=== PATIENT | male | born 1970 | race American Indian/Alaskan Native ===

== ENCOUNTER 2019-04-25 19:12 | Emergency (ER) | payer MEDICAID ==
--- NOTE | 2019-04-25 20:07 | Event Note ---
ED Screening Note Date of service: 04/25/19 Time: 20:04 ED Screening Note: Patient is a 49 yo AA male with h/o chronic lymphedema, HTN, schizophrenia and Bipolar d/o who presented to the ED with left lower leg ulcerated wounds for over 2 weeks. Patient states that he has been using peroxide to clean the wound. Patient has been on oral antibiotics, which he completed but cannot remember the name. Patient requesting for wound care. Patient is alert and oriented x 3 and is in no acute distress. This initial assessment/diagnostic orders/clinical plan/treatment(s) is/are subject to change based on patients health status, clinical progression and re- assessment by fellow clinical providers in the ED. Further treatment and workup at subsequent clinical providers discretion. Patient/guardian urged not to elope from the ED as their condition may be serious if not clinically assessed and ma naged. Initial orders include: Wound care
[2019-04-26] MEDS ORDERED: IBUPROFEN 800 MG TAB PO ONE (00:21)
[2019-04-26] MEDS ORDERED: SULFAMETHOXAZOLE/TRIMETHOPRIM 800/160MG DS TAB PO ONE (00:21)
[2019-04-26] MEDS ORDERED: MUPIROCIN 2% OINT 22 GM TP ONE (00:21)
--- NOTE | 2019-04-26 03:04 | Emergency Department Report ---
ED General Adult HPI - General Chief complaint: Wound/Laceration Stated complaint: INFECTION Source: patient, EMS Mode of arrival: Ambulatory Limitations: No Limitations - History of Present Illness Initial comments: Patient is a 49 yo AA male with h/o chronic lymphedema, HTN, schizophrenia and Bipolar d/o who presented to the ED with left lower leg ulcerated wounds for over 2 weeks. Patient states that he has been using peroxide to clean the wound. Patient has been on oral antibiotics, which he completed but cannot remember the name. Patient denies fever, chills, nausea, vomiting, dizziness, hematochezia, headache, numbness and tingling or weakness of lower extremities bilaterally, change in vision or syncope, chest pain or shortness of breath. MD Complaint: left lower leg ulcers -: Gradual, month(s) (3) Location: lower extremity (left lower) Severity scale (0 -10): 3 Quality: aching, sharp Consistency: constant Improves with: none Worsens with: none Associated Symptoms: denies other symptoms. denies: confusion, chest pain, cough, diaphoresis, headaches, loss of appetite, nausea/vomiting, rash, shortness of breath, syncope, weakness Treatments Prior to Arrival: none - Related Data Previous Rx's Medication Instructions Recorded Last Taken Type Ibuprofen [Motrin] 800 mg PO Q8HR PRN #30 tablet 04/26/19 Unknown Rx Mupirocin [Bactroban 2% OINT] 1 applic TP Q8H #1 tube 04/26/19 Unknown Rx Sulfamethoxazole/Trimethoprim 1 each PO Q12H #20 tablet 04/26/19 Unknown Rx [Bactrim DS TAB] traMADoL [Ultram] 50 mg PO Q6HR PRN #12 tablet 04/26/19 Unknown Rx Allergies Allergy/AdvReac Type Severity Reaction Status Date / Time Penicillins Allergy Unknown Verified 04/25/19 20:01 ED Review of Systems ROS: Stated complaint: INFECTION Other details as noted in HPI Constitutional: denies: chills, fever Eyes: denies: eye pain, eye discharge, vision change ENT: denies: ear pain, throat pain Respiratory: denies: cough, shortness of breath, wheezing Cardiovascular: denies: chest pain, palpitations Endocrine: no symptoms reported Gastrointestinal: denies: abdominal pain, nausea, diarrhea Genitourinary: denies: urgency, dysuria Musculoskeletal: arthralgia (left lower leg pain due to ulcerated multiple wounds), myalgia. denies: back pain Skin: other (Ulcerated left lower leg wounds). denies: rash, lesions Neurological: denies: headache, weakness, paresthesias Psychiatric: denies: anxiety, depression Hematological/Lymphatic: denies: easy bleeding, easy bruising ED Past Medical Hx - Past Medical History Previous Medical History?: No Hx Hypertension: Yes Hx Diabetes: Yes (BOARDERLINE) Hx Psychiatric Treatment: Yes - Social History Smoking Status: Current Every Day Smoker Substance Use Type: None - Medications Home Medications: Home Medications Medication Instructions Recorded Confirmed Last Taken Type Ibuprofen [Motrin] 800 mg PO Q8HR PRN #30 tablet 04/26/19 Unknown Rx Mupirocin [Bactroban 2% OINT] 1 applic TP Q8H #1 tube 04/26/19 Unknown Rx Sulfamethoxazole/Trimethoprim 1 each PO Q12H #20 tablet 04/26/19 Unknown Rx [Bactrim DS TAB] traMADoL [Ultram] 50 mg PO Q6HR PRN #12 tablet 04/26/19 Unknown Rx ED Physical Exam - General Limitations: No Limitations General appearance: alert, in no apparent distress - Head Head exam: Present: atraumatic, normocephalic, normal inspection - Eye Eye exam: Present: normal appearance, PERRL, EOMI - ENT ENT exam: Present: normal exam, normal orophraynx, mucous membranes moist, TM's normal bilaterally, normal external ear exam - Neck Neck exam: Present: normal inspection - Respiratory Respiratory exam: Present: normal lung sounds bilaterally. Absent: respiratory distress, wheezes, rales, rhonchi, chest wall tenderness, accessory muscle use, prolonged expiratory - Cardiovascular Cardiovascular Exam: Present: regular rate, normal rhythm, normal heart sounds. Absent: systolic murmur, diastolic murmur, rubs, gallop - GI/Abdominal GI/Abdominal exam: Present: soft, normal bowel sounds. Absent: tenderness, guarding, hyperactive bowel sounds, hypoactive bowel sounds - Extremities Exam Extremities exam: Present: normal inspection, full ROM, normal capillary refill, calf tenderness (left lower leg ulcerated wounds with tenderness) - Back Exam Back exam: Present: normal inspection, full ROM. Absent: tenderness, CVA tenderness (R), CVA tenderness (L), muscle spasm, paraspinal tenderness, vertebral tenderness - Neurological Exam Neurological exam: Present: alert, oriented X3, CN II-XII intact, normal gait, reflexes normal - Psychiatric Psychiatric exam: Present: normal affect, normal mood - Skin Skin exam: Present: warm, dry, intact, normal color, other (ulcerated left lower leg ulcerated wounds with tenderness and purulent discharge). Absent: rash ED Course Vital Signs 04/25/19 19:31 Temperature 98.9 F Pulse Rate 106 H Respiratory 20 Rate Blood Pressure 157/83 O2 Sat by Pulse 100 Oximetry ED Medical Decision Making - Medical Decision Making Patient is a 49 yo AA male with h/o chronic lymphedema, HTN, schizophrenia and Bipolar d/o who presented to the ED with left lower leg ulcerated wounds for over 2 weeks. In the ED patient is alert and oriented x 3 and is in no acute distress. Patient was treated for pain and had the wounds cleaned and dressed appropriately. Patient was discharged home on pain medications and oral antibiotics, and follow up with his PCP in 7-10 days for reevaluation. Patient was also advised to return the ED immediately if symptoms get worse. - Differential Diagnosis cellulitis; stasis dermatitis; lymphedema Critical care attestation.: If time is entered above; I have spent that time in minutes in the direct care of this critically ill patient, excluding procedure time. ED Disposition Clinical Impression: Cellulitis of left lower extremity, Chronic wound of extremity, Stasis edema with ulcer of left lower extremity Disposition: DC-01 TO HOME OR SELFCARE Is pt being admited?: No Does the pt Need Aspirin: No Condition: Stable Instructions: Cellulitis (ED), Stasis Dermatitis (ED), Chronic Wound Care (ED) Additional Instructions: Take medication with food, drink plenty of fluids and follow up with your primary care physician in 7-10 days for reevaluation. Return to the ED immediately if symptoms get worse. Prescriptions: Sulfamethoxazole/Trimethoprim [Bactrim DS TAB] 1 each PO Q12H #20 tablet Mupirocin [Bactroban 2% OINT] 1 applic TP Q8H #1 tube Ibuprofen [Motrin] 800 mg PO Q8HR PRN #30 tablet PRN Reason: Pain , Severe (7-10) traMADoL [Ultram] 50 mg PO Q6HR PRN #12 tablet PRN Reason: Pain Referrals: [facility] [Outside] - 3-5 Days [facility] - 3-5 Days Time of Disposition: 03:03 Print Language: HUNGARIAN
[2019-04-26 04:03] VITALS: BP 120/84
== END 2019-04-26 04:03 | disposition home or self-care (01) ==
LOC: ED 19:12
DX: I87.312 Chronic venous hypertension (idiopathic) with ulcer of left lower extremity (principal); L97.828 Non-pressure chronic ulcer of other part of left lower leg with other specified severity; L03.116 Cellulitis of left lower limb; I10 Essential (primary) hypertension; E11.9 Type 2 diabetes mellitus without complications; F17.200 Nicotine dependence, unspecified, uncomplicated; Z79.899 Other long term (current) drug therapy; Z88.0 Allergy status to penicillin

== ENCOUNTER 2019-06-14 23:04 | Emergency (ER) | payer MEDICAID ==
[2019-06-15 00:21] LABS: Basophils % (Auto) 0.5 % (0.0-1.8); Eosinophils # (Auto) 0.1 K/mm3 (0.0-0.4); Eosinophils % (Auto) 1.8 % (0.0-4.3); Hematocrit 34.4 % (35.5-45.6); Hemoglobin 11.5 gm/dl (11.8-15.2); Lymphocytes # (Auto) 1.4 K/mm3 (1.2-5.4); Lymphocytes % (Auto) 18.2 % (13.4-35.0); Mean Corpuscular HGB Conc 34 % (32-34); Mean Corpuscular Volume 79 fl (84-94); Monocytes # (Auto) 0.8 K/mm3 (0.0-0.8); Monocytes % (Auto) 10.1 % (0.0-7.3); Platelet Count 218 K/mm3 (140-440); Red Blood Count 4.37 M/mm3 (3.65-5.03); Red Cell Distribution Width 16.1 % (13.2-15.2)
[2019-06-15 00:32] LABS: Bilirubin,Urine NEG (Negative); Blood,Urine NEG (Negative); Color,Urine Yellow (Yellow); Mucus,Urine FEW /HPF; Protein,Urine <15 mg/dL mg/dL (Negative)
[2019-06-15 00:36] LABS: BUN/Creatinine Ratio 14; Blood Urea Nitrogen 13 mg/dL (9-20); Calcium 8.9 mg/dL (8.4-10.2); Hemolysis Index 2
[2019-06-15 00:39] LABS: Amphetamine Screen,Urine PRESUMPTIVE NEGATIVE; Benzodiazepines Screen,Urine PRESUMPTIVE NEGATIVE; Cannabinoid Screen,Urine PRESUMPTIVE NEGATIVE; Cocaine Screen,Urine PRESUMPTIVE NEGATIVE; Methadone Screen,Urine PRESUMPTIVE NEGATIVE; Opiate Screen,Urine PRESUMPTIVE NEGATIVE
--- NOTE | 2019-06-15 01:32 | Emergency Department Report ---
<LEXIS ABREU - Last Filed: 06/15/19 15:20> ED Psych HPI - General Chief Complaint: Psych Stated Complaint: MH Time Seen by Provider: 06/15/19 00:23 - Related Data Previous Rx's Medication Instructions Recorded Last Taken Type Ibuprofen [Motrin] 800 mg PO Q8HR PRN #30 tablet 04/26/19 Unknown Rx Mupirocin [Bactroban 2% OINT] 1 applic TP Q8H #1 tube 04/26/19 Unknown Rx Sulfamethoxazole/Trimethoprim 1 each PO Q12H #20 tablet 04/26/19 Unknown Rx [Bactrim DS TAB] traMADoL [Ultram] 50 mg PO Q6HR PRN #12 tablet 04/26/19 Unknown Rx Allergies Allergy/AdvReac Type Severity Reaction Status Date / Time Penicillins Allergy Unknown Verified 04/25/19 20:01 ED Past Medical Hx - Medications Home Medications: Home Medications Medication Instructions Recorded Confirmed Last Taken Type Ibuprofen [Motrin] 800 mg PO Q8HR PRN #30 tablet 04/26/19 Unknown Rx Mupirocin [Bactroban 2% OINT] 1 applic TP Q8H #1 tube 04/26/19 Unknown Rx Sulfamethoxazole/Trimethoprim 1 each PO Q12H #20 tablet 04/26/19 Unknown Rx [Bactrim DS TAB] traMADoL [Ultram] 50 mg PO Q6HR PRN #12 tablet 04/26/19 Unknown Rx ED Course - Reevaluation(s) Reevaluation #1: 06/15/19 15:21 PINO DAVE Male : 1970 MedRec# [id number] 06/15/19 14:38 - MH Supervisor [employer]'s Note by ANA ISAAC Acct Num: [id number] : 1970 Patient Age: 49 MENTAL HEALTH ASSESSMENT COMPLETED: Pt is a 49 year old male who presented to the ED for a wound on his leg and reporting SI/HI at triage (06/13); pt reported SI w/ plan to jump in front of a train to dr (06/14 1:20am); placed on 1013 and mental health consult ordered. Assessment conducted 1pm 06/15/2019. Pt denies to this sales assistant institutional sales any suicidal thoughts or plans. Pt explained that he told the dr he was going to get hit by a train, "because I was mad at the [place] [facility]; I want more allowance and to buy more cigarettes." The therapist and machine group leader reports that the pt has no history of making suicidal threats and no attempts. "He does say things to get attention to get his way." Pt was future planning and identified goals. Pt carries a diagnosis of Bipolar Disorder. Pt currently is involved with the [facility] ([place], [place]). The pt is involved with groups Mon to Tue 10am to 2pm (currently on hold due to COVID-19). The pt sees his psychiatrist, therapist and PP/case aide weekly. The pt currently has telehealth appointments. The pt had an inpatient admission in December 2018, but pt reports he can not recall why he was admitted. Pt is inconsistent with taking his medications. The pt is displaying no signs of thought disorder/psychosis at this time. The pt does present with a speech delay; although collateral reports that this is the pt's baseline when speaking. Advised to recommend the pt speak slower and more clearly, and the pt will be better understood. The pt denies AH or VH. The pt has impaired concentration and attention. The pt has limited judgment and fair insight. PT denies any homicidal ideations or plans. Pt denies substance use; pt's toxicology came back negative. Pt resides at [facility] ([address], [place] [address]) a home of [employer]. RECOMMENDED: Recommend rescinding 1013 as pt does not meet criteria for inpatient admission at this time. Recommend the pt return to outpatient providers. Spoke with pt's therapist who is going to advise the pt's team (therapist, case aide, peer support and psychiatrist) that the pt has been to the ED. The therapist will be following up with the pt this evening via phone. Safety plan will be completed with the patient and speak with his support team. The pt has a wound care appointment June 18 at 1pm at [facility]. Ana Betancourt LPC Initialized on 06/15/19 14:38 - END OF NOTE Per my exam the patient is bilateral lower extremities show probable lymphedema. Patient has multiple open ulcers with no surrounding erythema. There is a crusted coating of serous fluid on most of the wounds. The wounds were covered with Xeroform gauze and Saulo wrap. Patient will follow-up with wound care clinic. ED Medical Decision Making - Lab Data Result diagrams: 06/14/19 23:58 06/14/19 23:58 ED Disposition Clinical Impression: Suicidal ideation, Lymphedema of both lower extremities, Chronic cutaneous venous stasis ulcer, Medical clearance for psychiatric admission, Homeless, Malingerer Disposition: DC-01 TO HOME OR SELFCARE Is pt being admited?: No Does the pt Need Aspirin: No Condition: Stable Referrals: PRIMARY CARE, [Primary Care Provider] - 3-5 Days [facility] [Outside] - 3-5 Days <JUANCHO TERRY - Last Filed: 06/15/19 19:21> ED Psych HPI - General Source: patient Mode of arrival: Ambulatory Limitations: No Limitations - History of Present Illness Initial Comments: 49 yo AA male with h/o chronic lymphedema, HTN, schizophrenia and Bipolar d/o presents to the hospital planing of suicidal ideation and chronic leg wounds. Patient has had wounds to his left leg for least 3 months. Patient has been to the ER multiple times since April with complaint of leg wounds as well. He has been intermittently treated with oral antibiotics and topical anti-microbial medication. Patient is homeless he states he cleans wounds currently with hydrogen peroxide and is not currently on antibiotics. He denies fever. He has not followed up with wound care or primary care doctor as recommended on previous visits. He now complains of being suicidal since this morning with plan to jump in front of a train. He denies previous suicidal attempt. ED Review of Systems ROS: Stated complaint: MH Other details as noted in HPI Comment: All other systems reviewed and negative ED Past Medical Hx - Past Medical History Previous Medical History?: Yes Hx Hypertension: Yes Hx Diabetes: Yes (BOARDERLINE) Hx Psychiatric Treatment: Yes (Schizophrenia, bipolar disorder) Additional medical history: Lymphedema - Surgical History Past Surgical History?: Yes Additional Surgical History: leg - Social History Smoking Status: Current Every Day Smoker Substance Use Type: None ED Physical Exam - General Limitations: No Limitations - Other Other exam information: General: No acute distress Head: Atraumatic Eyes: normal appearance ENT: Moist mucous membranes Neck: Normal appearance, no midline tenderness Chest: Clear to auscultation bilaterally CV: Regular rate and rhythm Abdomen: Soft, normal bowel sounds, nontender, nondistended, no rebound or guarding Back: Normal inspection Extremity: Bilateral lymphedema with skin ulcerations to left lower leg. No warmth or purulent drainage Neuro: Alert O x 3, no facial asymmetry, speech clear, no gross motor sensory deficit Skin: See extremity exam ED Course Vital Signs 06/14/19 06/14/19 06/15/19 23:24 23:29 00:30 Temperature 97.6 F Pulse Rate 102 H Respiratory 20 20 Rate Blood Pressure 110/64 Blood Pressure [Right] O2 Sat by Pulse 95 96 Oximetry 06/15/19 06/15/19 02:06 09:40 Temperature 98.1 F 98.2 F Pulse Rate 84 87 Respiratory 18 22 Rate Blood Pressure Blood Pressure 128/57 142/88 [Right] O2 Sat by Pulse 98 98 Oximetry ED Medical Decision Making - Lab Data Result diagrams: 06/14/19 23:58 06/14/19 23:58 - Medical Decision Making Patient presents to the hospital with suicidal ideation. He is medically cleared and 1013 has been signed. Patient has chronic lymphedema and chronic leg ulcerations. No signs of active infection at this time. Wound care consult requested in a.m. for advice regarding proper wound care. - Differential Diagnosis Suicidal, homeless, homicidal Critical Care Time: No Critical care attestation.: If time is entered above; I have spent that time in minutes in the direct care of this critically ill patient, excluding procedure time. ED Disposition Is pt being admited?: No Time of Disposition: 01:38
[2019-06-15 09:43] VITALS: BP 142/88
[2019-06-15] MEDS ORDERED: ADENOSINE 6 MG/2 ML INJ ONE (12:02)
== END 2019-06-15 17:30 | disposition home or self-care (01) ==
LOC: ED 23:04
DX: R45.851 Suicidal ideations (principal); I89.0 Lymphedema, not elsewhere classified; L97.829 Non-pressure chronic ulcer of other part of left lower leg with unspecified severity; L97.819 Non-pressure chronic ulcer of other part of right lower leg with unspecified severity; Z00.8 Encounter for other general examination; Z59.0 Homelessness; Z76.5 Malingerer [conscious simulation]
CPT/HCPCS: 36415; 80048; 80307; 80320; 81001; 85025; 99284; G0480; J0153

== ENCOUNTER 2019-07-05 08:12 | Emergency (ER) | payer MEDICAID ==
[2019-07-05 08:33] VITALS: BP 122/73
--- NOTE | 2019-07-05 08:47 | Emergency Department Report ---
Chief Complaint: Skin Rash Stated Complaint: LEFT PAIN - HPI History of Present Illness: comes to ER for covid test no symptoms when told we do not test he said his leg hurts ambulatory - ROS Review of Systems: see above - Exam Vital Signs: Vital Signs 07/05/19 08:19 Temperature 97.6 F Pulse Rate 95 H Respiratory 20 Rate Blood Pressure 122/73 [Left] O2 Sat by Pulse 96 Oximetry Physical Exam: abc intact vss MSE screening note: Focused history and physical exam performed. Due to findings the following was ordered: NO LIFE THREAT Patient discussed with doctor:: DAVID BAUTISTA ED Disposition for MSE Disposition: DC-07 LEFT AGAINST MED ADVICE Condition: Stable Referrals: PRIMARY CARE, [Primary Care Provider] - 3-5 Days
== END 2019-07-05 08:40 | disposition left against medical advice (07) ==
LOC: ED 08:12
DX: M79.605 Pain in left leg (principal); Z88.0 Allergy status to penicillin
CPT/HCPCS: 99281

== ENCOUNTER 2019-07-06 00:32 | Emergency (ER) | payer MEDICAID ==
[2019-07-06 00:54] VITALS: BP 143/85
--- NOTE | 2019-07-06 02:33 | Emergency Department Report ---
ED General Adult HPI - General Chief complaint: Medical Clearance Stated complaint: RIGHT SIDE RIB PAIN Time Seen by Provider: 07/06/19 02:02 Source: patient Mode of arrival: Ambulatory Limitations: No Limitations - History of Present Illness Initial comments: Mr. Alvarez presents tonight for vague complaint of generalized pain he has been here once today requesting a COVID test. Patient denies symptoms on exam. He is with no acute distress at this time, he is ANO x3, ambulatory, lung sounds are clear there is no chest wall pain on palpation this is likely malingering. Patient will be discharged at this time. Given instruction to follow-up with PCP in 2 to 3 days. MD Complaint: 2 -: days(s) Radiation: non-radiation Severity scale (0 -10): 0 Consistency: intermittent Improves with: none Worsens with: none Associated Symptoms: denies other symptoms Treatments Prior to Arrival: none - Related Data Previous Rx's Medication Instructions Recorded Last Taken Type Ibuprofen [Motrin] 800 mg PO Q8HR PRN #30 tablet 04/26/19 Unknown Rx Mupirocin [Bactroban 2% OINT] 1 applic TP Q8H #1 tube 04/26/19 Unknown Rx Sulfamethoxazole/Trimethoprim 1 each PO Q12H #20 tablet 04/26/19 Unknown Rx [Bactrim DS TAB] traMADoL [Ultram] 50 mg PO Q6HR PRN #12 tablet 04/26/19 Unknown Rx Allergies Allergy/AdvReac Type Severity Reaction Status Date / Time Penicillins Allergy Unknown Verified 07/05/19 08:13 ED Review of Systems ROS: Stated complaint: RIGHT SIDE RIB PAIN Other details as noted in HPI Constitutional: denies: chills, fever Eyes: denies: eye pain, eye discharge, vision change ENT: denies: ear pain, throat pain Respiratory: denies: cough, shortness of breath, wheezing Cardiovascular: denies: chest pain, palpitations Endocrine: no symptoms reported Gastrointestinal: denies: abdominal pain, nausea, vomiting, diarrhea Genitourinary: denies: urgency, dysuria Musculoskeletal: denies: back pain, joint swelling, arthralgia Skin: denies: rash, lesions Neurological: denies: headache, weakness, paresthesias Psychiatric: denies: anxiety, depression Hematological/Lymphatic: as per HPI ED Past Medical Hx - Past Medical History Previous Medical History?: Yes Hx Hypertension: Yes Hx Diabetes: Yes (BOARDERLINE) Hx Psychiatric Treatment: Yes (Schizophrenia, bipolar disorder) Additional medical history: Lymphedema - Surgical History Past Surgical History?: Yes Additional Surgical History: leg - Social History Smoking Status: Current Every Day Smoker Substance Use Type: None - Medications Home Medications: Home Medications Medication Instructions Recorded Confirmed Last Taken Type Ibuprofen [Motrin] 800 mg PO Q8HR PRN #30 tablet 04/26/19 Unknown Rx Mupirocin [Bactroban 2% OINT] 1 applic TP Q8H #1 tube 04/26/19 Unknown Rx Sulfamethoxazole/Trimethoprim 1 each PO Q12H #20 tablet 04/26/19 Unknown Rx [Bactrim DS TAB] traMADoL [Ultram] 50 mg PO Q6HR PRN #12 tablet 04/26/19 Unknown Rx ED Physical Exam - General Limitations: No Limitations General appearance: alert, in no apparent distress - Head Head exam: Present: atraumatic, normocephalic - Eye Eye exam: Present: normal appearance, PERRL, EOMI Pupils: Present: normal accommodation - ENT ENT exam: Present: mucous membranes moist - Neck Neck exam: Present: normal inspection, full ROM. Absent: tenderness - Respiratory Respiratory exam: Present: normal lung sounds bilaterally. Absent: respiratory distress, wheezes, rales, rhonchi, stridor, chest wall tenderness - Cardiovascular Cardiovascular Exam: Present: regular rate, normal rhythm, normal heart sounds. Absent: systolic murmur, diastolic murmur, rubs, gallop - GI/Abdominal GI/Abdominal exam: Present: soft, normal bowel sounds. Absent: distended, tenderness, guarding, rebound, rigid, bruit, hernia - Rectal Rectal exam: Present: deferred - Extremities Exam Extremities exam: Present: normal inspection, full ROM. Absent: tenderness - Back Exam Back exam: Present: normal inspection. Absent: CVA tenderness (R), CVA tenderness (L), rash noted - Neurological Exam Neurological exam: Present: alert, oriented X3, CN II-XII intact, normal gait - Psychiatric Psychiatric exam: Present: normal affect, normal mood - Skin Skin exam: Present: warm, dry, intact, normal color ED Course Vital Signs 07/06/19 00:52 Temperature 97.5 F L Pulse Rate 80 Respiratory 20 Rate Blood Pressure 143/85 O2 Sat by Pulse 96 Oximetry ED Medical Decision Making - Medical Decision Making generalized pain no physical pain findings on exam, pt will be dc'd top self , dc'd in stable condition at this time. Critical care attestation.: If time is entered above; I have spent that time in minutes in the direct care of this critically ill patient, excluding procedure time. ED Disposition Clinical Impression: Musculoskeletal pain Disposition: DC-01 TO HOME OR SELFCARE Is pt being admited?: No Condition: Stable Instructions: Musculoskeletal Pain (ED) Additional Instructions: take otc tylenol as needed for pain Referrals: [facility] [Provider Group] - 3-5 Days Forms: Work/School Release Form(ED) Time of Disposition: 02:37
== END 2019-07-06 02:42 | disposition home or self-care (01) ==
LOC: ED 00:32
DX: M79.18 Myalgia, other site (principal); I10 Essential (primary) hypertension; E11.9 Type 2 diabetes mellitus without complications; F20.9 Schizophrenia, unspecified; F31.9 Bipolar disorder, unspecified; I89.0 Lymphedema, not elsewhere classified; F17.200 Nicotine dependence, unspecified, uncomplicated; Z98.890 Other specified postprocedural states; Z79.1 Long term (current) use of non-steroidal anti-inflammatories (NSAID); Z79.899 Other long term (current) drug therapy; Z88.0 Allergy status to penicillin
CPT/HCPCS: 99282

== ENCOUNTER 2019-07-17 12:58 | Emergency (ER) | payer MEDICAID ==
--- NOTE | 2019-07-17 13:33 | Emergency Department Report ---
ED Psych HPI - General Chief Complaint: Medical Clearance Stated Complaint: Time Seen by Provider: 07/17/19 13:23 Source: patient Mode of arrival: Wheelchair - History of Present Illness Initial Comments: Patient is a 49-year-old F Gabones[place] male who was brought in by police because of dangerous behavior. Patient states he was leaving his alf because he does not like how they treat him and was walking in the middle of the [place]. Patient states he was only in the middle of the highway because "I have to cross the road". Patient states that he left his alf because the counselor "talks to him like he was a child". Patient states that he is trying to walk to [place] "to get his group on baby". Police received numerous phone calls from drivers stating that the patient is Walking back and forth across [address] [facility] [address]. Patient denies being suicidal but does not show good insight that his behavior was potentially life-threatening - Related Data Previous Rx's Medication Instructions Recorded Last Taken Type Ibuprofen [Motrin] 800 mg PO Q8HR PRN #30 tablet 04/26/19 Unknown Rx Mupirocin [Bactroban 2% OINT] 1 applic TP Q8H #1 tube 04/26/19 Unknown Rx Sulfamethoxazole/Trimethoprim 1 each PO Q12H #20 tablet 04/26/19 Unknown Rx [Bactrim DS TAB] traMADoL [Ultram] 50 mg PO Q6HR PRN #12 tablet 04/26/19 Unknown Rx Allergies Allergy/AdvReac Type Severity Reaction Status Date / Time Penicillins Allergy Unknown Verified 07/17/19 13:09 ED Review of Systems ROS: Stated complaint: AMS Other details as noted in HPI Comment: All other systems reviewed and negative ED Past Medical Hx - Past Medical History Previous Medical History?: Yes Hx Hypertension: Yes Hx Diabetes: Yes (Borderline) Hx Psychiatric Treatment: Yes (Schizophrenia, bipolar disorder) Additional medical history: Lymphedema - Surgical History Additional Surgical History: leg - Social History Smoking Status: Current Every Day Smoker - Medications Home Medications: Home Medications Medication Instructions Recorded Confirmed Last Taken Type Ibuprofen [Motrin] 800 mg PO Q8HR PRN #30 tablet 04/26/19 Unknown Rx Mupirocin [Bactroban 2% OINT] 1 applic TP Q8H #1 tube 04/26/19 Unknown Rx Sulfamethoxazole/Trimethoprim 1 each PO Q12H #20 tablet 04/26/19 Unknown Rx [Bactrim DS TAB] traMADoL [Ultram] 50 mg PO Q6HR PRN #12 tablet 04/26/19 Unknown Rx ED Physical Exam - General Limitations: Other General appearance: alert, in no apparent distress - Head Head exam: Present: atraumatic, normocephalic - Eye Eye exam: Present: normal appearance - ENT ENT exam: Present: mucous membranes moist - Neck Neck exam: Present: normal inspection - Respiratory Respiratory exam: Present: normal lung sounds bilaterally. Absent: respiratory distress - Cardiovascular Cardiovascular Exam: Present: regular rate, normal rhythm. Absent: systolic murmur, diastolic murmur, rubs, gallop - GI/Abdominal GI/Abdominal exam: Present: soft, normal bowel sounds - Rectal Rectal exam: Present: deferred - Extremities Exam Extremities exam: Present: normal inspection - Back Exam Back exam: Present: normal inspection - Neurological Exam Neurological exam: Present: alert, oriented X3 - Psychiatric Psychiatric exam: Present: normal affect, normal mood - Skin Skin exam: Present: warm, dry, intact, normal color. Absent: rash ED Course Vital Signs 07/17/19 07/17/19 14:01 18:20 Temperature 98.2 F Pulse Rate 80 76 Respiratory 16 18 Rate Blood Pressure 125/67 134/80 [Right] O2 Sat by Pulse 97 97 Oximetry - Reevaluation(s) Reevaluation #1: 07/17/19 19:00 PINO DAVE Male : 1970 MedRec# [id number] 07/17/19 17:42 - Infection Nurse Note by ELKE KAPADIA Acct Num: [id number] : 1970 Patient Age: 49 Pt is a 49 yo AA male presenting to ED for MHE, as pt reported hx of paranoid schizophrenia. During ax, pt present with cooperative behaviors, calm mood and congruent affect. Pt was found walking into traffic. Pt appeared distracted during the assessment due to eating a dinner tray. Pt reports that he was trying to walk to [place]. According to collateral, pt walks all night and sleeps during the day. alf leader reports pt's medication is supervised. Pt unable to identify triggers. Pt denies hx of attempts. Pt denies HI. Pt denies A/V H. Pt reports dx of Paranoid Schizophrenia. Pt denies alcohol or substance abuse use. Pt resides in a alf. Pt denies legal issues. Recommendations: At this time pt presents with paranoid schiozophrenia. Pt denies A/V H. Pt does not meet criteria for IP Tx. Pt will follow up with current mental health provider. Initialized on 07/17/19 17:42 - END OF NOTE ED Medical Decision Making - Lab Data Result diagrams: 07/17/19 15:01 07/17/19 14:02 - Medical Decision Making Patient is been cleared by mental health assessment team. Patient is been accepted back to his alf. Critical care attestation.: If time is entered above; I have spent that time in minutes in the direct care of this critically ill patient, excluding procedure time. ED Disposition Clinical Impression: Schizophrenia, Behavior concern in adult Disposition: DC-01 TO HOME OR SELFCARE Is pt being admited?: No Does the pt Need Aspirin: No Condition: Stable Referrals: PRIMARY CARE, [Primary Care Provider] - 3-5 Days Time of Disposition: 19:02
[2019-07-17 14:45] LABS: BUN/Creatinine Ratio 14; Blood Urea Nitrogen 11 mg/dL (9-20); Calcium 9.5 mg/dL (8.4-10.2); Hemolysis Index 25
[2019-07-17 15:25] LABS: Basophils # (Auto) 0.1 K/mm3 (0.0-0.1); Basophils % (Auto) 1.2 % (0.0-1.8); Eosinophils # (Auto) 0.3 K/mm3 (0.0-0.4); Eosinophils % (Auto) 4.2 % (0.0-4.3); Hematocrit 36.5 % (35.5-45.6); Hemoglobin 12.2 gm/dl (11.8-15.2); Lymphocytes # (Auto) 1.2 K/mm3 (1.2-5.4); Lymphocytes % (Auto) 16.5 % (13.4-35.0); Mean Corpuscular HGB Conc 33 % (32-34); Mean Corpuscular Volume 78 fl (84-94); Monocytes # (Auto) 0.9 K/mm3 (0.0-0.8); Monocytes % (Auto) 12.8 % (0.0-7.3); Platelet Count 146 K/mm3 (140-440); Red Blood Count 4.67 M/mm3 (3.65-5.03); Red Cell Distribution Width 17.3 % (13.2-15.2)
[2019-07-17 16:32] LABS: Bilirubin,Urine NEG (Negative); Blood,Urine NEG (Negative); Color,Urine Yellow (Yellow); Mucus,Urine 1+ /HPF; Protein,Urine <15 mg/dL mg/dL (Negative); WBC,Urine < 1.0 /HPF (0.0-6.0)
[2019-07-17 16:39] LABS: Amphetamine Screen,Urine PRESUMPTIVE NEGATIVE; Benzodiazepines Screen,Urine PRESUMPTIVE NEGATIVE; Cannabinoid Screen,Urine PRESUMPTIVE NEGATIVE; Cocaine Screen,Urine PRESUMPTIVE NEGATIVE; Methadone Screen,Urine PRESUMPTIVE NEGATIVE; Opiate Screen,Urine PRESUMPTIVE NEGATIVE
[2019-07-17 18:20] VITALS: BP 134/80
== END 2019-07-18 00:10 | disposition home or self-care (01) ==
LOC: ED 12:58 → EEVIPCON 12:58 → ED 07-18 00:10
DX: F20.89 Other schizophrenia (principal); R46.89 Other symptoms and signs involving appearance and behavior; I10 Essential (primary) hypertension; E11.9 Type 2 diabetes mellitus without complications; F31.9 Bipolar disorder, unspecified; F17.200 Nicotine dependence, unspecified, uncomplicated; Z79.899 Other long term (current) drug therapy; Z88.0 Allergy status to penicillin
CPT/HCPCS: 36415; 80048; 80307; 80320; 81001; 85025; G0480

== ENCOUNTER 2020-01-19 15:03 | Emergency (ER) | payer MEDICAID ==
[2020-01-19 15:42] VITALS: BP 114/53
== END 2020-01-19 18:00 | disposition left against medical advice (07) ==
LOC: ED 15:03
DX: M79.604 Pain in right leg (principal); Z53.21 Procedure and treatment not carried out due to patient leaving prior to being seen by health care provider

== ENCOUNTER 2020-01-19 21:31 | Emergency (ER) | payer MEDICAID | END 2020-01-19 21:45 | disposition left against medical advice (07) | LOC: ED 21:31 | DX: M79.604 Pain in right leg (principal); Z53.21 Procedure and treatment not carried out due to patient leaving prior to being seen by health care provider ==

== ENCOUNTER 2020-01-20 22:30 | Emergency (ER) | payer MEDICAID ==
[2020-01-21 03:51] VITALS: BP 118/81
[2020-01-21 05:15] LABS: Bilirubin,Urine NEG (Negative); Blood,Urine NEG (Negative); Color,Urine Yellow (Yellow); Hyaline Casts,Urine 3 /LPF; Mucus,Urine 1+ /HPF; Protein,Urine <15 mg/dL mg/dL (Negative)
--- NOTE | 2020-01-21 06:08 | Emergency Department Report ---
ED General Adult HPI - General Chief complaint: Urogenital-Male Stated complaint: HEMATURIA Source: patient Mode of arrival: Ambulatory Limitations: No Limitations - History of Present Illness Initial comments: Patient is a 50-year-old -Maced[place] male with a history of hypertension, gma-gqzwuxm-qxpeoyggs diabetes, chronic lymphedema of the lower extremities, bipolar disorder and paranoid schizophrenia who presents to the ED with complaint of acute onset hematuria and low back pain for the last 12 hours intermittently. Patient states that he is homeless and is walking most of the time in the day but noticed the color of his urine was dark. Patient denies dysuria, testicular pain, penile discharge, traumatic injury, numbness and tingling or weakness of lower extremities bilaterally, fever, chills, abdominal pain, nausea, vomiting, diarrhea, dizziness or headache. MD Complaint: Hematuria; low back pain -: Sudden, hour(s) (12) Location: back, genitals Radiation: non-radiation Severity scale (0 -10): 0 Quality: dull Consistency: intermittent Improves with: none Worsens with: none Associated Symptoms: denies other symptoms. denies: confusion, chest pain, cough, diaphoresis, fever/chills, loss of appetite, malaise, nausea/vomiting, seizure, shortness of breath, syncope, weakness Treatments Prior to Arrival: none - Related Data Previous Rx's Medication Instructions Recorded Last Taken Type Ibuprofen [Motrin] 800 mg PO Q8HR PRN #30 tablet 04/26/19 Unknown Rx Mupirocin [Bactroban 2% OINT] 1 applic TP Q8H #1 tube 04/26/19 Unknown Rx Sulfamethoxazole/Trimethoprim 1 each PO Q12H #20 tablet 04/26/19 Unknown Rx [Bactrim DS TAB] traMADoL [Ultram] 50 mg PO Q6HR PRN #12 tablet 04/26/19 Unknown Rx Allergies Allergy/AdvReac Type Severity Reaction Status Date / Time Penicillins Allergy Unknown Verified 07/17/19 13:09 ED Review of Systems ROS: Stated complaint: HEMATURIA Other details as noted in HPI Constitutional: denies: chills, fever Eyes: denies: eye pain, eye discharge, vision change ENT: denies: ear pain, throat pain Respiratory: denies: cough, shortness of breath, wheezing Cardiovascular: denies: chest pain, palpitations Endocrine: no symptoms reported Gastrointestinal: denies: abdominal pain, nausea, diarrhea Genitourinary: hematuria. denies: urgency, dysuria, frequency Musculoskeletal: back pain (Low back pain). denies: joint swelling, arthralgia Skin: denies: rash, lesions Neurological: denies: headache, weakness, paresthesias Psychiatric: denies: anxiety, depression Hematological/Lymphatic: denies: easy bleeding, easy bruising ED Past Medical Hx - Past Medical History Previous Medical History?: Yes Hx Hypertension: Yes Hx Diabetes: Yes (Borderline) Hx Psychiatric Treatment: Yes (Schizophrenia, bipolar disorder) Additional medical history: Lymphedema - Surgical History Past Surgical History?: Yes Additional Surgical History: leg - Social History Smoking Status: Current Every Day Smoker Substance Use Type: None - Medications Home Medications: Home Medications Medication Instructions Recorded Confirmed Last Taken Type Ibuprofen [Motrin] 800 mg PO Q8HR PRN #30 tablet 04/26/19 Unknown Rx Mupirocin [Bactroban 2% OINT] 1 applic TP Q8H #1 tube 04/26/19 Unknown Rx Sulfamethoxazole/Trimethoprim 1 each PO Q12H #20 tablet 04/26/19 Unknown Rx [Bactrim DS TAB] traMADoL [Ultram] 50 mg PO Q6HR PRN #12 tablet 04/26/19 Unknown Rx ED Physical Exam - General Limitations: No Limitations General appearance: alert, in no apparent distress - Head Head exam: Present: atraumatic, normocephalic, normal inspection - Eye Eye exam: Present: normal appearance, PERRL, EOMI Pupils: Present: normal accommodation - ENT ENT exam: Present: normal exam, normal orophraynx, mucous membranes moist, TM's normal bilaterally, normal external ear exam - Neck Neck exam: Present: normal inspection, full ROM - Respiratory Respiratory exam: Present: normal lung sounds bilaterally. Absent: respiratory distress, wheezes, rales, rhonchi, chest wall tenderness, accessory muscle use - Cardiovascular Cardiovascular Exam: Present: regular rate, normal rhythm, normal heart sounds. Absent: systolic murmur, diastolic murmur, rubs, gallop - GI/Abdominal GI/Abdominal exam: Present: soft, normal bowel sounds. Absent: tenderness, guarding, hyperactive bowel sounds, hypoactive bowel sounds - Extremities Exam Extremities exam: Present: normal inspection, full ROM, normal capillary refill - Back Exam Back exam: Present: normal inspection, full ROM, tenderness (Palpable mild lumbosacral paraspinal musculoskeletal tenderness), muscle spasm, paraspinal tenderness. Absent: CVA tenderness (L) - Neurological Exam Neurological exam: Present: alert, oriented X3, CN II-XII intact, normal gait, reflexes normal - Psychiatric Psychiatric exam: Present: normal affect, normal mood - Skin Skin exam: Present: warm, dry, intact, normal color. Absent: rash ED Course Vital Signs 01/20/20 23:00 Temperature 98.1 F Pulse Rate 100 H Respiratory 18 Rate Blood Pressure 118/81 [Left] O2 Sat by Pulse 100 Oximetry ED Medical Decision Making - Medical Decision Making This is a 50-year-old -Maced[place] male with a history of hypertension, aov-dgqkwjf-hdlsyomyk diabetes, chronic lymphedema of the lower extremities, bipolar disorder and paranoid schizophrenia who presents to the ED with complaint of acute onset hematuria and low back pain for the last 12 hours intermittently. Patient states that he is homeless and is walking most of the time in the day but noticed the color of his urine was dark. In the ED, patient is alert and oriented x3 and is not in distress. Urinalysis showed no sign of urinary tract infection, hematuria or kidney stones. Patient was discharged from the ED and advised to follow-up with his primary care physician in 7 to 10 days for reevaluation. Patient was also advised to drink plenty of fluids. Patient was advised to return to the ED immediately if symptoms get worse. - Differential Diagnosis Muscle spasm, UTI, kidney stones, muscle strain, STD Critical care attestation.: If time is entered above; I have spent that time in minutes in the direct care of this critically ill patient, excluding procedure time. ED Disposition Clinical Impression: Spasm of muscle of lower back Disposition: DC-01 TO HOME OR SELFCARE Is pt being admited?: No Does the pt Need Aspirin: No Condition: Stable Instructions: Back Pain (ED), Muscle Spasm (ED) Additional Instructions: Take vmnm-vzw-azusrkm pain medication such as ibuprofen or Tylenol as needed for pain, drink plenty of fluids and follow-up with your primary care physician in 7 to 10 days for reevaluation. Return to the ED immediately if symptoms get worse. Referrals: [facility] [Provider Group] - 7-10 days Time of Disposition: 06:08 Print Language: KISWAHILI
[2020-01-21] MEDS ORDERED: ACETAMINOPHEN 500 MG TAB PO ONE (06:10)
== END 2020-01-21 06:51 | disposition home or self-care (01) ==
LOC: ED 22:30
DX: M62.830 Muscle spasm of back (principal); Z88.0 Allergy status to penicillin
CPT/HCPCS: 81001

== ENCOUNTER 2020-01-23 00:16 | Emergency (ER) | payer MEDICAID ==
[2020-01-23 01:58] LABS: Hematocrit 40.3 % (35.5-45.6); Hemoglobin 13.5 gm/dl (11.8-15.2); Mean Corpuscular HGB Conc 34 % (32-34); Mean Corpuscular Volume 78 fl (84-94); Platelet Count 214 K/mm3 (140-440); Red Blood Count 5.14 M/mm3 (3.65-5.03); Red Cell Distribution Width 18.7 % (13.2-15.2)
[2020-01-23 02:19] LABS: Alanine Aminotransferase 12 units/L (7-56); Albumin 4.9 g/dL (3.9-5); Blood Urea Nitrogen 7 mg/dL (9-20); Calcium 9.9 mg/dL (8.4-10.2); Hemolysis Index 4
[2020-01-23 02:20] LABS: BUN/Creatinine Ratio 10
--- NOTE | 2020-01-23 03:29 | Emergency Department Report ---
ED Abdominal Pain HPI - General Chief Complaint: Abdominal Pain Stated Complaint: ABDOMINAL PAIN Source: patient Mode of arrival: Ambulatory Limitations: No Limitations - History of Present Illness Initial Comments: Patient is a 50-year-old -[place] male with a history of paranoid schizophrenia, bipolar disorder, hypertension, rmd-czqomvl-xeieuvvpd diabetes and chronic bilateral lower extremity lymphedema who presents to the ED with complaint of acute onset persistent intermittent diffuse abdominal pain for the last 8 hours. Patient states that he has not eaten food for 8 hours. Patient denies dizziness, syncope, chest pain, shortness of breath, fever, chills, n ausea, vomiting, diarrhea, constipation, cough, back pain, dysuria, urinary frequency and urgency, hematuria or testicular pain, fall or traumatic injury. MD Complaint: abdominal pain -: Sudden, hour(s) (8) Location: diffuse Radiation: none Migration to: no migration Severity scale (0 -10): 1 Quality: dull Consistency: intermittent Improves With: nothing Worsens With: nothing Associated Symptoms: denies other symptoms. denies: nausea, vomiting, diarrhea, fever, chills, constipation, dysuria, hematochezia, hematuria, anorexia, syncope, other - Related Data Previous Rx's Medication Instructions Recorded Last Taken Type Ibuprofen [Motrin] 800 mg PO Q8HR PRN #30 tablet 04/26/19 Unknown Rx Mupirocin [Bactroban 2% OINT] 1 applic TP Q8H #1 tube 04/26/19 Unknown Rx Sulfamethoxazole/Trimethoprim 1 each PO Q12H #20 tablet 04/26/19 Unknown Rx [Bactrim DS TAB] traMADoL [Ultram] 50 mg PO Q6HR PRN #12 tablet 04/26/19 Unknown Rx Allergies Allergy/AdvReac Type Severity Reaction Status Date / Time Penicillins Allergy Unknown Verified 07/17/19 13:09 ED Review of Systems ROS: Stated complaint: ABDOMINAL PAIN Other details as noted in HPI Constitutional: denies: chills, fever Eyes: denies: eye pain, eye discharge, vision change ENT: denies: ear pain, throat pain Respiratory: denies: cough, shortness of breath, wheezing Cardiovascular: denies: chest pain, palpitations Endocrine: no symptoms reported Gastrointestinal: abdominal pain. denies: nausea, vomiting, diarrhea Genitourinary: denies: urgency, dysuria Musculoskeletal: denies: back pain, joint swelling, arthralgia Skin: denies: rash, lesions Neurological: denies: headache, weakness, paresthesias Psychiatric: denies: anxiety, depression Hematological/Lymphatic: denies: easy bleeding, easy bruising ED Past Medical Hx - Past Medical History Hx Hypertension: Yes Hx Diabetes: Yes (Borderline) Hx Psychiatric Treatment: Yes (Schizophrenia, bipolar disorder) Additional medical history: Lymphedema - Surgical History Additional Surgical History: leg - Social History Smoking Status: Current Every Day Smoker Substance Use Type: None - Medications Home Medications: Home Medications Medication Instructions Recorded Confirmed Last Taken Type Ibuprofen [Motrin] 800 mg PO Q8HR PRN #30 tablet 04/26/19 Unknown Rx Mupirocin [Bactroban 2% OINT] 1 applic TP Q8H #1 tube 04/26/19 Unknown Rx Sulfamethoxazole/Trimethoprim 1 each PO Q12H #20 tablet 04/26/19 Unknown Rx [Bactrim DS TAB] traMADoL [Ultram] 50 mg PO Q6HR PRN #12 tablet 04/26/19 Unknown Rx ED Physical Exam - General Limitations: No Limitations General appearance: alert, in no apparent distress - Head Head exam: Present: atraumatic, normocephalic, normal inspection - Eye Eye exam: Present: normal appearance, PERRL, EOMI Pupils: Present: normal accommodation - ENT ENT exam: Present: normal exam, normal orophraynx, mucous membranes moist, TM's normal bilaterally, normal external ear exam - Neck Neck exam: Present: normal inspection, full ROM - Respiratory Respiratory exam: Present: normal lung sounds bilaterally. Absent: respiratory distress, wheezes, rales, rhonchi, chest wall tenderness, accessory muscle use, decreased breath sounds, prolonged expiratory - Cardiovascular Cardiovascular Exam: Present: regular rate, normal rhythm, normal heart sounds. Absent: systolic murmur, diastolic murmur, rubs, gallop - GI/Abdominal GI/Abdominal exam: Present: soft, normal bowel sounds. Absent: tenderness, guarding, rebound, hyperactive bowel sounds, hypoactive bowel sounds, mass - Extremities Exam Extremities exam: Present: normal inspection, full ROM, normal capillary refill - Back Exam Back exam: Present: normal inspection, full ROM. Absent: tenderness, CVA tenderness (R), CVA tenderness (L), muscle spasm, paraspinal tenderness, vertebral tenderness - Neurological Exam Neurological exam: Present: alert, oriented X3, CN II-XII intact, normal gait, reflexes normal - Psychiatric Psychiatric exam: Present: normal affect, normal mood, anxious. Absent: homicidal ideation, suicidal ideation - Skin Skin exam: Present: warm, dry, intact, normal color. Absent: rash ED Course Vital Signs 01/23/20 03:40 Pulse Rate 87 Respiratory 17 Rate Blood Pressure 157/83 [Right] O2 Sat by Pulse 98 Oximetry ED Medical Decision Making - Lab Data Result diagrams: 01/23/20 01:38 01/23/20 01:38 - Medical Decision Making This is a 50-year-old -Peruvian male with a history of paranoid schizophrenia, bipolar disorder, hypertension, vwm-gwbpill-oilyihfuq diabetes and chronic bilateral lower extremity lymphedema who presents to the ED with complaint of acute onset persistent intermittent diffuse abdominal pain for the last 8 hours. Patient states that he has not eaten food for 8 hours. In the ED, patient is alert and oriented x3 and is not in distress. Patient walking ar ound the ED looking for microwave to warm his feet. Lab test results were reviewed and are all nonactionable. Patient was discharged from the ED and advised to follow-up with his primary care physician in 5 to 7 days for reevaluation. Patient was advised to return to the ED immediately if symptoms get worse. - Differential Diagnosis GERD; Gastroenteritis; Constipation; UTI; Kidney stones; muscle spasm Critical care attestation.: If time is entered above; I have spent that time in minutes in the direct care of this critically ill patient, excluding procedure time. ED Disposition Clinical Impression: Abdominal pain Qualifiers: Abdominal location: generalized Qualified Code(s): R10.84 - Generalized abdominal pain Disposition: -01 TO HOME OR SELFCARE Is pt being admited?: No Does the pt Need Aspirin: No Condition: Stable Instructions: Abdominal Pain (ED) Additional Instructions: All lab test results are unremarkable with no acute abnormalities. Follow-up with your primary care physician in 7 to 10 days for reevaluation. Return to the ED immediately if symptoms get worse. Referrals: [facility] [Outside] - 3-5 Days Time of Disposition: 03:28 Print Language: ARABIC
[2020-01-23 03:46] LABS: Basophils % (Manual) 0 % (0.0-1.8); Eosinophils % (Manual) 0 % (0.0-4.3); Total Cells Counted 100
[2020-01-23 03:47] LABS: Burr Cells Rare; Crenated RBC Few; Ovalocytes Rare; Platelet Estimate Consistent w Auto
[2020-01-23 04:43] VITALS: BP 157/83
== END 2020-01-23 03:40 | disposition home or self-care (01) ==
LOC: ED 00:16
DX: R10.84 Generalized abdominal pain (principal); I10 Essential (primary) hypertension; E11.9 Type 2 diabetes mellitus without complications; F20.9 Schizophrenia, unspecified; F31.9 Bipolar disorder, unspecified; F17.200 Nicotine dependence, unspecified, uncomplicated; Z98.890 Other specified postprocedural states; Z79.1 Long term (current) use of non-steroidal anti-inflammatories (NSAID); Z79.899 Other long term (current) drug therapy; Z88.0 Allergy status to penicillin; Z91.018 Allergy to other foods
CPT/HCPCS: 36415; 80053; 85007; 85025

== ENCOUNTER 2020-01-24 22:51 | Emergency (ER) | payer MEDICAID ==
--- NOTE | 2020-01-25 01:10 | Emergency Department Report ---
ED General Adult HPI - General Chief complaint: Psych Stated complaint: AURE EVAL Time Seen by Provider: 01/25/20 01:07 Source: patient Mode of arrival: Ambulatory Limitations: No Limitations - History of Present Illness Initial comments: The patient presents to the emergency department with a chief complaint of suicidal ideations. Patient states he is homeless and has felt depressed recently. Patient denies a suicidal plan. Patient denies auditory visual hallucinations. -: unknown Severity scale (0 -10): 0 Consistency: constant Improves with: none Worsens with: none Associated Symptoms: denies other symptoms Treatments Prior to Arrival: none - Related Data Previous Rx's Medication Instructions Recorded Last Taken Type Ibuprofen [Motrin] 800 mg PO Q8HR PRN #30 tablet 04/26/19 Unknown Rx Mupirocin [Bactroban 2% OINT] 1 applic TP Q8H #1 tube 04/26/19 Unknown Rx Sulfamethoxazole/Trimethoprim 1 each PO Q12H #20 tablet 04/26/19 Unknown Rx [Bactrim DS TAB] traMADoL [Ultram] 50 mg PO Q6HR PRN #12 tablet 04/26/19 Unknown Rx Allergies Allergy/AdvReac Type Severity Reaction Status Date / Time Penicillins Allergy Unknown Verified 07/17/19 13:09 ED Review of Systems ROS: Stated complaint: MH EVAL Other details as noted in HPI Comment: All other systems reviewed and negative Constitutional: denies: chills, fever Eyes: denies: eye pain, eye discharge, vision change ENT: denies: ear pain, throat pain Respiratory: denies: cough, shortness of breath, wheezing Cardiovascular: denies: chest pain, palpitations Endocrine: no symptoms reported Gastrointestinal: denies: abdominal pain, nausea, diarrhea Genitourinary: denies: urgency, dysuria Musculoskeletal: denies: back pain, joint swelling, arthralgia Skin: denies: rash, lesions Neurological: denies: headache, weakness, paresthesias Psychiatric: suicidal thoughts. denies: anxiety, depression Hematological/Lymphatic: denies: easy bleeding, easy bruising ED Past Medical Hx - Past Medical History Previous Medical History?: Yes Hx Hypertension: Yes Hx Diabetes: Yes (Borderline) Hx Psychiatric Treatment: Yes (Schizophrenia, bipolar disorder) Additional medical history: Lymphedema - Surgical History Past Surgical History?: Yes Additional Surgical History: leg - Social History Smoking Status: Never Smoker Substance Use Type: None - Medications Home Medications: Home Medications Medication Instructions Recorded Confirmed Last Taken Type Ibuprofen [Motrin] 800 mg PO Q8HR PRN #30 tablet 04/26/19 Unknown Rx Mupirocin [Bactroban 2% OINT] 1 applic TP Q8H #1 tube 04/26/19 Unknown Rx Sulfamethoxazole/Trimethoprim 1 each PO Q12H #20 tablet 04/26/19 Unknown Rx [Bactrim DS TAB] traMADoL [Ultram] 50 mg PO Q6HR PRN #12 tablet 04/26/19 Unknown Rx ED Physical Exam - General Limitations: No Limitations General appearance: alert, in no apparent distress - Head Head exam: Present: atraumatic, normocephalic - Eye Eye exam: Present: normal appearance, PERRL, EOMI - ENT ENT exam: Present: mucous membranes moist - Neck Neck exam: Present: normal inspection - Respiratory Respiratory exam: Present: normal lung sounds bilaterally. Absent: respiratory distress - Cardiovascular Cardiovascular Exam: Present: regular rate, normal rhythm. Absent: systolic murmur, diastolic murmur, rubs, gallop - GI/Abdominal GI/Abdominal exam: Present: soft, normal bowel sounds. Absent: distended, tenderness - Rectal Rectal exam: Present: deferred - Extremities Exam Extremities exam: Present: normal inspection - Back Exam Back exam: Present: normal inspection - Neurological Exam Neurological exam: Present: alert, oriented X3, CN II-XII intact. Absent: motor sensory deficit - Psychiatric Psychiatric exam: Present: normal affect, normal mood - Skin Skin exam: Present: warm, dry, intact, normal color. Absent: rash ED Course Vital Signs 01/25/20 00:25 Temperature 98 F Pulse Rate 102 H Respiratory 18 Rate Blood Pressure 145/75 O2 Sat by Pulse 98 Oximetry ED Medical Decision Making - Lab Data Lab Results 01/25/20 Range/Units 01:26 Urine Color [place] (Yellow) Urine Turbidity Clear (Clear) Urine pH 5.0 (5.0-7.0) Ur Specific [place] 1.028 (1.003-1.030) Urine Protein <15 mg/dl (Negative) mg/dL Urine Glucose (UA) Neg (Negative) mg/dL Urine Ketones Neg (Negative) mg/dL Urine Blood Neg (Negative) Urine Nitrite Neg (Negative) Urine Bilirubin Neg (Negative) Urine Urobilinogen < 2.0 (<2.0) mg/dL Ur Leukocyte Esterase Neg (Negative) Urine WBC (Auto) 1.0 (0.0-6.0) /HPF Urine RBC (Auto) 3.0 (0.0-6.0) /HPF U Epithel Cells (Auto) 1.0 (0-13.0) /HPF Urine Mucus 1+ /HPF - Medical Decision Making medically cleared awaiting mental health evaluation and possible placement Critical care attestation.: If time is entered above; I have spent that time in minutes in the direct care of this critically ill patient, excluding procedure time. ED Disposition Clinical Impression: Suicidal ideation Disposition: DC/TX-65 PS[facility] HOSP/PSY UNIT Is pt being admited?: No Does the pt Need Aspirin: No Condition: Stable Referrals: PRIMARY CARE, [Primary Care Provider] - 3-5 Days
[2020-01-25 01:57] LABS: Bilirubin,Urine NEG (Negative); Blood,Urine NEG (Negative); Color,Urine Amber (Yellow); Mucus,Urine 1+ /HPF; Protein,Urine <15 mg/dL mg/dL (Negative); Urobilinogen,Urine < 2.0 mg/dL (<2.0)
[2020-01-25 02:18] LABS: Basophils % (Auto) 0.4 % (0.0-1.8); Eosinophils # (Auto) 0.1 K/mm3 (0.0-0.4); Eosinophils % (Auto) 1.8 % (0.0-4.3); Hematocrit 36.8 % (35.5-45.6); Hemoglobin 12.1 gm/dl (11.8-15.2); Lymphocytes # (Auto) 1.6 K/mm3 (1.2-5.4); Mean Corpuscular HGB Conc 33 % (32-34); Mean Corpuscular Volume 79 fl (84-94); Monocytes # (Auto) 0.6 K/mm3 (0.0-0.8); Monocytes % (Auto) 8.6 % (0.0-7.3); Platelet Count 188 K/mm3 (140-440); Red Blood Count 4.65 M/mm3 (3.65-5.03); Red Cell Distribution Width 18.6 % (13.2-15.2)
[2020-01-25 02:21] LABS: Amphetamine Screen,Urine PRESUMPTIVE NEGATIVE; Benzodiazepines Screen,Urine PRESUMPTIVE NEGATIVE; Cannabinoid Screen,Urine PRESUMPTIVE NEGATIVE; Cocaine Screen,Urine PRESUMPTIVE NEGATIVE; Methadone Screen,Urine PRESUMPTIVE NEGATIVE; Opiate Screen,Urine PRESUMPTIVE NEGATIVE
[2020-01-25] MEDS ORDERED: ACETAMINOPHEN 500 MG TAB ONE (02:23)
[2020-01-25] MEDS: ACETAMINOPHEN 500 MG TAB PO ONE ×2 (02:30→02:35)
[2020-01-25 02:33] LABS: Alanine Aminotransferase 10 units/L (7-56); Albumin 4.2 g/dL (3.9-5); Blood Urea Nitrogen 13 mg/dL (9-20); Calcium 9.8 mg/dL (8.4-10.2); Hemolysis Index 7
[2020-01-25 02:36] LABS: BUN/Creatinine Ratio 19
[2020-01-25 07:56] VITALS: BP 146/98
== END 2020-01-25 15:56 | disposition home or self-care (01) ==
LOC: ED 22:51 → EEVIPCON 22:51 → ED 01-25 15:56
DX: R45.851 Suicidal ideations (principal); F32.9 Major depressive disorder, single episode, unspecified; I10 Essential (primary) hypertension; E11.9 Type 2 diabetes mellitus without complications; F20.9 Schizophrenia, unspecified; Z98.890 Other specified postprocedural states; Z79.1 Long term (current) use of non-steroidal anti-inflammatories (NSAID); Z79.899 Other long term (current) drug therapy; Z88.0 Allergy status to penicillin; Z91.012 Allergy to eggs; Z91.018 Allergy to other foods
CPT/HCPCS: 36415; 80053; 80307; 80320; 81001; 85025; G0480

== ENCOUNTER 2020-01-29 05:57 | Emergency (ER) | payer MEDICAID ==
[2020-01-29 06:05] VITALS: BP 119/71
[2020-01-29 09:18] LABS: Basophils % (Auto) 0.6 % (0.0-1.8); Eosinophils # (Auto) 0.1 K/mm3 (0.0-0.4); Eosinophils % (Auto) 2.4 % (0.0-4.3); Hematocrit 36.5 % (35.5-45.6); Lymphocytes % (Auto) 17.3 % (13.4-35.0); Mean Corpuscular HGB Conc 33 % (32-34); Mean Corpuscular Volume 78 fl (84-94); Monocytes # (Auto) 0.5 K/mm3 (0.0-0.8); Monocytes % (Auto) 8.6 % (0.0-7.3); Platelet Count 198 K/mm3 (140-440); Red Blood Count 4.65 M/mm3 (3.65-5.03); Red Cell Distribution Width 18.3 % (13.2-15.2)
[2020-01-29 09:26] LABS: Alanine Aminotransferase 11 units/L (7-56); Albumin 4.2 g/dL (3.9-5); Blood Urea Nitrogen 13 mg/dL (9-20); Calcium 9.5 mg/dL (8.4-10.2); Hemolysis Index 1
[2020-01-29 09:28] LABS: BUN/Creatinine Ratio 19
--- NOTE | 2020-01-29 10:10 | Emergency Department Report ---
ED General Adult HPI - General Chief complaint: Abdominal Pain Stated complaint: ABD PAIN Time Seen by Provider: 01/29/20 07:58 Source: patient Mode of arrival: Ambulatory Limitations: No Limitations - History of Present Illness Initial comments: 50-year-old -[place] male patient with history of paranoid schizophrenia, bipolar disorder, hypertension, [id number] diabetes and chronic bilateral lower extremity lymphedema presents with complaints of left-sided abdominal pain starting this morning. Patient is a poor historian. He is unable to describe the pain or give severity by number. He denies any diarrhea, vomiting, or fever. He also denies any history of diverticular disease, hematochezia, or melena. - Related Data Previous Rx's Medication Instructions Recorded Last Taken Type Ibuprofen [Motrin] 800 mg PO Q8HR PRN #30 tablet 04/26/19 Unknown Rx Mupirocin [Bactroban 2% OINT] 1 applic TP Q8H #1 tube 04/26/19 Unknown Rx Sulfamethoxazole/Trimethoprim 1 each PO Q12H #20 tablet 04/26/19 Unknown Rx [Bactrim DS TAB] traMADoL [Ultram] 50 mg PO Q6HR PRN #12 tablet 04/26/19 Unknown Rx Allergies Allergy/AdvReac Type Severity Reaction Status Date / Time broccoli Allergy Unknown Verified 01/25/20 02:33 egg Allergy Unknown Verified 01/25/20 02:33 Penicillins Allergy Unknown Verified 07/17/19 13:09 pork derived (porcine) Allergy Unknown Verified 01/25/20 02:33 turkey Allergy Unknown Verified 01/25/20 02:33 chicken derived AdvReac Unknown Verified 01/25/20 02:33 ED Review of Systems ROS: Stated complaint: ABD PAIN Other details as noted in HPI Constitutional: denies: chills, diaphoresis, fever, malaise, weakness Respiratory: denies: shortness of breath Cardiovascular: denies: chest pain Gastrointestinal: abdominal pain. denies: nausea, vomiting, diarrhea, constip ation, hematemesis, melena, hematochezia Skin: denies: change in color Neurological: denies: headache, numbness, paresthesias ED Past Medical Hx - Past Medical History Previous Medical History?: Yes Hx Hypertension: Yes Hx Diabetes: Yes (Borderline) Hx Psychiatric Treatment: Yes (Schizophrenia, bipolar disorder) Additional medical history: Lymphedema - Surgical History Past Surgical History?: Yes Additional Surgical History: leg - Social History Smoking Status: Current Every Day Smoker - Medications Home Medications: Home Medications Medication Instructions Recorded Confirmed Last Taken Type Ibuprofen [Motrin] 800 mg PO Q8HR PRN #30 tablet 04/26/19 Unknown Rx Mupirocin [Bactroban 2% OINT] 1 applic TP Q8H #1 tube 04/26/19 Unknown Rx Sulfamethoxazole/Trimethoprim 1 each PO Q12H #20 tablet 04/26/19 Unknown Rx [Bactrim DS TAB] traMADoL [Ultram] 50 mg PO Q6HR PRN #12 tablet 04/26/19 Unknown Rx ED Physical Exam - General Limitations: No Limitations General appearance: alert, in no apparent distress, obese - Head Head exam: Present: atraumatic, normocephalic - Eye Eye exam: Present: normal appearance. Absent: scleral icterus - Neck Neck exam: Present: normal inspection - Respiratory Respiratory exam: Present: normal lung sounds bilaterally. Absent: respiratory distress - Cardiovascular Cardiovascular Exam: Present: regular rate, normal rhythm - GI/Abdominal GI/Abdominal exam: Present: soft, normal bowel sounds. Absent: distended, tenderness, guarding, rebound, rigid - Extremities Exam Extremities exam: Present: full ROM - Back Exam Back exam: Present: normal inspection. Absent: CVA tenderness (R), CVA tenderness (L) - Neurological Exam Neurological exam: Present: alert, oriented X3, normal gait - Psychiatric Psychiatric exam: Present: normal affect, normal mood - Skin Skin exam: Present: warm, dry, intact. Absent: rash, cyanosis, diaphoretic ED Course Vital Signs 01/29/20 06:04 Temperature 98.0 F Pulse Rate 89 Respiratory 17 Rate Blood Pressure 119/71 O2 Sat by Pulse 99 Oximetry ED Medical Decision Making - Lab Data Result diagrams: 01/29/20 08:29 01/29/20 08:29 Lab Results 01/29/20 01/29/20 01/29/20 Range/Units 08:29 08:29 09:58 WBC 6.0 (4.5-11.0) K/mm3 RBC 4.65 (3.65-5.03) M/mm3 Hgb 12.0 (11.8-15.2) gm/dl Hct 36.5 (35.5-45.6) % MCV 78 L (84-94) fl MCH 26 L (28-32) pg MCHC 33 (32-34) % RDW 18.3 H (13.2-15.2) % Plt Count 198 (140-440) K/mm3 Lymph % (Auto) 17.3 (13.4-35.0) % [place] % (Auto) 8.6 H (0.0-7.3) % Eos % (Auto) 2.4 (0.0-4.3) % Baso % (Auto) 0.6 (0.0-1.8) % Lymph # (Auto) 1.0 L (1.2-5.4) K/mm3 [place] # (Auto) 0.5 (0.0-0.8) K/mm3 Eos # (Auto) 0.1 (0.0-0.4) K/mm3 Baso # (Auto) 0.0 (0.0-0.1) K/mm3 Seg Neutrophils % 71.1 H (40.0-70.0) % Seg Neutrophils # 4.3 (1.8-7.7) K/mm3 Sodium 135 L (137-145) mmol/L Potassium 3.8 (3.6-5.0) mmol/L Chloride 97.9 L (98-107) mmol/L Carbon Dioxide 28 (22-30) mmol/L Anion Gap 13 mmol/L BUN 13 (9-20) mg/dL Creatinine 0.7 L (0.8-1.3) mg/dL Estimated GFR > 60 ml/min BUN/Creatinine Ratio 19 % Glucose 91 (75-100) mg/dL Calcium 9.5 (8.4-10.2) mg/dL Total Bilirubin 0.40 (0.1-1.2) mg/dL AST 20 (5-40) units/L ALT 11 (7-56) units/L Alkaline Phosphatase 92 (35-129) units/L Total Protein 7.8 (6.3-8.2) g/dL Albumin 4.2 (3.9-5) g/dL Albumin/Globulin Ratio 1.2 % Lipase 14 (13-60) units/L Urine Color Straw (Yellow) Urine Turbidity Clear (Clear) Urine pH 7.0 (5.0-7.0) Ur Specific [place] 1.005 (1.003-1.030) Urine Protein <15 mg/dl (Negative) mg/dL Urine Glucose (UA) Neg (Negative) mg/dL Urine Ketones Neg (Negative) mg/dL Urine Blood Neg (Negative) Urine Nitrite Neg (Negative) Urine Bilirubin Neg (Negative) Urine Urobilinogen < 2.0 (<2.0) mg/dL Ur Leukocyte Esterase Neg (Negative) Urine WBC (Auto) < 1.0 (0.0-6.0) /HPF Urine RBC (Auto) 2.0 (0.0-6.0) /HPF Urine Bacteria (Auto) 1+ (Negative) /HPF - Medical Decision Making 50-year-old -[place] male patient with history of paranoid schizophrenia, bipolar disorder, hypertension, [id number] diabetes and chronic bilateral lower extremity lymphedema presents with complaints of left-sided abdominal pain starting this morning. Patient is a poor historian. He is unable to describe the pain or give severity by number. He denies any diarrhea, vomiting, or fever. He also denies any history of diverticular disease, hematochezia, or melena. On exam, no significant abdominal tenderness, guarding, or rebound is noted. CBC, CMP, lipase, UA are without acute findings. His vitals are normal and he is nontoxic-appearing. Recommend follow-up with primary care provider within 3 to 5 days. Strict return precautions were discussed in detail with patient who states understanding peer Critical care attestation.: If time is entered above; I have spent that time in minutes in the direct care of this critically ill patient, excluding procedure time. ED Disposition Clinical Impression: Generalized abdominal pain Disposition: DC-01 TO HOME OR SELFCARE Is pt being admited?: No Condition: Stable Instructions: Abdominal Pain, Adult, [id number] Referrals: YONNY SHIRLEY MD [Primary Care Provider] - 3-5 Days
[2020-01-29 10:43] LABS: Bacteria,Urine 1+ /HPF (Negative); Bilirubin,Urine NEG (Negative); Blood,Urine NEG (Negative); Color,Urine Straw (Yellow); Protein,Urine <15 mg/dL mg/dL (Negative); Urobilinogen,Urine < 2.0 mg/dL (<2.0); WBC,Urine < 1.0 /HPF (0.0-6.0)
== END 2020-01-29 12:22 | disposition home or self-care (01) ==
LOC: ED 05:57
DX: R10.84 Generalized abdominal pain (principal); I10 Essential (primary) hypertension; E11.9 Type 2 diabetes mellitus without complications; F25.0 Schizoaffective disorder, bipolar type; F17.200 Nicotine dependence, unspecified, uncomplicated; Z79.899 Other long term (current) drug therapy; Z88.0 Allergy status to penicillin; Z91.012 Allergy to eggs; Z91.018 Allergy to other foods; Z98.890 Other specified postprocedural states
CPT/HCPCS: 36415; 80053; 81001; 83690; 85025; 99283

== ENCOUNTER 2020-01-29 20:25 | Emergency (ER) | payer MEDICAID | END 2020-01-29 21:58 | disposition left against medical advice (07) | LOC: ED 20:25 | DX: M79.10 Myalgia, unspecified site (principal); Z53.21 Procedure and treatment not carried out due to patient leaving prior to being seen by health care provider ==

== ENCOUNTER 2020-01-31 05:14 | Emergency (ER) | payer MEDICAID ==
[2020-01-31 08:42] LABS: Basophils % (Auto) 0.4 % (0.0-1.8); Eosinophils # (Auto) 0.1 K/mm3 (0.0-0.4); Eosinophils % (Auto) 0.9 % (0.0-4.3); Hemoglobin 12.8 gm/dl (11.8-15.2); Lymphocytes # (Auto) 0.9 K/mm3 (1.2-5.4); Lymphocytes % (Auto) 12.1 % (13.4-35.0); Mean Corpuscular HGB Conc 33 % (32-34); Mean Corpuscular Volume 80 fl (84-94); Monocytes # (Auto) 0.8 K/mm3 (0.0-0.8); Monocytes % (Auto) 10.1 % (0.0-7.3); Platelet Count 210 K/mm3 (140-440); Red Blood Count 4.88 M/mm3 (3.65-5.03); Red Cell Distribution Width 17.7 % (13.2-15.2)
[2020-01-31 08:47] LABS: Blood Urea Nitrogen 12 mg/dL (9-20); Calcium 9.8 mg/dL (8.4-10.2); Hemolysis Index 13
[2020-01-31 09:13] LABS: BUN/Creatinine Ratio 17
--- NOTE | 2020-01-31 14:57 | XRay Report ---
RIGHT RIBS 4 VIEWS INDICATION / CLINICAL INFORMATION: right sided rib pain. COMPARISON: None available. FINDINGS: RIBS: There is an acute appearing nondisplaced fracture of the right lateral ninth rib. Multiple old healed fractures also noted. LUNGS: Small right pleural effusion with bibasilar atelectasis. No pneumothorax. Signer Name: Giuseppe Porter MD Signed: 01/31/2020 2:53 PM Workstation Name: [id number]
--- NOTE | 2020-01-31 15:47 | Emergency Department Report ---
HPI - General Chief Complaint: Psych Time Seen by Provider: 01/31/20 13:38 - HPI HPI: This is a 50-year-old -[place] male presents to the emergency department with 2 complaints. First, the patient is here for a mental health evaluation. The patient is having suicidal ideations and says that he would attempt to hurt himself by getting into an altercation with a police academy instructor in the hopes that they shoot and kill him. He says that he has financial issues and feels like "I do not have anything to live for." The patient has a history of bipolar disorder and schizophrenia. He denies any hallucinations. He is not exhibiting any hallucinations to me but through triage the patient said "I was cooking a meal for friends yesterday and an animal went in my rectum." Secondly, the patient says that he fell on the bus yesterday and hit the right side of his chest on the seat. Since that time he has been having some right-sided rib pain. He has not taken anything for his symptoms. He has a history of hypertension and borderline diabetes. ED Past Medical Hx - Past Medical History Previous Medical History?: Yes Hx Hypertension: Yes Hx Diabetes: Yes (Borderline) Hx Psychiatric Treatment: Yes (Schizophrenia, bipolar disorder) Additional medical history: Lymphedema - Surgical History Past Surgical History?: Yes Additional Surgical History: leg - Social History Smoking Status: Current Every Day Smoker - Medications Home Medications: Home Medications Medication Instructions Recorded Confirmed Last Taken Type Ibuprofen [Motrin] 800 mg PO Q8HR PRN #30 tablet 04/26/19 Unknown Rx Mupirocin [Bactroban 2% OINT] 1 applic TP Q8H #1 tube 04/26/19 Unknown Rx Sulfamethoxazole/Trimethoprim 1 each PO Q12H #20 tablet 04/26/19 Unknown Rx [Bactrim DS TAB] traMADoL [Ultram] 50 mg PO Q6HR PRN #12 tablet 04/26/19 Unknown Rx ED Review of Systems ROS: Stated complaint: ABD PAIN Other details as noted in HPI Comment: All other systems reviewed and negative Constitutional: denies: chills, fever Eyes: denies: eye pain, vision change ENT: denies: ear pain, throat pain Respiratory: denies: cough, shortness of breath Cardiovascular: denies: chest pain, edema Gastrointestinal: denies: abdominal pain, vomiting Genitourinary: denies: dysuria, discharge Musculoskeletal: other (right rib pain). denies: back pain Skin: denies: rash, lesions Neurological: denies: headache, weakness Psychiatric: depression, suicidal thoughts Physical Exam - Physical Exam Vital Signs: Vital Signs 01/31/20 01/31/20 01/31/20 07:36 13:30 13:32 Temperature 97.4 F L 98.6 F Pulse Rate 79 83 Respiratory 14 20 20 Rate Blood Pressure 145/102 Blood Pressure 144/81 [Right] O2 Sat by Pulse 100 98 99 Oximetry Physical Exam: GENERAL: The patient is well-developed well-nourished. HENT: Normocephalic. Atraumatic. Patient has moist mucous membranes. EYES: Extraocular motions are intact. NECK: Supple. Trachea is midline. CHEST/LUNGS: Clear to auscultation. There is no respiratory distress noted. Right-sided chest wall pain to palpation. No crepitus or deformity. HEART/CARDIOVASCULAR: Regular. There is no tachycardia. There is no murmur. ABDOMEN: Abdomen is soft, nontender. Patient has normal bowel sounds. SKIN: Skin is warm and dry. NEURO: The patient is awake, alert, and oriented. The patient is cooperative. MUSCULOSKELETAL: There is no tenderness or deformity. There is no limitation range of motion. ED Course Vital Signs 01/31/20 01/31/20 01/31/20 07:36 13:30 13:32 Temperature 97.4 F L 98.6 F Pulse Rate 79 83 Respiratory 14 20 20 Rate Blood Pressure 145/102 Blood Pressure 144/81 [Right] O2 Sat by Pulse 100 98 99 Oximetry - Reevaluation(s) Reevaluation #1: 01/31/20 15:48 Lab Results 01/31/20 01/31/20 01/31/20 Range/Units 08:05 08:05 08:05 WBC (4.5-11.0) K/mm3 RBC (3.65-5.03) M/mm3 Hgb (11.8-15.2) gm/dl Hct (35.5-45.6) % MCV (84-94) fl MCH (28-32) pg MCHC (32-34) % RDW (13.2-15.2) % Plt Count (140-440) K/mm3 Lymph % (Auto) (13.4-35.0) % [place] % (Auto) (0.0-7.3) % Eos % (Auto) (0.0-4.3) % Baso % (Auto) (0.0-1.8) % Lymph # (Auto) (1.2-5.4) K/mm3 [place] # (Auto) (0.0-0.8) K/mm3 Eos # (Auto) (0.0-0.4) K/mm3 Baso # (Auto) (0.0-0.1) K/mm3 Seg Neutrophils % (40.0-70.0) % Seg Neutrophils # (1.8-7.7) K/mm3 Sodium 137 (137-145) mmol/L Potassium 4.0 (3.6-5.0) mmol/L Chloride 99.3 (98-107) mmol/L Carbon Dioxide 27 (22-30) mmol/L Anion Gap 15 mmol/L BUN 12 (9-20) mg/dL Creatinine 0.7 L (0.8-1.3) mg/dL Estimated GFR > 60 ml/min BUN/Creatinine Ratio 17 % Glucose 93 (75-100) mg/dL Calcium 9.8 (8.4-10.2) mg/dL Salicylates < 0.3 L (2.8-20.0) mg/dL Acetaminophen 5.0 L (10.0-30.0) ug/mL Plasma/Serum Alcohol (0-0.07) % 01/31/20 01/31/20 Range/Units 08:05 08:05 WBC 7.8 (4.5-11.0) K/mm3 RBC 4.88 (3.65-5.03) M/mm3 Hgb 12.8 (11.8-15.2) gm/dl Hct 39.0 (35.5-45.6) % MCV 80 L (84-94) fl MCH 26 L (28-32) pg MCHC 33 (32-34) % RDW 17.7 H (13.2-15.2) % Plt Count 210 (140-440) K/mm3 Lymph % (Auto) 12.1 L (13.4-35.0) % [place] % (Auto) 10.1 H (0.0-7.3) % Eos % (Auto) 0.9 (0.0-4.3) % Baso % (Auto) 0.4 (0.0-1.8) % Lymph # (Auto) 0.9 L (1.2-5.4) K/mm3 [place] # (Auto) 0.8 (0.0-0.8) K/mm3 Eos # (Auto) 0.1 (0.0-0.4) K/mm3 Baso # (Auto) 0.0 (0.0-0.1) K/mm3 Seg Neutrophils % 76.5 H (40.0-70.0) % Seg Neutrophils # 5.9 (1.8-7.7) K/mm3 Sodium (137-145) mmol/L Potassium (3.6-5.0) mmol/L Chloride (98-107) mmol/L Carbon Dioxide (22-30) mmol/L Anion Gap mmol/L BUN (9-20) mg/dL Creatinine (0.8-1.3) mg/dL Estimated GFR ml/min BUN/Creatinine Ratio % Glucose (75-100) mg/dL Calcium (8.4-10.2) mg/dL Salicylates (2.8-20.0) mg/dL Acetaminophen (10.0-30.0) ug/mL Plasma/Serum Alcohol < 0.01 (0-0.07) % Reevaluation #2: 01/31/20 15:48 Vital Signs 01/31/20 01/31/20 01/31/20 07:36 13:30 13:32 Temperature 97.4 F L 98.6 F Pulse Rate 79 83 Respiratory 14 20 20 Rate Blood Pressure 145/102 Blood Pressure 144/81 [Right] O2 Sat by Pulse 100 98 99 Oximetry ED Medical Decision Making - Lab Data Result diagrams: 01/31/20 08:05 01/31/20 08:05 - Radiology Data Radiology results: report reviewed RIGHT RIBS 4 VIEWS INDICATION / CLINICAL INFORMATION: right sided rib pain. COMPARISON: None available. FINDINGS: RIBS: There is an acute appearing nondisplaced fracture of the right lateral ninth rib. Multiple old healed fractures also noted. LUNGS: Small right pleural effusion with bibasilar atelectasis. No pneumothorax. - Medical Decision Making Regarding the patient's right-sided rib pain and fall on the bus, a chest x-ray was done that shows an acute appearing nondisplaced right-sided ninth rib fr acture. No pneumothorax. There might be a small pleural effusion and some atelectasis. Patient does not have any tachypnea, hypoxia or any signs of respiratory distress. The patient will be given a referral for an orthopedist and can use Tylenol and/or ibuprofen for pain control. We will discussed incentive spirometry. The patient does express depression and suicidal ideations with a plan to by instigating a police academy instructor to shoot him. For this reason the patient has been made a 1013. We are still waiting for a urine sample for urinalysis and UDS. The rest of the labs are unremarkable including CBC, metabolic panel and blood alcohol level. Vital signs have been reassuring throughout his ED course thus far. He appears medically cleared for psychiatric placement. Critical Care Time: No Critical care attestation.: If time is entered above; I have spent that time in minutes in the direct care of this critically ill patient, excluding procedure time. ED Disposition Clinical Impression: Suicidal ideation Rib fracture Qualifiers: Encounter type: initial encounter Rib fracture type: single rib Fracture type: closed Laterality: right Qualified Code(s): S22.31XA - Fracture of one rib, right side, initial encounter for closed fracture Disposition: DC/TX-65 PSY HOSP/PSY UNIT Is pt being admited?: No Condition: Stable Instructions: Rib Fracture, Suicidal Feelings: How to Help Yourself Additional Instructions: Please follow-up with an orthopedist regarding your rib fracture once you are done with the psychiatric facilities. I have given you a referral for a local orthopedist, Dr. Samuel. Referrals: ESAU LUIS MD [Primary Care Provider] - 3-5 Days SHANI SAMUEL MD [Staff Physician] - 3-5 Days Time of Disposition: 15:50
[2020-02-01 03:58] LABS: Bacteria,Urine 1+ /HPF (Negative); Bilirubin,Urine NEG (Negative); Blood,Urine NEG (Negative); Color,Urine Yellow (Yellow); Protein,Urine <15 mg/dL mg/dL (Negative); Urobilinogen,Urine < 2.0 mg/dL (<2.0); WBC,Urine < 1.0 /HPF (0.0-6.0)
[2020-02-01 04:35] LABS: Amphetamine Screen,Urine PRESUMPTIVE NEGATIVE; Benzodiazepines Screen,Urine PRESUMPTIVE NEGATIVE; Cannabinoid Screen,Urine PRESUMPTIVE NEGATIVE; Cocaine Screen,Urine PRESUMPTIVE NEGATIVE; Methadone Screen,Urine PRESUMPTIVE NEGATIVE; Opiate Screen,Urine PRESUMPTIVE NEGATIVE
--- NOTE | 2020-02-01 10:58 | Consultation ---
History of Present Illness - Reason for Consult Consult date: 02/01/20 Reason for consult: MHE Requesting physician: DINESH ROCHE - History of Present Psychiatric Illness Per ED Provider: This is a 50-year-old -[place] male presents to the emergency department with 2 complaints. First, the patient is here for a mental health evaluation. The patient is having suicidal ideations and says that he would attempt to hurt himself by getting into an altercation with a police aide in the hopes that they shoot and kill him. He says that he has financial issues and feels like "I do not have anything to live for." The patient has a history of bipolar disorder and schizophrenia. He denies any hallucinations. He is not exhibiting any hallucinations to me but through triage the patient said "I was cooking a meal for friends yesterday and an animal went in my rectum." Secondly, the patient says that he fell on the bus yesterday and hit the right side of his chest on the seat. Since that time he has been having some right-sided rib pain. He has not taken anything for his symptoms. He has a history of hypertension and borderline diabetes. PSYCH HPI Patient is a 50-year-old currently homeless, single with children, unemployed currently on SSI income -[place] male with past psychiatric history of paranoid schizophrenia and past medical history of stasis edema with dermatitis of left lower extremity who presents to the ED with suicidal ideations and homicidal ideation with intention to strangle other people. Patient reported suicidal because of financial issues, current housing status, and not having a girlfriend. Denies auditory visual hallucination PAST PSYCHIATRIC HISTORY Diagnoses: Paranoid schizophrenia Suicide attempts or Self-harm behavior: None reported Prior psychiatric hospitalizations: Yes Substance Abuse history: Pain medication and marijuana Previous psychiatric medications tried: None reported Outpatient treatment: None reported PAST MEDICAL HISTORY: Stasis dermatitis and edema of left lower extremity Family Psychiatric History: None reported or documented SOCIAL HISTORY Marital Status: Single Living Arrangements: Homeless Employment Status: Unemployed Access to guns/weapons: None reported Education: High school History of Abuse: None reported Legal History: Yes REVIEW OF SYSTEMS Constitutional: Negative for weight loss ENT: Negative for stridor Respiratory: Negative for cough or hemoptysis All other systems reviewed and are negative MENTAL STATUS EXAMINATION General Appearance and Behavior: Age appropriate, fair hygiene, dishelved, poor eye contact, cooperative polite with questioning. Cooperation: Participating/engaged Psychomotor Behavior: psychomotor retardation Mood: depressed Affect and affective range: flat Thought Process: Illogical Thought Content: Illogical Speech: Normal volume, Regular rate and rhythm Intellectual Functioning: Average Suicidal Ideation: Suicidal Homicidal Ideation: Homicidal Impulse Control: Impaired Insight and Judgment: Impaired Memory: Normal Attention: Normal. Orientation: Alert, oriented Assessment and Plan - Psychiatric problem (1) Major depressive disorder with psychotic features Current Visit: Yes Status: Acute Treatment Plan Started on zoloft MEDICATIONS: Risks, benefits and alternatives of medications discussed with the patient, questions answered and consent obtained from patient. PSYCHOTHERAPY: Supportive psychotherapy provided MEDICAL: Per primary team DELIRIUM PRECAUTIONS: Please re-orient patient frequently, keep lights on during the day, and minimize benzodiazepines and opiates as these medications could worsen patient's confusion. 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 Please contact with any questions and/or concerns. Medications and Allergies Allergies Allergy/AdvReac Type Severity Reaction Status Date / Time broccoli Allergy Unknown Verified 01/25/20 02:33 egg Allergy Unknown Verified 01/25/20 02:33 Penicillins Allergy Unknown Verified 07/17/19 13:09 pork derived (porcine) Allergy Unknown Verified 01/25/20 02:33 turkey Allergy Unknown Verified 01/25/20 02:33 chicken derived AdvReac Unknown Verified 01/25/20 02:33 Home Medications Medication Instructions Recorded Confirmed Last Taken Type Ibuprofen [Motrin] 800 mg PO Q8HR PRN #30 tablet 04/26/19 Unknown Rx Mupirocin [Bactroban 2% OINT] 1 applic TP Q8H #1 tube 04/26/19 Unknown Rx Sulfamethoxazole/Trimethoprim 1 each PO Q12H #20 tablet 04/26/19 Unknown Rx [Bactrim DS TAB] traMADoL [Ultram] 50 mg PO Q6HR PRN #12 tablet 04/26/19 Unknown Rx Mental Status Exam - Vital signs Last Vital Signs Temp 97.3 F L 02/01/20 09:31 Pulse 77 02/01/20 09:31 Resp 17 02/01/20 09:31 BP 141/73 02/01/20 09:31 Pulse Ox 99 02/01/20 09:31 Results Result Diagrams: 01/31/20 08:05 01/31/20 08:05 Abnormal lab results 02/01/20 Range/Units 03:35 Urine pH 8.0 H (5.0-7.0) All other labs normal. Assessment and Plan - Psychiatric problem (1) Major depressive disorder with psychotic features Current Visit: Yes Status: Acute
[2020-02-01] MEDS: SERTRALINE 50 MG TAB PO SCH (12:42)
[2020-02-02] MEDS: SERTRALINE 50 MG TAB PO SCH (10:15)
--- NOTE | 2020-02-02 11:20 | Progress Note ---
Subjective - Reason for Consult Consult date: 02/02/20 Reason for consult: MHE Requesting physician: DINESH ROCHE - Chief Complaint Chief complaint: Psych Progress Patient seen this a.m. patient reported wants to get his BX letter from [employer] mostly social science studies textbooks, patient seen laughing hysterically and talking to self patient seems unkept has in bed wetting on himself in the room patient still endorses suicidal ideation and says he still hearing voices to hurt himself. REVIEW OF SYSTEMS Constitutional: Negative for weight loss ENT: Negative for stridor Respiratory: Negative for cough or hemoptysis All other systems reviewed and are negative MENTAL STATUS EXAMINATION General Appearance and Behavior: Age appropriate, fair hygiene, dishelved, poor eye contact, cooperative polite with questioning. Cooperation: Participating/engaged Psychomotor Behavior: psychomotor retardation Mood: depressed Affect and affective range: flat Thought Process: Illogical Thought Content: Illogical Speech: Normal volume, Regular rate and rhythm Intellectual Functioning: Average Suicidal Ideation: Suicidal Homicidal Ideation: Homicidal Impulse Control: Impaired Insight and Judgment: Impaired Memory: Normal Attention: Normal. Orientation: Alert, oriented Assessment and Plan - Psychiatric problem (1) Major depressive disorder with psychotic features Current Visit: Yes Status: Acute Treatment Plan Started on zoloft MEDICATIONS: Risks, benefits and alternatives of medications discussed with the patient, questions answered and consent obtained from patient. PSYCHOTHERAPY: Supportive psychotherapy provided MEDICAL: Per primary team DELIRIUM PRECAUTIONS: Please re-orient patient frequently, keep lights on during the day, and minimize benzodiazepines and opiates as these medications could worsen patient's confusion. 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 Please contact with any questions and/or concerns. Mental Status Exam - Vital signs Last Vital Signs Temp 97.6 F 02/02/20 01:00 Pulse 92 H 02/02/20 01:00 Resp 18 02/02/20 01:00 BP 113/62 02/02/20 01:00 Pulse Ox 96 02/02/20 01:00 Assessment and Plan - Patient Problems (1) Major depressive disorder with psychotic features Current Visit: Yes Status: Acute
[2020-02-02] MEDS: PALIPERIDONE ER 3 MG TAB PO SCH (13:15)
[2020-02-03 07:50] VITALS: BP 127/74
[2020-02-03] MEDS: PALIPERIDONE ER 3 MG TAB PO SCH (09:50)
[2020-02-03] MEDS: SERTRALINE 50 MG TAB PO SCH (09:51)
--- NOTE | 2020-02-03 10:03 | Progress Note ---
Subjective - Reason for Consult Consult date: 02/03/20 Reason for consult: MHE Requesting physician: DINESH ROCHE - Chief Complaint Chief complaint: Psych Progress Patient seen this a.m. patient reported he would like to stay here longer because he is expecting a check in mail from [employer] to be sent here and he can be discharged because once he has money he would be fine. Informed patient this is a hospital facility and not a ups office, also inform patient he needs to address is social issues by going to the state public health office. Patient self endorses senior care as priority hence why he wants to get the check. REVIEW OF SYSTEMS Constitutional: Negative for weight loss ENT: Negative for stridor Respiratory: Negative for cough or hemoptysis All other systems reviewed and are negative MENTAL STATUS EXAMINATION General Appearance and Behavior: Age appropriate, fair hygiene, dishelved, poor eye contact, cooperative polite with questioning. Cooperation: Participating/engaged Psychomotor Behavior: psychomotor retardation Mood: depressed Affect and affective range: flat Thought Process: Illogical, disorganized Thought Content: circumferential Speech: Normal volume, Regular rate and rhythm Intellectual Functioning: Average Suicidal Ideation: passive Homicidal Ideation: denies Impulse Control: Impaired Insight and Judgment: Impaired Memory: Normal Attention: Normal. Orientation: Alert, oriented Assessment and Plan - Psychiatric problem (1) Major depressive disorder with psychotic features Current Visit: Yes Status: Acute CASE WAS DISCUSSED WITH FABIAN NEWMAN, ATTENDING PHYSICIAN AND ALY WITH DISPOSITION. Patient has chronic mental health issues based on review of medical record and poor self care, no acute inpatient benefit can be seen at this time. Patient is homeless, no source of income and based on asssessment has impaired cognitive deficit unspecified. Patient also requesting to use hospital address as mail center and be allowed to stay longer until he gets a check. I will discharge patient with senior care resources and outpt follow and medications. Treatment Plan Started on zoloft MEDICATIONS: Risks, benefits and alternatives of medications discussed with the patient, questions answered and consent obtained from patient. PSYCHOTHERAPY: Supportive psychotherapy provided MEDICAL: Per primary team DELIRIUM PRECAUTIONS: Please re-orient patient frequently, keep lights on during the day, and minimize benzodiazepines and opiates as these medications could worsen patient's confusion. CORRECTIONS COUNSELOR: DISPOSITION: Do not Recommend acute inpatient psychiatric hospitalization at this time LEGAL STATUS: 1013 rescinded FOLLOW-UP: Will sign off Thank you for the consult. Please contact with any questions and/or concerns. Mental Status Exam - Vital signs Last Vital Signs Temp 97.3 F L 02/03/20 07:49 Pulse 87 02/03/20 07:49 Resp 20 02/03/20 07:49 BP 127/74 02/03/20 07:49 Pulse Ox 96 02/03/20 07:49 Assessment and Plan - Patient Problems (1) Major depressive disorder with psychotic features Status: Acute
--- NOTE | 2020-02-03 11:28 | Event Note ---
Date: 02/03/20 The patient was evaluated in the emergency department for symptoms described in the history of present illness. He/she was evaluated in the context of the global COVID-19 pandemic, which necessitated consideration that the patient might be at risk for infection with the virus that causes COVID-19. Institutional protocols and algorithms that pertain to the evaluation of patients at risk for COVID-19 are in a state of rapid change based on information released by regulatory bodies including the CDC and federal and state organizations. These policies and algorithms were followed during the patient's care in the emergency department. Please note that these policies, procedures and recommendations changed on a rapid basis. This patient was medically cleared on the first day that he presented. His 1013 has been discontinued by the psychiatry team. The psychiatry attending has specifically been informed of this case and has staffed the case with the physician nutrition services assistant of record. I was physically present on the day that the patient initially presented, and I am familiar with him. He has had an uneventful stay while here in the emergency room. He has a number of chronic nonmodifiable attributes, including homelessness, which would not be improved by a 1013 or involuntary psychiatric hold or hospitalization. He does not meet criteria for medical/hospital admission at this time. The psychiatric team will provide him with outpatient resources. Vital Signs 01/31/20 01/31/20 01/31/20 07:36 13:30 13:32 Temperature 97.4 F L 98.6 F Pulse Rate 79 83 Respiratory 14 20 20 Rate Blood Pressure 145/102 Blood Pressure 144/81 [Right] O2 Sat by Pulse 100 98 99 Oximetry 01/31/20 02/01/20 02/01/20 20:30 02:20 09:31 Temperature 97.4 F L 97.7 F 97.3 F L Pulse Rate 89 89 77 Respiratory 18 18 17 Rate Blood Pressure Blood Pressure 126/58 144/85 141/73 [Right] O2 Sat by Pulse 97 99 99 Oximetry 02/01/20 02/02/20 02/02/20 20:20 01:00 11:55 Temperature 97.7 F 97.6 F 98.3 F Pulse Rate 86 92 H 90 Respiratory 20 18 20 Rate Blood Pressure Blood Pressure 113/58 113/62 159/96 [Right] O2 Sat by Pulse 95 96 96 Oximetry 02/02/20 02/02/20 02/03/20 20:08 20:10 01:00 Temperature 97.3 F L 98.4 F Pulse Rate 80 95 H Respiratory 16 16 18 Rate Blood Pressure Blood Pressure 147/84 104/53 [Right] O2 Sat by Pulse 99 99 95 Oximetry 02/03/20 07:49 Temperature 97.3 F L Pulse Rate 87 Respiratory 20 Rate Blood Pressure Blood Pressure 127/74 [Right] O2 Sat by Pulse 96 Oximetry Lab Results 01/31/20 01/31/20 01/31/20 Range/Units 08:05 08:05 08:05 WBC (4.5-11.0) K/mm3 RBC (3.65-5.03) M/mm3 Hgb (11.8-15.2) gm/dl Hct (35.5-45.6) % MCV (84-94) fl MCH (28-32) pg MCHC (32-34) % RDW (13.2-15.2) % Plt Count (140-440) K/mm3 Lymph % (Auto) (13.4-35.0) % Story % (Auto) (0.0-7.3) % Eos % (Auto) (0.0-4.3) % Baso % (Auto) (0.0-1.8) % Lymph # (Auto) (1.2-5.4) K/mm3 Story # (Auto) (0.0-0.8) K/mm3 Eos # (Auto) (0.0-0.4) K/mm3 Baso # (Auto) (0.0-0.1) K/mm3 Seg Neutrophils % (40.0-70.0) % Seg Neutrophils # (1.8-7.7) K/mm3 Sodium 137 (137-145) mmol/L Potassium 4.0 (3.6-5.0) mmol/L Chloride 99.3 (98-107) mmol/L Carbon Dioxide 27 (22-30) mmol/L Anion Gap 15 mmol/L BUN 12 (9-20) mg/dL Creatinine 0.7 L (0.8-1.3) mg/dL Estimated GFR > 60 ml/min BUN/Creatinine Ratio 17 % Glucose 93 (75-100) mg/dL Calcium 9.8 (8.4-10.2) mg/dL Urine Color (Yellow) Urine Turbidity (Clear) Urine pH (5.0-7.0) Ur Specific [place] (1.003-1.030) Urine Protein (Negative) mg/dL Urine Glucose (UA) (Negative) mg/dL Urine Ketones (Negative) mg/dL Urine Blood (Negative) Urine Nitrite (Negative) Urine Bilirubin (Negative) Urine Urobilinogen (<2.0) mg/dL Ur Leukocyte Esterase (Negative) Urine WBC (Auto) (0.0-6.0) /HPF Urine RBC (Auto) (0.0-6.0) /HPF Urine Bacteria (Auto) (Negative) /HPF Urine Yeast (Budding) /HPF Salicylates < 0.3 L (2.8-20.0) mg/dL Urine Opiates Screen Urine Methadone Screen Acetaminophen 5.0 L (10.0-30.0) ug/mL Ur Barbiturates Screen Ur Phencyclidine Scrn Ur Amphetamines Screen U Benzodiazepines Scrn Urine Cocaine Screen U Marijuana (THC) Screen Drugs of Abuse Note Plasma/Serum Alcohol (0-0.07) % Coronavirus (PCR) (Negative) 01/31/20 01/31/20 02/01/20 Range/Units 08:05 08:05 03:35 WBC 7.8 (4.5-11.0) K/mm3 RBC 4.88 (3.65-5.03) M/mm3 Hgb 12.8 (11.8-15.2) gm/dl Hct 39.0 (35.5-45.6) % MCV 80 L (84-94) fl MCH 26 L (28-32) pg MCHC 33 (32-34) % RDW 17.7 H (13.2-15.2) % Plt Count 210 (140-440) K/mm3 Lymph % (Auto) 12.1 L (13.4-35.0) % Story % (Auto) 10.1 H (0.0-7.3) % Eos % (Auto) 0.9 (0.0-4.3) % Baso % (Auto) 0.4 (0.0-1.8) % Lymph # (Auto) 0.9 L (1.2-5.4) K/mm3 Story # (Auto) 0.8 (0.0-0.8) K/mm3 Eos # (Auto) 0.1 (0.0-0.4) K/mm3 Baso # (Auto) 0.0 (0.0-0.1) K/mm3 Seg Neutrophils % 76.5 H (40.0-70.0) % Seg Neutrophils # 5.9 (1.8-7.7) K/mm3 Sodium (137-145) mmol/L Potassium (3.6-5.0) mmol/L Chloride (98-107) mmol/L Carbon Dioxide (22-30) mmol/L Anion Gap mmol/L BUN (9-20) mg/dL Creatinine (0.8-1.3) mg/dL Estimated GFR ml/min BUN/Creatinine Ratio % Glucose (75-100) mg/dL Calcium (8.4-10.2) mg/dL Urine Color Yellow (Yellow) Urine Turbidity Clear (Clear) Urine pH 8.0 H (5.0-7.0) Ur Specific [place] 1.014 (1.003-1.030) Urine Protein <15 mg/dl (Negative) mg/dL Urine Glucose (UA) Neg (Negative) mg/dL Urine Ketones Neg (Negative) mg/dL Urine Blood Neg (Negative) Urine Nitrite Neg (Negative) Urine Bilirubin Neg (Negative) Urine Urobilinogen < 2.0 (<2.0) mg/dL Ur Leukocyte Esterase Neg (Negative) Urine WBC (Auto) < 1.0 (0.0-6.0) /HPF Urine RBC (Auto) 3.0 (0.0-6.0) /HPF Urine Bacteria (Auto) 1+ (Negative) /HPF Urine Yeast (Budding) 1+ /HPF Salicylates (2.8-20.0) mg/dL Urine Opiates Screen Urine Methadone Screen Acetaminophen (10.0-30.0) ug/mL Ur Barbiturates Screen Ur Phencyclidine Scrn Ur Amphetamines Screen U Benzodiazepines Scrn Urine Cocaine Screen U Marijuana (THC) Screen Drugs of Abuse Note Plasma/Serum Alcohol < 0.01 (0-0.07) % Coronavirus (PCR) (Negative) 02/01/20 02/01/20 Range/Units 03:35 09:37 WBC (4.5-11.0) K/mm3 RBC (3.65-5.03) M/mm3 Hgb (11.8-15.2) gm/dl Hct (35.5-45.6) % MCV (84-94) fl MCH (28-32) pg MCHC (32-34) % RDW (13.2-15.2) % Plt Count (140-440) K/mm3 Lymph % (Auto) (13.4-35.0) % Story % (Auto) (0.0-7.3) % Eos % (Auto) (0.0-4.3) % Baso % (Auto) (0.0-1.8) % Lymph # (Auto) (1.2-5.4) K/mm3 Story # (Auto) (0.0-0.8) K/mm3 Eos # (Auto) (0.0-0.4) K/mm3 Baso # (Auto) (0.0-0.1) K/mm3 Seg Neutrophils % (40.0-70.0) % Seg Neutrophils # (1.8-7.7) K/mm3 Sodium (137-145) mmol/L Potassium (3.6-5.0) mmol/L Chloride (98-107) mmol/L Carbon Dioxide (22-30) mmol/L Anion Gap mmol/L BUN (9-20) mg/dL Creatinine (0.8-1.3) mg/dL Estimated GFR ml/min BUN/Creatinine Ratio % Glucose (75-100) mg/dL Calcium (8.4-10.2) mg/dL Urine Color (Yellow) Urine Turbidity (Clear) Urine pH (5.0-7.0) Ur Specific [place] (1.003-1.030) Urine Protein (Negative) mg/dL Urine Glucose (UA) (Negative) mg/dL Urine Ketones (Negative) mg/dL Urine Blood (Negative) Urine Nitrite (Negative) Urine Bilirubin (Negative) Urine Urobilinogen (<2.0) mg/dL Ur Leukocyte Esterase (Negative) Urine WBC (Auto) (0.0-6.0) /HPF Urine RBC (Auto) (0.0-6.0) /HPF Urine Bacteria (Auto) (Negative) /HPF Urine Yeast (Budding) /HPF Salicylates (2.8-20.0) mg/dL Urine Opiates Screen Presumptive negative Urine Methadone Screen Presumptive negative Acetaminophen (10.0-30.0) ug/mL Ur Barbiturates Screen Presumptive negative Ur Phencyclidine Scrn Presumptive negative Ur Amphetamines Screen Presumptive negative U Benzodiazepines Scrn Presumptive negative Urine Cocaine Screen Presumptive negative U Marijuana (THC) Screen Presumptive negative Drugs of Abuse Note Disclamer Plasma/Serum Alcohol (0-0.07) % Coronavirus (PCR) Negative (Negative)
== END 2020-02-03 12:28 | disposition home or self-care (01) ==
LOC: ED 05:14 → EEVIPCON 05:14 → ED 08:15
DX: S22.31XA Fracture of one rib, right side, initial encounter for closed fracture (principal); R45.851 Suicidal ideations; Z20.828 Contact with and (suspected) exposure to other viral communicable diseases; I10 Essential (primary) hypertension; E11.9 Type 2 diabetes mellitus without complications; F20.9 Schizophrenia, unspecified; F17.200 Nicotine dependence, unspecified, uncomplicated; Z98.890 Other specified postprocedural states; Z79.1 Long term (current) use of non-steroidal anti-inflammatories (NSAID); Z79.899 Other long term (current) drug therapy; Z91.018 Allergy to other foods; Z88.8 Allergy status to other drugs, medicaments and biological substances; Z88.0 Allergy status to penicillin; X83.8XXA Intentional self-harm by other specified means, initial encounter; Y93.89 Activity, other specified; Y92.89 Other specified places as the place of occurrence of the external cause; Y99.8 Other external cause status
CPT/HCPCS: 36415; 80048; 80307; 80320; 81001; 85025; G0480; U0003

== ENCOUNTER 2020-02-04 07:23 | Emergency (ER) | payer MEDICAID ==
[2020-02-04 07:57] VITALS: BP 130/78
--- NOTE | 2020-02-04 10:31 | Consultation ---
History of Present Illness - Reason for Consult Consult date: 02/04/20 Reason for consult: MHE Requesting physician: DINESH ROCHE - History of Present Psychiatric Illness Psych Progress Patient known to me from prior encounter and discharged, presented again to facility, with complaints of SI, HI, patient states he also is waiting for a check, to be sent to hospital, then he said he was not given [facility] resources, he wants to get resources. Patient reported he would like to stay. Informed patient this is a hospital facility and not a ups office, also inform patient he needs to address is social issues by going to the state public health office. Patient self endorses mcc as priority hence why he wants to get the check. REVIEW OF SYSTEMS Constitutional: Negative for weight loss ENT: Negative for stridor Respiratory: Negative for cough or hemoptysis All other systems reviewed and are negative MENTAL STATUS EXAMINATION General Appearance and Behavior: Age appropriate, fair hygiene, dishelved, poor eye contact, cooperative polite with questioning. Cooperation: Participating/engaged Psychomotor Behavior: psychomotor retardation Mood: depressed Affect and affective range: flat Thought Process: Illogical, disorganized Thought Content: circumferential Speech: Normal volume, Regular rate and rhythm Intellectual Functioning: Average Suicidal Ideation: SI Homicidal Ideation: Hi Impulse Control: Impaired Insight and Judgment: Impaired Memory: Normal Attention: Normal. Orientation: Alert, oriented Assessment and Plan - Psychiatric problem (1) Major depressive disorder with psychotic features Current Visit: Yes Status: Acute CASE WAS DISCUSSED WITH FABIAN NEWMAN, ATTENDING PHYSICIAN AND ALY WITH DISPOSITION. Patient has chronic mental health issues based on review of medical record and poor self care, no acute inpatient benefit can be seen at this time. Patient is homeless, no source of income and based on asssessment has impaired cognitive deficit unspecified. Patient also requesting to use hospital address as mail center and be allowed to stay longer until he gets a check. I will discharge patient with mcc resources and outpt follow and medications. Treatment Plan Started on zoloft MEDICATIONS: Risks, benefits and alternatives of medications discussed with the patient, questions answered and consent obtained from patient. PSYCHOTHERAPY: Supportive psychotherapy provided MEDICAL: Per primary team DELIRIUM PRECAUTIONS: Please re-orient patient frequently, keep lights on during the day, and minimize benzodiazepines and opiates as these medications could worsen patient's confusion. IRRIGATION TECHNICIAN: DISPOSITION: Do not Recommend acute inpatient psychiatric hospitalization at this time LEGAL STATUS: 1013 rescinded FOLLOW-UP: Will sign off Thank you for the consult. Please contact with any questions and/or concerns. Medications and Allergies Allergies Allergy/AdvReac Type Severity Reaction Status Date / Time broccoli Allergy Unknown Verified 01/25/20 02:33 egg Allergy Unknown Verified 01/25/20 02:33 Penicillins Allergy Unknown Verified 07/17/19 13:09 pork derived (porcine) Allergy Unknown Verified 01/25/20 02:33 turkey Allergy Unknown Verified 01/25/20 02:33 chicken derived AdvReac Unknown Verified 01/25/20 02:33 Home Medications Medication Instructions Recorded Confirmed Last Taken Type Ibuprofen [Motrin] 800 mg PO Q8HR PRN #30 tablet 04/26/19 02/01/20 Unknown Rx Mupirocin [Bactroban 2% OINT] 1 applic TP Q8H #1 tube 04/26/19 02/01/20 Unknown Rx Sulfamethoxazole/Trimethoprim 1 each PO Q12H #20 tablet 04/26/19 02/01/20 Unknown Rx [Bactrim DS TAB] traMADoL [Ultram] 50 mg PO Q6HR PRN #12 tablet 04/26/19 02/01/20 Unknown Rx Mental Status Exam - Vital signs Last Vital Signs Temp 97.6 F 02/04/20 07:54 Pulse 60 02/04/20 07:54 Resp 18 02/04/20 07:54 BP 130/78 02/04/20 07:54 Pulse Ox 94 02/04/20 07:54 Results All other labs normal.
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
== END 2020-02-04 14:29 | disposition home or self-care (01) ==
LOC: ED 07:23
DX: F20.9 Schizophrenia, unspecified (principal); F31.9 Bipolar disorder, unspecified; Z59.0 Homelessness; I10 Essential (primary) hypertension; E11.9 Type 2 diabetes mellitus without complications; F17.200 Nicotine dependence, unspecified, uncomplicated; Z98.890 Other specified postprocedural states; Z79.1 Long term (current) use of non-steroidal anti-inflammatories (NSAID); Z79.899 Other long term (current) drug therapy; Z88.8 Allergy status to other drugs, medicaments and biological substances; Z88.0 Allergy status to penicillin; Z91.018 Allergy to other foods

== ENCOUNTER 2020-02-05 07:32 | Emergency (ER) | payer MEDICAID ==
[2020-02-05 10:41] VITALS: BP 129/78
--- NOTE | 2020-02-05 10:50 | Event Note ---
ED Screening Note Date of service: 02/05/20 Time: 10:47 ED Screening Note: Patient complains of blood in the urine today Denies dysuria or penile discharge or testicular swelling Fever or abdominal pain This initial assessment/diagnostic orders/clinical plan/treatment(s) is/are subject to change based on patients health status, clinical progression and re- assessment by fellow clinical providers in the ED. Further treatment and workup at subsequent clinical providers discretion. Patient/guardian urged not to elope from the ED as their condition may be serious if not clinically assessed and managed. Initial orders include: UA
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
[2020-02-05 13:32] LABS: Bacteria,Urine 1+ /HPF (Negative); Bilirubin,Urine NEG (Negative); Blood,Urine NEG (Negative); Calcium Oxalate Crystals,Urine 1+; Color,Urine Amber (Yellow); Hyaline Casts,Urine 2 /LPF; Mucus,Urine 3+ /HPF
== END 2020-02-05 13:40 | disposition home or self-care (01) ==
LOC: ED 07:32
DX: R07.89 Other chest pain (principal); I10 Essential (primary) hypertension; E11.9 Type 2 diabetes mellitus without complications; F25.0 Schizoaffective disorder, bipolar type; F17.200 Nicotine dependence, unspecified, uncomplicated; Z79.899 Other long term (current) drug therapy; Z88.0 Allergy status to penicillin; Z91.012 Allergy to eggs; Z88.8 Allergy status to other drugs, medicaments and biological substances
CPT/HCPCS: 81001; 99283

== ENCOUNTER 2020-12-15 03:50 | Emergency (ER) | payer MEDICAID ==
[2020-12-15] MEDS ORDERED: HALOPERIDOL LACTATE 5 MG/1 ML INJ IM PRN (04:29)
[2020-12-15] MEDS ORDERED: LORazepam 2 MG/ML VIAL IM PRN (04:29)
[2020-12-15] MEDS ORDERED: diphenhydrAMINE 25 MG CAP PO PRN (04:29)
--- NOTE | 2020-12-15 04:36 | Emergency Department Report ---
ED General Adult HPI - General Chief complaint: Psych Stated complaint: AURE EVCAITLIN PUI?: No Time Seen by Provider: 12/15/20 04:27 Source: patient, EMS (Verbal report received from emergency medical services. EMS documentation not available at time of chart dictation ), RN notes reviewed, old records reviewed Mode of arrival: Ambulatory Limitations: No Limitations - History of Present Illness Initial comments: The patient was evaluated in the emergency department for symptoms described in the history of present illness. He/she was evaluated in the context of the global COVID-19 pandemic, which necessitated consideration that the patient might be at risk for infection with the virus that causes COVID-19. Institutional protocols and algorithms that pertain to the evaluation of patients at risk for COVID-19 are in a state of rapid change based on information released by regulatory bodies including the CDC and federal and state organizations. These policies and algorithms were followed during the patient's care in the emergency department. Please note that these policies, procedures and recommendations changed on a rapid basis. The patient is a 50-year-old gentleman. The patient is brought to the hospital by emergency medical services. His past medical history includes obesity, homelessness, lymphedema, schi zophrenia, bipolar disorder. EMS reported to myself that the emergency medical services were activated as the patient was requesting a general medical evaluation. EMS reported to myself that the patient has stable vital signs in the field, and is not homicidal or suicidal. While here in the waiting room, the patient endorsed suicidality. The patient tells me he is having hallucinations. The patient tells me he is going to jump in front of a train. The patient tells me he does not want to be homeless, "because I do not like the rats and it is dirty." The patient denies new or different physical pain. The patient states he might overdose on something. The patient states he is not overdosed on anything. The patient denies Covid symptoms. -: This morning Consistency: constant Improves with: none Worsens with: none - Related Data Previous Rx's Medication Instructions Recorded Last Taken Type Midodrine [Proamatine] 15 mg PO TID #60 tablet 06/06/20 Unknown Rx Mirtazapine [Remeron 15mg TAB] 15 mg PO QHS #30 tablet 06/06/20 Unknown Rx OLANzapine [ZyPREXA] 15 mg PO QDAY #30 tablet 06/06/20 Unknown Rx VALPROIC ACID Liq [DepaKENE Liq] 500 mg PO BID 30 Days 06/06/20 Unknown Rx Allergies Allergy/AdvReac Type Severity Reaction Status Date / Time broccoli Allergy Unknown Verified 12/15/20 04:11 egg Allergy Unknown Verified 12/15/20 04:11 Penicillins Allergy Unknown Verified 12/15/20 04:11 pork derived (porcine) Allergy Unknown Verified 12/15/20 04:11 turkey Allergy Unknown Verified 12/15/20 04:11 chicken derived AdvReac Unknown Verified 12/15/20 04:11 ED Review of Systems ROS: Stated complaint: MH EVAL Other details as noted in HPI Comment: (Patient is psychotic) Constitutional: denies: fever Eyes: denies: eye discharge ENT: denies: epistaxis Respiratory: denies: cough Cardiovascular: denies: chest pain Gastrointestinal: denies: abdominal pain Psychiatric: auditory hallucinations, visual hallucinations, suicidal thoughts ED Past Medical Hx - Past Medical History Hx Hypertension: Yes Hx Diabetes: Yes (Borderline) Hx Deep Vein Thrombosis: No Hx Psychiatric Treatment: Yes (Schizophrenia, bipolar disorder) Additional medical history: Lymphedema - Surgical History Hx Pacemaker: No Hx Internal Defibrillator: No Additional Surgical History: leg - Social History Smoking Status: Unknown if ever smoked - Medications Home Medications: Home Medications Medication Instructions Recorded Confirmed Last Taken Type Midodrine [Proamatine] 15 mg PO TID #60 tablet 06/06/20 Unknown Rx Mirtazapine [Remeron 15mg TAB] 15 mg PO QHS #30 tablet 06/06/20 Unknown Rx OLANzapine [ZyPREXA] 15 mg PO QDAY #30 tablet 06/06/20 Unknown Rx VALPROIC ACID Liq [DepaKENE Liq] 500 mg PO BID 30 Days 06/06/20 Unknown Rx ED Physical Exam - General Limitations: Other (Disorganized behavior) General appearance: alert, anxious, obese - Head Head exam: Present: atraumatic, normocephalic - Eye Eye exam: Present: normal appearance, EOMI. Absent: nystagmus - ENT ENT exam: Present: normal exam, normal orophraynx, mucous membranes moist, normal external ear exam - Neck Neck exam: Present: normal inspection, full ROM. Absent: tenderness, mening ismus - Respiratory Respiratory exam: Present: normal lung sounds bilaterally. Absent: respiratory distress, wheezes, rales, rhonchi, stridor, chest wall tenderness, accessory muscle use, decreased breath sounds, prolonged expiratory - Cardiovascular Cardiovascular Exam: Present: regular rate, normal rhythm, normal heart sounds. Absent: bradycardia, tachycardia, irregular rhythm, systolic murmur, diastolic murmur, rubs, gallop - GI/Abdominal GI/Abdominal exam: Present: soft. Absent: distended, tenderness, guarding, rebound, pulsatile mass - Rectal Rectal exam: Present: deferred - Extremities Exam Extremities exam: Present: normal inspection, pedal edema (Chronic lymphedema noted in the bilateral lower extremity) - Back Exam Back exam: Present: normal inspection. Absent: tenderness, CVA tenderness (R), CVA tenderness (L), paraspinal tenderness, vertebral tenderness - Neurological Exam Neurological exam: Present: alert, other (No facial droop. Tongue midline. Extraocular movements intact bilaterally. Facial sensation intact to light touch in V1, V2, V3 distribution bilaterally. 5 and a 5 strength in 4 ex tremities. Sensation intact to light touch in 4 extremities.) - Psychiatric Psychiatric exam: Present: agitated, anxious, suicidal ideation - Skin Skin exam: Present: warm, dry, intact, normal color. Absent: rash ED Course Vital Signs 12/15/20 04:12 Temperature 98.1 F Pulse Rate 70 Respiratory 18 Rate Blood Pressure 128/74 O2 Sat by Pulse 96 Oximetry - Reevaluation(s) Reevaluation #1: 12/15/20 04:34 Differential diagnosis, including but not limited to: Homelessness, psychosis, lymphedema which is chronic, medical clearance for psychiatric placement Assessment and plan: 50-year-old gentleman, who states that he is suicidal and having hallucinations. The patient also states he does not like being homeless. The patient indicates he is not in a penitentiary at this time. Unclear if the patient is truly psychotic or presenting for secondary gain. However, given his known history, his articulation of hallucinations and suicidality, we will place the patient on a 1013 involuntary hold. Appropriate laboratory studies will be obtained, as per the typical request of our psychiatry colleagues. We will obtain urinalysis, UDS and Covid screen. As needed medications ordered. Have also requested decontamination as the patient appears to be homeless. Reassess after laboratory studies have resulted. 12/15/20 05:14 Laboratory studies unremarkable. Urinalysis, UDS and Covid swab pending. The patient at this point time does not appear to have an immediate medical contraindication to psychiatric admission, evaluation, consultation and placement. The emergency room will follow along as the patient provides urine for urinalysis and UDS evaluation. Covid swab ordered in anticipation of placement. Do not clinically suspect Covid at this time. ED Medical Decision Making - Lab Data Result diagrams: 12/15/20 04:33 12/15/20 04:33 Vital Signs 12/15/20 04:12 Temperature 98.1 F Pulse Rate 70 Respiratory 18 Rate Blood Pressure 128/74 O2 Sat by Pulse 96 Oximetry Vital Signs 12/15/20 04:12 Temperature 98.1 F Pulse Rate 70 Respiratory 18 Rate Blood Pressure 128/74 O2 Sat by Pulse 96 Oximetry Lab Results 12/15/20 12/15/20 12/15/20 Range/Units 04:33 04:33 04:33 WBC 5.5 (4.5-11.0) K/mm3 RBC 4.71 (3.65-5.03) M/mm3 Hgb 13.2 (11.8-15.2) gm/dl Hct 39.2 (35.5-45.6) % MCV 83 L (84-94) fl MCH 28 (28-32) pg MCHC 34 (32-34) % RDW 14.3 (13.2-15.2) % Plt Count 187 (140-440) K/mm3 Sodium 136 L (137-145) mmol/L Potassium 3.9 (3.6-5.0) mmol/L Chloride 100.0 (98-107) mmol/L Carbon Dioxide 26 (22-30) mmol/L Anion Gap 14 mmol/L BUN 9 (9-20) mg/dL Creatinine 0.7 L (0.8-1.3) mg/dL Estimated GFR > 60 ml/min BUN/Creatinine Ratio 13 % Glucose 83 (75-100) mg/dL Calcium 9.7 (8.4-10.2) mg/dL Total Creatine Kinase 162 (55-170) units/L Salicylates < 0.3 L (2.8-20.0) mg/dL Acetaminophen (10.0-30.0) ug/mL Valproic Acid < 2.8 L (50-100) ug/mL Plasma/Serum Alcohol (0-0.07) % 12/15/20 12/15/20 Range/Units 04:33 04:33 WBC (4.5-11.0) K/mm3 RBC (3.65-5.03) M/mm3 Hgb (11.8-15.2) gm/dl Hct (35.5-45.6) % MCV (84-94) fl MCH (28-32) pg MCHC (32-34) % RDW (13.2-15.2) % Plt Count (140-440) K/mm3 Sodium (137-145) mmol/L Potassium (3.6-5.0) mmol/L Chloride (98-107) mmol/L Carbon Dioxide (22-30) mmol/L Anion Gap mmol/L BUN (9-20) mg/dL Creatinine (0.8-1.3) mg/dL Estimated GFR ml/min BUN/Creatinine Ratio % Glucose (75-100) mg/dL Calcium (8.4-10.2) mg/dL Total Creatine Kinase (55-170) units/L Salicylates (2.8-20.0) mg/dL Acetaminophen 5.0 L (10.0-30.0) ug/mL Valproic Acid (50-100) ug/mL Plasma/Serum Alcohol < 0.01 (0-0.07) % Critical care attestation.: If time is entered above; I have spent that time in minutes in the direct care of this critically ill patient, excluding procedure time. ED Disposition Clinical Impression: Medical clearance for psychiatric admission, Homelessness Disposition: [address] [place] [address] Is pt being admited?: No Does the pt Need Aspirin: No Condition: Good
[2020-12-15 04:51] LABS: Hematocrit 39.2 % (35.5-45.6); Hemoglobin 13.2 gm/dl (11.8-15.2); Mean Corpuscular HGB Conc 34 % (32-34); Mean Corpuscular Volume 83 fl (84-94); Platelet Count 187 K/mm3 (140-440); Red Blood Count 4.71 M/mm3 (3.65-5.03); Red Cell Distribution Width 14.3 % (13.2-15.2)
[2020-12-15 05:09] LABS: Blood Urea Nitrogen 9 mg/dL (9-20); Calcium 9.7 mg/dL (8.4-10.2); Hemolysis Index 11
[2020-12-15 05:10] LABS: BUN/Creatinine Ratio 13
[2020-12-15 08:55] VITALS: BP 114/63
[2020-12-15] MEDS ORDERED: NICOTINE 21 MG/24 HR PATCH TD SCH (10:00)
--- NOTE | 2020-12-15 10:27 | Consultation ---
History of Present Illness - Reason for Consult Consult date: 12/15/20 Reason for consult: SI - History of Present Psychiatric Illness Per ER Note: The patient is a 50-year-old gentleman. The patient is brought to the hospital by emergency medical services. His past medical history includes obesity, homelessness, lymphedema, schizophrenia, bipolar disorder. EMS reported to myself that the emergency medical services were activated as the patient was requesting a general medical evaluation. EMS reported to myself that the patient has stable vital signs in the field, and is not homicidal or suicidal. While here in the waiting room, the patient endorsed suicidality. The patient tells me he is having hallucinations. The patient tells me he is going to jump in front of a train. The patient tells me he does not want to be homeless, "because I do not like the rats and it is dirty." The patient denies new or different physical pain. The patient states he might overdose on something. The patient states he is not overdosed on anything. Young Burkett is a 50y/o male patient whom I evaluated today. The patient is a/o x 2. He says he came to the hospital because he is "frustrated because I haven't gotten my check yet." The patient says he has a history of having "violent outbursts, depression, violent screams and getting aggravated easy." He denies SI/HI, but states "my violent outbursts could get me killed because I don't know how to take a joke." He says "I get in people face and start screaming." He says he does not take his meds. The patient says "I don't need no psych meds. I'm fine without all that." The patient says "but really, I want to live and want someone I can come home to." He denies hallucinations of any kind. He denies illicit drug use or alcohol. The patient says "I do cigars." At times the patient is rambling. PAST PSYCHIATRIC HISTORY Diagnoses: bipolar, schizophrenia Suicide attempts or Self-harm behavior: Yes Prior psychiatric hospitalizations: Yes Substance Abuse history: denies Previous psychiatric medications tried: states he doesn't take them Outpatient treatment: Denies PAST MEDICAL HISTORY: None reported Family Psychiatric History: None reported or documented SOCIAL HISTORY Marital Status: Single Living Arrangements: states by himself Employment Status: Unemployed Access to guns/weapons: None reported Education: History of Abuse: None reported Legal History: Yes REVIEW OF SYSTEMS Constitutional: Negative for weight loss ENT: Negative for stridor Respiratory: Negative for cough or hemoptysis All other systems reviewed and are negative MENTAL STATUS EXAMINATION General Appearance and Behavior: Age appropriate, good hygiene, wearing appropriate clothes, good eye contact, calm, cooperative Cooperation: Participating/engaged Psychomotor Behavior: Psychomotor normal Mood: okay Affect and affective range: Congruent with mood Thought Process: goal directed Thought Content: none Speech: Normal rate, volume and rhythm Suicidal Ideation: Denies Homicidal Ideation: Denies Impulse Control: Impaired Insight and Judgment: Limited insight and judgment Memory: Limited Attention: Normal Orientation: Alert, oriented Assessment and Plan (1) Hx of Schizophrenia (2) Hx of Bipolar REVIEW OF SYSTEMS Constitutional: Negative for weight loss ENT: Negative for stridor Respiratory: Negative for cough or hemoptysis All other systems reviewed and are negative MENTAL STATUS EXAMINATION General Appearance and Behavior: Age appropriate, fair hygiene, dishelved, poor eye contact, cooperative polite with questioning. Cooperation: Participating/engaged Psychomotor Behavior: psychomotor retardation Mood: okay Affect and affective range: congruent with stated mood Thought Process: circumstantial Thought Content: None Speech: Normal volume, Regular rate and rhythm, rambling at times Suicidal Ideation: Denies Homicidal Ideation: Denies Impulse Control: Limited Insight and Judgment: Limited Memory: Limited Attention: Limited Orientation: Alert, oriented x 2 Treatment Plan d/c 1013 No meds at this time Risks, benefits and alternatives of medications discussed with the patient, questions answered and consent obtained from patient. PSYCHOTHERAPY: Supportive psychotherapy provided MEDICAL: Per primary team DELIRIUM PRECAUTIONS: Please re-orient patient frequently, keep lights on during the day, and minimize benzodiazepines and opiates as these medications could worsen patient's confusion. LICENSED PLUMBER: Defer to medical DISPOSITION: Do not recommend acute psychiatric inpatient treatment The tank calibrator to give the patient all necessary outpatient resources including CBT, med management and assistance, [facility], shelter and transportation pass The patient to follow up with outpatient psych in 7 to 14 days upon discharge Will sign off. Thank you for the consult. Please contact with any questions and/or concerns. Case staffed with Dr. Tipton Medications and Allergies Allergies Allergy/AdvReac Type Severity Reaction Status Date / Time nael Allergy Unknown Verified 12/15/20 04:11 egg Allergy Unknown Verified 12/15/20 04:11 Penicillins Allergy Unknown Verified 12/15/20 04:11 pork derived (porcine) Allergy Unknown Verified 12/15/20 04:11 turkey Allergy Unknown Verified 12/15/20 04:11 chicken derived AdvReac Unknown Verified 12/15/20 04:11 Home Medications Medication Instructions Recorded Confirmed Last Taken Type Midodrine [Proamatine] 15 mg PO TID #60 tablet 06/06/20 Unknown Rx Mirtazapine [Remeron 15mg TAB] 15 mg PO QHS #30 tablet 06/06/20 Unknown Rx OLANzapine [ZyPREXA] 15 mg PO QDAY #30 tablet 06/06/20 Unknown Rx VALPROIC ACID Liq [DepaKENE Liq] 500 mg PO BID 30 Days 06/06/20 Unknown Rx Active Meds: Active Medications Diphenhydramine HCl (Diphenhydramine 25 Mg Cap) 50 mg PO QHS PRN PRN Reason: Insomnia Haloperidol Lactate (Haloperidol Lactate 5 Mg/1 Ml Inj) 5 mg IM Q6HR PRN PRN Reason: Agitation Lorazepam (Lorazepam 2 Mg/Ml Vial) 2 mg IM Q4HR PRN PRN Reason: Agitation Nicotine (Nicotine 21 Mg/24 Hr Patch) 21 mg TD QDAY [facility] Mental Status Exam - Vital signs Last Vital Signs Temp 98 F 12/15/20 08:54 Pulse 67 12/15/20 08:54 Resp 18 12/15/20 08:54 BP 114/63 12/15/20 08:54 Pulse Ox 96 12/15/20 08:54 Results Result Diagrams: 12/15/20 04:33 12/15/20 04:33 Abnormal lab results 12/15/20 12/15/20 12/15/20 Range/Units 04:33 04:33 04:33 MCV 83 L (84-94) fl Sodium 136 L (137-145) mmol/L Creatinine 0.7 L (0.8-1.3) mg/dL Salicylates < 0.3 L (2.8-20.0) mg/dL Acetaminophen (10.0-30.0) ug/mL Valproic Acid < 2.8 L (50-100) ug/mL 12/15/20 Range/Units 04:33 MCV (84-94) fl Sodium (137-145) mmol/L Creatinine (0.8-1.3) mg/dL Salicylates (2.8-20.0) mg/dL Acetaminophen 5.0 L (10.0-30.0) ug/mL Valproic Acid (50-100) ug/mL All other labs normal.
== END 2020-12-15 17:05 | disposition home or self-care (01) ==
LOC: ED 03:50
DX: R45.851 Suicidal ideations (principal); F20.9 Schizophrenia, unspecified; F31.9 Bipolar disorder, unspecified; Z13.30 Encounter for screening examination for mental health and behavioral disorders, unspecified; Z59.0 Homelessness; Z20.822 Contact with and (suspected) exposure to COVID-19; I10 Essential (primary) hypertension; E11.8 Type 2 diabetes mellitus with unspecified complications; I89.0 Lymphedema, not elsewhere classified; Z98.890 Other specified postprocedural states; Z88.0 Allergy status to penicillin; Z91.012 Allergy to eggs; Z91.018 Allergy to other foods
CPT/HCPCS: 36415; 80048; 80164; 82550; 85027; 99284; U0003; 80320; 99285; G0480

== ENCOUNTER 2021-05-26 05:50 | Emergency (ER) | payer MEDICAID ==
[2021-05-26 06:01] VITALS: BP 150/100
--- NOTE | 2021-05-26 06:58 | Emergency Department Report ---
ED Abdominal Pain HPI - General Chief Complaint: Abdominal Pain Stated Complaint: ABD PAIN Time Seen by Provider: 05/26/21 06:52 Source: patient, EMS Mode of arrival: Ambulatory Limitations: No Limitations - History of Present Illness Initial Comments: Chief complaint: "I need something for my stomach." HPI: This is a 51-year-old male with history of bipolar disorder schizophrenia hypertension diabetes mellitus who presents with abdominal pain. Intermittent mild dull abdominal pain which has been present for several years. He has had normal bowel movements. No vomiting. No fever. He denies suicidal homicidal ideation. He was recently released from incarceration. MD Complaint: abdominal pain -: Gradual, days(s) (1 day) Location: diffuse Radiation: none Migration to: no migration Severity: moderate Consistency: intermittent Improves With: nothing Worsens With: nothing Associated Symptoms: denies other symptoms - Related Data Previous Rx's Medication Instructions Recorded Last Taken Type Midodrine [Proamatine] 15 mg PO TID #60 tablet 06/06/20 Unknown Rx Mirtazapine [Remeron 15mg TAB] 15 mg PO QHS #30 tablet 06/06/20 Unknown Rx OLANzapine [ZyPREXA] 15 mg PO QDAY #30 tablet 06/06/20 Unknown Rx VALPROIC ACID Liq [DepaKENE Liq] 500 mg PO BID 30 Days 06/06/20 Unknown Rx Omeprazole 20 mg PO DAILY 30 Days #30 05/26/21 Unknown Rx Allergies Allergy/AdvReac Type Severity Reaction Status Date / Time broccoli Allergy Unknown Verified 12/15/20 04:11 egg Allergy Unknown Verified 12/15/20 04:11 Penicillins Allergy Unknown Verified 12/15/20 04:11 pork derived (porcine) Allergy Unknown Verified 12/15/20 04:11 turkey Allergy Unknown Verified 12/15/20 04:11 chicken derived AdvReac Unknown Verified 12/15/20 04:11 ED Review of Systems ROS: Stated complaint: ABD PAIN Other details as noted in HPI Comment: All other systems reviewed and negative Constitutional: denies: chills, fever, malaise Respiratory: denies: cough, shortness of breath Cardiovascular: as per HPI. denies: chest pain, palpitations Gastrointestinal: abdominal pain. denies: nausea, vomiting, diarrhea ED Past Medical Hx - Past Medical History Previous Medical History?: Yes Hx Hypertension: Yes Hx Diabetes: Yes (Borderline) Hx Deep Vein Thrombosis: No Hx Psychiatric Treatment: Yes (Schizophrenia, bipolar disorder) Additional medical history: Lymphedema - Surgical History Past Surgical History?: Yes Hx Pacemaker: No Hx Internal Defibrillator: No Additional Surgical History: leg - Social History Smoking Status: Current Every Day Smoker Substance Use Type: None - Medications Home Medications: Home Medications Medication Instructions Recorded Confirmed Last Taken Type Midodrine [Proamatine] 15 mg PO TID #60 tablet 06/06/20 Unknown Rx Mirtazapine [Remeron 15mg TAB] 15 mg PO QHS #30 tablet 06/06/20 Unknown Rx OLANzapine [ZyPREXA] 15 mg PO QDAY #30 tablet 06/06/20 Unknown Rx VALPROIC ACID Liq [DepaKENE Liq] 500 mg PO BID 30 Days 06/06/20 Unknown Rx Omeprazole 20 mg PO DAILY 30 Days #30 05/26/21 Unknown Rx ED Physical Exam - General Limitations: No Limitations General appearance: alert, in no apparent distress, other (Calm cooperative) - Head Head exam: Present: atraumatic, normocephalic - Eye Eye exam: Present: normal appearance - ENT ENT exam: Present: mucous membranes moist - Neck Neck exam: Present: normal inspection - Respiratory Respiratory exam: Present: normal lung sounds bilaterally. Absent: respiratory distress, wheezes, rales, rhonchi - Cardiovascular Cardiovascular Exam: Present: regular rate, normal rhythm, normal heart sounds. Absent: systolic murmur, diastolic murmur, rubs, gallop - GI/Abdominal GI/Abdominal exam: Present: soft, normal bowel sounds. Absent: distended, tenderness, guarding, rebound - Rectal Rectal exam: Present: deferred - Extremities Exam Extremities exam: Present: normal inspection - Back Exam Back exam: Present: normal inspection - Neurological Exam Neurological exam: Present: alert, oriented X3 - Psychiatric Psychiatric exam: Present: normal affect, normal mood - Skin Skin exam: Present: warm, dry, intact, normal color. Absent: rash ED Course Vital Signs 05/26/21 06:01 Temperature 98 F Pulse Rate 88 Respiratory 18 Rate Blood Pressure 150/100 [Right] O2 Sat by Pulse 100 Oximetry ED Medical Decision Making - Medical Decision Making 1. Irritable bowel syndrome prescribed omeprazole 2. History of bipolar disorder, schizophrenia: Patient is not responding to internal stimuli. He is calm and cooperative. He denies suicidal homicidal ideation. 3. Homelessness: Patient has large plastic bag containing his belongings. He states that he has access to an apartment. Critical care attestation.: If time is entered above; I have spent that time in minutes in the direct care of this critically ill patient, excluding procedure time. ED Disposition Clinical Impression: Irritable bowel syndrome Disposition: HOME / SELF CARE / HOMELESS Is pt being admited?: No Does the pt Need Aspirin: No Condition: Stable Instructions: Irritable Bowel Syndrome, Adult Prescriptions: Omeprazole 20 mg PO DAILY 30 Days #30 Referrals: LAWANDA BRUNNER MD [Staff Physician] - 3-5 Days
== END 2021-05-26 07:20 | disposition home or self-care (01) ==
LOC: ED 05:50
DX: K58.9 Irritable bowel syndrome, unspecified (principal); Z59.00 Homelessness unspecified; I10 Essential (primary) hypertension; E11.9 Type 2 diabetes mellitus without complications; F20.9 Schizophrenia, unspecified; Z98.890 Other specified postprocedural states; Z79.899 Other long term (current) drug therapy; F17.200 Nicotine dependence, unspecified, uncomplicated; Z91.012 Allergy to eggs; Z91.02 Food additives allergy status; Z88.0 Allergy status to penicillin; Z91.014 Allergy to mammalian meats; Z91.018 Allergy to other foods
CPT/HCPCS: 99283

== ENCOUNTER 2021-05-29 11:58 | Emergency (ER) | payer MEDICAID ==
[2021-05-29 12:15] VITALS: BP 114/68
[2021-05-29 14:41] LABS: Alanine Aminotransferase 13 units/L (7-56); Albumin 4.5 g/dL (3.9-5); Blood Urea Nitrogen 9 mg/dL (9-20); Hemolysis Index 9
--- NOTE | 2021-05-29 14:43 | Event Note ---
ED Screening Note ED Screening Note: Patient presents with complaints of right upper abdominal pain Patient seen for the same 05/26/2021 Patient is a poor historian No significant tenderness of abdomen noted on exam This initial assessment/diagnostic orders/clinical plan/treatment(s) is/are subject to change based on patients health status, clinical progression and re- assessment by fellow clinical providers in the ED. Further treatment and workup at subsequent clinical providers discretion. Patient/guardian urged not to elope from the ED as their condition may be serious if not clinically assessed and managed. Initial orders include: Labs
[2021-05-29 15:03] LABS: BUN/Creatinine Ratio 13
[2021-05-29 17:05] LABS: Basophils % (Auto) 0.4 % (0.0-1.8); Eosinophils # (Auto) 0.2 K/mm3 (0.0-0.4); Eosinophils % (Auto) 2.4 % (0.0-4.3); Hemoglobin 10.7 gm/dl (11.8-15.2); Lymphocytes % (Auto) 15.5 % (13.4-35.0); Mean Corpuscular HGB Conc 33 % (32-34); Mean Corpuscular Volume 82 fl (84-94); Monocytes # (Auto) 0.7 K/mm3 (0.0-0.8); Monocytes % (Auto) 10.8 % (0.0-7.3); Platelet Count 226 K/mm3 (140-440); Red Blood Count 4.03 M/mm3 (3.65-5.03); Red Cell Distribution Width 15.8 % (13.2-15.2)
== END 2021-05-29 23:47 | disposition home or self-care (01) ==
LOC: ED 11:58
DX: R10.11 Right upper quadrant pain (principal); Z53.21 Procedure and treatment not carried out due to patient leaving prior to being seen by health care provider
CPT/HCPCS: 36415; 80053; 83690; 85025

== ENCOUNTER 2021-06-12 15:51 | Emergency (ER) | payer MEDICAID ==
[2021-06-13] MEDS ORDERED: SULFAMETHOXAZOLE/TRIMETHOPRIM 800/160MG DS TAB PO ONE (03:01)
[2021-06-13] MEDS ORDERED: KETOROLAC 30 MG/1 ML INJ IV ONE (03:01)
[2021-06-13 04:04] LABS: Basophils % (Auto) 0.6 % (0.0-1.8); Eosinophils # (Auto) 0.2 K/mm3 (0.0-0.4); Eosinophils % (Auto) 3.4 % (0.0-4.3); Hematocrit 33.3 % (35.5-45.6); Hemoglobin 10.5 gm/dl (11.8-15.2); Lymphocytes # (Auto) 0.9 K/mm3 (1.2-5.4); Mean Corpuscular HGB Conc 32 % (32-34); Mean Corpuscular Volume 82 fl (84-94); Monocytes # (Auto) 0.5 K/mm3 (0.0-0.8); Monocytes % (Auto) 9.7 % (0.0-7.3); Platelet Count 266 K/mm3 (140-440); Red Blood Count 4.05 M/mm3 (3.65-5.03); Red Cell Distribution Width 16.1 % (13.2-15.2)
[2021-06-13 04:28] LABS: Alanine Aminotransferase 10 units/L (7-56); Blood Urea Nitrogen 16 mg/dL (9-20); Calcium 9.4 mg/dL (8.4-10.2); Hemolysis Index 19
[2021-06-13 04:33] LABS: BUN/Creatinine Ratio 23
--- NOTE | 2021-06-13 06:16 | Emergency Department Report ---
ED Extremity Problem HPI - General Chief complaint: Extremity Injury, Lower Stated complaint: LEG WOMB Source: patient Mode of arrival: Ambulatory Limitations: No Limitations - History of Present Illness Initial comments: Patient is a 51-year-old -[place] male with a history of paranoid schizophrenia, bipolar disorder, hypertension, [id number] diabetes and chronic bilateral lower extremity lymphedema with chronic recurrent anterior left lower leg ulcerated wound who presented to the ED with complaint of persistent left lower leg pain and ulcerated wound on left lower leg for over 3 months. Patient states that he has been using topical ointments and washing the wound with peroxide and now the wound is completely ulcerated. Patient denies fever, chills, nausea and vomiting, diarrhea, dizziness, syncope, chest pain, shortness of breath, fall, traumatic injury, numbness and tingling or weakness of lower extremities bilaterally. MD Complaint: extremity pain (Left lower leg pain and swelling; ulcerated open wound), extremity swelling (Left lower leg), other (Ulcerated painful wound with purulent discharge) -: Gradual, month(s) (6) Location: left, lower extremity History of Same: Yes (Chronic) -: Yes myalgia, No fever, No associated dyspnea, No associated chest pain Radiation: distal Severity scale (0 -10): 7 Quality: aching, sharp Consistency: constant Improves with: nothing Worsens with: weight bearing, walking, palpation Associated Symptoms: denies other symptoms. denies: chest pain, shortness of breath, fever, myalgias, arthralgias - Related Data Previous Rx's Medication Instructions Recorded Last Taken Type Midodrine [Proamatine] 15 mg PO TID #60 tablet 06/06/20 Unknown Rx Mirtazapine [Remeron 15mg TAB] 15 mg PO QHS #30 tablet 06/06/20 Unknown Rx OLANzapine [ZyPREXA] 15 mg PO QDAY #30 tablet 06/06/20 Unknown Rx VALPROIC ACID Liq [DepaKENE Liq] 500 mg PO BID 30 Days 06/06/20 Unknown Rx Omeprazole 20 mg PO DAILY 30 Days #30 05/26/21 Unknown Rx Mupirocin [Bactroban 2% OINT] 1 applic TP TID #22 tube 06/13/21 Unknown Rx Sulfamethoxazole/Trimethoprim 1 each PO Q12H #20 tab 06/13/21 Unknown Rx [Bactrim DS TAB] Allergies Allergy/AdvReac Type Severity Reaction Status Date / Time broccoli Allergy Unknown Verified 12/15/20 04:11 egg Allergy Unknown Verified 12/15/20 04:11 Penicillins Allergy Unknown Verified 12/15/20 04:11 pork derived (porcine) Allergy Unknown Verified 12/15/20 04:11 turkey Allergy Unknown Verified 12/15/20 04:11 benztropine [From Cogentin] AdvReac Unknown Verified 06/12/21 17:39 chicken derived AdvReac Unknown Verified 12/15/20 04:11 haloperidol [From Haldol] AdvReac Unknown Verified 06/12/21 17:39 ED Review of Systems ROS: Stated complaint: LEG WOMB Other details as noted in HPI Constitutional: denies: chills, fever Eyes: denies: eye pain, eye discharge, vision change ENT: denies: ear pain, throat pain Respiratory: denies: cough, shortness of breath, wheezing Cardiovascular: denies: chest pain, palpitations Endocrine: no symptoms reported Gastrointestinal: denies: abdominal pain, nausea, diarrhea Genitourinary: denies: urgency, dysuria Musculoskeletal: arthralgia (Left lower leg pain and swelling with ulcerated wound), myalgia. denies: back pain, joint swelling Skin: other (Ulcerated open wound on anterior left lower leg with thick purulent discharge). denies: rash, lesions Neurological: denies: headache, weakness, paresthesias Psychiatric: denies: anxiety, depression Hematological/Lymphatic: denies: easy bleeding, easy bruising ED Past Medical Hx - Past Medical History Hx Hypertension: Yes Hx Diabetes: Yes (Borderline) Hx Deep Vein Thrombosis: No Hx Psychiatric Treatment: Yes (Schizophrenia, bipolar disorder) Additional medical history: Lymphedema - Surgical History Hx Pacemaker: No Hx Internal Defibrillator: No Additional Surgical History: leg - Social History Smoking Status: Current Every Day Smoker - Medications Home Medications: Home Medications Medication Instructions Recorded Confirmed Last Taken Type Midodrine [Proamatine] 15 mg PO TID #60 tablet 06/06/20 Unknown Rx Mirtazapine [Remeron 15mg TAB] 15 mg PO QHS #30 tablet 06/06/20 Unknown Rx OLANzapine [ZyPREXA] 15 mg PO QDAY #30 tablet 06/06/20 Unknown Rx VALPROIC ACID Liq [DepaKENE Liq] 500 mg PO BID 30 Days 06/06/20 Unknown Rx Omeprazole 20 mg PO DAILY 30 Days #30 05/26/21 Unknown Rx Mupirocin [Bactroban 2% OINT] 1 applic TP TID #22 tube 06/13/21 Unknown Rx Sulfamethoxazole/Trimethoprim 1 each PO Q12H #20 tab 06/13/21 Unknown Rx [Bactrim DS TAB] ED Physical Exam - General Limitations: No Limitations General appearance: alert, in no apparent distress - Head Head exam: Present: atraumatic, normocephalic, normal inspection - Eye Eye exam: Present: normal appearance, PERRL, EOMI - ENT ENT exam: Present: normal exam, normal orophraynx, mucous membranes moist, TM's normal bilaterally, normal external ear exam - Neck Neck exam: Present: normal inspection, full ROM. Absent: tenderness - Respiratory Respiratory exam: Present: normal lung sounds bilaterally. Absent: respiratory distress, wheezes, rales, rhonchi, chest wall tenderness, accessory muscle use, decreased breath sounds, prolonged expiratory - Cardiovascular Cardiovascular Exam: Present: regular rate, normal rhythm, normal heart sounds. Absent: systolic murmur, diastolic murmur, rubs, gallop - GI/Abdominal GI/Abdominal exam: Present: soft, normal bowel sounds. Absent: tenderness, guarding, rebound, hyperactive bowel sounds, hypoactive bowel sounds, organomegaly, mass - Extremities Exam Extremities exam: Present: normal inspection, full ROM, tenderness (Palpable le ft lower leg localized tenderness due to mild erythematous ulcerated open wound on anterior left lower leg with purulent discharge), normal capillary refill, pedal edema (Chronic bilateral lower extremity lymphedema). Absent: calf tenderness - Back Exam Back exam: Present: normal inspection, full ROM. Absent: tenderness, CVA tenderness (R), CVA tenderness (L), muscle spasm, paraspinal tenderness, vertebral tenderness - Neurological Exam Neurological exam: Present: alert, oriented X3, CN II-XII intact, normal gait, reflexes normal - Psychiatric Psychiatric exam: Present: normal affect, normal mood - Skin Skin exam: Present: warm, dry, intact, normal color. Absent: rash ED Course Vital Signs 06/12/21 06/13/21 17:46 03:50 Temperature 97.6 F Pulse Rate 80 Respiratory 20 16 Rate Blood Pressure 136/76 [Right] O2 Sat by Pulse 100 Oximetry ED Medical Decision Making - Lab Data Result diagrams: 06/13/21 03:28 06/13/21 03:28 - Medical Decision Making This is a 51-year-old -[place] male with a history of paranoid schizophrenia, bipolar disorder, hypertension, tsy-[id number] diabetes and chronic bilateral lower extremity lymphedema with chronic recurrent anterior left lower leg ulcerated wound who presented to the ED with complaint of persistent left lower leg pain and ulcerated wound on left lower leg for over 3 months. Patient states that he has been using topical ointments and washing the wound with peroxide and now the wound is completely ulcerated. In the ED, patient is alert and oriented x3 and is not in any distress. Lab test results were reviewed and are all nonactionable. Patient was treated in the ED with a IV antibiotics and pain medications. On reevaluation, patient's pain is well controlled with medication. Patient will discharge home on pain medications, oral antibiotics and topical antibiotics and advised to follow-up with the wound clinic in 5 to 7 days for reevaluation. Patient was advised return to the ED immediately if symptoms get worse. - Differential Diagnosis Chronic lymphedema; cellulitis; chronic leg ulcer Critical care attestation.: If time is entered above; I have spent that time in minutes in the direct care of this critically ill patient, excluding procedure time. ED Disposition Clinical Impression: Cellulitis of left lower extremity Chronic ulcer of left lower extremity Qualifiers: Non-pressure ulcer stage: limited to breakdown of skin Qualified Code(s): L97.921 - Non-pressure chronic ulcer of unspecified part of left lower leg limited to breakdown of skin Disposition: 01 HOME / SELF CARE / HOMELESS Is pt being admited?: No Does the pt Need Aspirin: No Condition: Stable Instructions: Cellulitis, Adult, Sguu-ta-Yijs Additional Instructions: Take medication as advised, drink plenty of fluids, follow-up with primary care physician or wound clinic in 7 to 10 days for reevaluation. Return to the ED immediately if symptoms get worse. Prescriptions: Sulfamethoxazole/Trimethoprim [Bactrim DS TAB] 1 each PO Q12H #20 tab Mupirocin [Bactroban 2% OINT] 1 applic TP TID #22 tube Referrals: CARBUCCIA,LAWANDA, MD [Primary Care Provider] - 3-5 Days [facility] [Outside] - 3-5 Days Time of Disposition: 06:20 Print Language: PALAUAN
[2021-06-13 06:56] VITALS: BP 144/77
== END 2021-06-13 06:56 | disposition home or self-care (01) ==
LOC: ED 15:51
DX: L03.116 Cellulitis of left lower limb (principal); L97.929 Non-pressure chronic ulcer of unspecified part of left lower leg with unspecified severity; I10 Essential (primary) hypertension; E11.9 Type 2 diabetes mellitus without complications; F20.9 Schizophrenia, unspecified; Z79.899 Other long term (current) drug therapy; Z98.890 Other specified postprocedural states; F17.200 Nicotine dependence, unspecified, uncomplicated; Z88.6 Allergy status to analgesic agent; Z91.012 Allergy to eggs; Z91.02 Food additives allergy status; Z88.0 Allergy status to penicillin; Z91.014 Allergy to mammalian meats; Z91.09 Other allergy status, other than to drugs and biological substances
CPT/HCPCS: 36415; 80053; 85025; 87040; 96365; 96375; 99283; J1885; J7502

== ENCOUNTER 2021-06-14 21:55 | Emergency (ER) | payer MEDICAID ==
[2021-06-14 22:26] VITALS: BP 156/62
== END 2021-06-15 03:43 | disposition left against medical advice (07) ==
LOC: ED 21:55
DX: R10.9 Unspecified abdominal pain (principal); Z53.21 Procedure and treatment not carried out due to patient leaving prior to being seen by health care provider

== ENCOUNTER → 2021-06-17 01:31 | Emergency (ER) | payer MEDICAID | END | disposition left against medical advice (07) | LOC: ED 01:31 | DX: Z00.00 Encounter for general adult medical examination without abnormal findings (principal); Z53.21 Procedure and treatment not carried out due to patient leaving prior to being seen by health care provider ==

== ENCOUNTER 2021-06-20 21:40 | Emergency (ER) | payer MEDICAID | END 2021-06-21 01:00 | disposition left against medical advice (07) | LOC: ED 21:40 | DX: T14.8XXA Other injury of unspecified body region, initial encounter (principal); Z53.21 Procedure and treatment not carried out due to patient leaving prior to being seen by health care provider; X58.XXXA Exposure to other specified factors, initial encounter; Y93.89 Activity, other specified; Y92.89 Other specified places as the place of occurrence of the external cause; Y99.8 Other external cause status ==

== ENCOUNTER 2021-06-21 22:34 | Emergency (ER) | payer MEDICAID | END 2021-06-22 00:15 | disposition left against medical advice (07) | LOC: ED 22:34 | DX: M79.606 Pain in leg, unspecified (principal); Z13.30 Encounter for screening examination for mental health and behavioral disorders, unspecified; Z53.21 Procedure and treatment not carried out due to patient leaving prior to being seen by health care provider ==

== ENCOUNTER 2021-06-22 22:06 | Emergency (ER) | payer MEDICAID ==
[2021-06-23] MEDS ORDERED: LORazepam 2 MG/ML VIAL IM PRN (01:07)
[2021-06-23] MEDS ORDERED: HALOPERIDOL LACTATE 5 MG/1 ML INJ IM PRN (01:07)
[2021-06-23] MEDS ORDERED: ZIPRASIDONE MESYLATE 20 MG VIAL IM PRN (01:08)
--- NOTE | 2021-06-23 01:10 | Emergency Department Report ---
ED General Adult HPI - General Chief complaint: Extremity Injury, Lower Stated complaint: im chopping up zombies Time Seen by Provider: 06/23/21 00:54 Source: patient, EMS ( EMS documentation not available at time of chart dictation ), RN notes reviewed, old records reviewed Mode of arrival: Stretcher Limitations: Other (Patient is disorganized and psychotic) - History of Present Illness Initial comments: The patient is a 51-year-old gentleman who is well-known to myself and to this institution, who presents to the ER today with a complaint of chronic leg wound. 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 Patient also states he is going to chop up a zombies. He would not answer questions as to whether or not he overdosed on anything. - Related Data Previous Rx's Medication Instructions Recorded Last Taken Type Midodrine [Proamatine] 15 mg PO TID #60 tablet 06/06/20 Unknown Rx Mirtazapine [Remeron 15mg TAB] 15 mg PO QHS #30 tablet 06/06/20 Unknown Rx OLANzapine [ZyPREXA] 15 mg PO QDAY #30 tablet 06/06/20 Unknown Rx VALPROIC ACID Liq [DepaKENE Liq] 500 mg PO BID 30 Days 06/06/20 Unknown Rx Omeprazole 20 mg PO DAILY 30 Days #30 05/26/21 Unknown Rx Mupirocin [Bactroban 2% OINT] 1 applic TP TID #22 tube 06/13/21 Unknown Rx Sulfamethoxazole/Trimethoprim 1 each PO Q12H #20 tab 06/13/21 Unknown Rx [Bactrim DS TAB] Allergies Allergy/AdvReac Type Severity Reaction Status Date / Time broccoli Allergy Unknown Verified 12/15/20 04:11 egg Allergy Unknown Verified 12/15/20 04:11 Penicillins Allergy Unknown Verified 12/15/20 04:11 pork derived (porcine) Allergy Unknown Verified 12/15/20 04:11 turkey Allergy Unknown Verified 12/15/20 04:11 benztropine [From Cogentin] AdvReac Unknown Verified 06/12/21 17:39 chicken derived AdvReac Unknown Verified 12/15/20 04:11 haloperidol [From Haldol] AdvReac Unknown Verified 06/12/21 17:39 ED Review of Systems ROS: Stated complaint: SEPTIC Other details as noted in HPI Comment: Unobtainable due to pts medical conditions (Patient is acutely psychotic) ED Past Medical Hx - Past Medical History Previous Medical History?: Yes Hx Hypertension: Yes Hx Diabetes: Yes (Borderline) Hx Deep Vein Thrombosis: No Hx Psychiatric Treatment: Yes (Schizophrenia, bipolar disorder) Additional medical history: Lymphedema - Surgical History Past Surgical History?: Yes Hx Pacemaker: No Hx Internal Defibrillator: No Additional Surgical History: leg - Social History Smoking Status: Current Every Day Smoker Substance Use Type: Alcohol - Medications Home Medications: Home Medications Medication Instructions Recorded Confirmed Last Taken Type Midodrine [Proamatine] 15 mg PO TID #60 tablet 06/06/20 Unknown Rx Mirtazapine [Remeron 15mg TAB] 15 mg PO QHS #30 tablet 06/06/20 Unknown Rx OLANzapine [ZyPREXA] 15 mg PO QDAY #30 tablet 06/06/20 Unknown Rx VALPROIC ACID Liq [DepaKENE Liq] 500 mg PO BID 30 Days 06/06/20 Unknown Rx Omeprazole 20 mg PO DAILY 30 Days #30 05/26/21 Unknown Rx Mupirocin [Bactroban 2% OINT] 1 applic TP TID #22 tube 06/13/21 Unknown Rx Sulfamethoxazole/Trimethoprim 1 each PO Q12H #20 tab 06/13/21 Unknown Rx [Bactrim DS TAB] ED Physical Exam - General Limitations: Other (Patient is acutely psychotic) General appearance: obese, other (Patient is agitated) - Head Head exam: Present: atraumatic, normocephalic - Eye Eye exam: Present: normal appearance, EOMI. Absent: nystagmus - ENT ENT exam: Present: normal exam, normal orophraynx, mucous membranes moist, normal external ear exam - Neck Neck exam: Present: normal inspection, full ROM. Absent: tenderness, meningismus - Respiratory Respiratory exam: Absent: respiratory distress, stridor - Cardiovascular Cardiovascular Exam: Absent: JVD - GI/Abdominal GI/Abdominal exam: Present: soft. Absent: distended, tenderness, guarding, rebound, rigid, pulsatile mass - Rectal Rectal exam: Present: deferred - Extremities Exam Extremities exam: Present: full ROM, pedal edema (2+ edema in the bilateral lower extremities), other (2+ pulses noted in the bilateral upper and lower extremities.). Absent: normal inspection (Chronic wound noted to the left lower extremity), calf tenderness - Back Exam Back exam: Present: normal inspection. Absent: tenderness, CVA tenderness (R), CVA tenderness (L), paraspinal tenderness, vertebral tenderness - Neurological Exam Neurological exam: Present: alert, normal gait, other (No facial droop. Tongue midline. Extraocular movements intact bilaterally. Facial sensation intact to light touch in V1, V2, V3 distribution bilaterally. 5 and a 5 strength in 4 extremities. Sensation intact to light touch in 4 extremities.) - Psychiatric Psychiatric exam: Present: agitated, anxious - Skin Skin exam: Present: warm, dry, intact, normal color. Absent: rash ED Course Vital Signs 06/22/21 22:18 Pulse Rate 101 H Respiratory 18 Rate Blood Pressure 147/94 O2 Sat by Pulse 100 Oximetry - Reevaluation(s) Reevaluation #1: 06/23/21 02:11 Temperature is 98.1 degrees orally 51-year-old gentleman with acute psychosis and chronic wound. It does not appear to be superinfected. Patient is undomiciled, and I suspect that the patient is presenting to the emergency room for the purposes of secondary gain. Nevertheless, given psychosis, patient is placed on 1013. He is medicated with Geodon and Ativan. He was taken to the decontamination room, and was able to bathe. Appropriate laboratory studies ordered. Psychiatric consultation is requested. We will continue his current outpatient medications. 06/23/21 05:04 patient is able to be deescalated. His laboratory studies are unremarkable. Urinalysis, drug screen and Covid swab pending. At this point in time, this patient does not appear to have an immediate medical contraindication to psychiatric admission, evaluation, consultation and placement. The emergency room will follow along as the patient provides these. ED Medical Decision Making - Lab Data Result diagrams: 06/23/21 04:18 06/23/21 04:18 Vital Signs 06/22/21 22:18 Pulse Rate 101 H Respiratory 18 Rate Blood Pressure 147/94 O2 Sat by Pulse 100 Oximetry Lab Results 06/23/21 06/23/21 06/23/21 Range/Units 04:18 04:18 04:18 WBC (4.5-11.0) K/mm3 RBC (3.65-5.03) M/mm3 Hgb (11.8-15.2) gm/dl Hct (35.5-45.6) % MCV (84-94) fl MCH (28-32) pg MCHC (32-34) % RDW (13.2-15.2) % Plt Count (140-440) K/mm3 Sodium 135 L (137-145) mmol/L Potassium 4.4 (3.6-5.0) mmol/L Chloride 98.7 (98-107) mmol/L Carbon Dioxide 23 (22-30) mmol/L Anion Gap 18 mmol/L BUN 15 (9-20) mg/dL Creatinine 0.8 (0.8-1.3) mg/dL Estimated GFR > 60 ml/min BUN/Creatinine Ratio 19 % Glucose 95 (75-100) mg/dL Calcium 8.9 (8.4-10.2) mg/dL Salicylates < 0.3 L (2.8-20.0) mg/dL Acetaminophen 5.0 L (10.0-30.0) ug/mL Plasma/Serum Alcohol (0-0.07) % 06/23/21 06/23/21 Range/Units 04:18 04:18 WBC 6.0 (4.5-11.0) K/mm3 RBC 4.24 (3.65-5.03) M/mm3 Hgb 11.0 L (11.8-15.2) gm/dl Hct 34.3 L (35.5-45.6) % MCV 81 L (84-94) fl MCH 26 L (28-32) pg MCHC 32 (32-34) % RDW 15.0 (13.2-15.2) % Plt Count 274 (140-440) K/mm3 Sodium (137-145) mmol/L Potassium (3.6-5.0) mmol/L Chloride (98-107) mmol/L Carbon Dioxide (22-30) mmol/L Anion Gap mmol/L BUN (9-20) mg/dL Creatinine (0.8-1.3) mg/dL Estimated GFR ml/min BUN/Creatinine Ratio % Glucose (75-100) mg/dL Calcium (8.4-10.2) mg/dL Salicylates (2.8-20.0) mg/dL Acetaminophen (10.0-30.0) ug/mL Plasma/Serum Alcohol < 0.01 (0-0.07) % Critical care attestation.: If time is entered above; I have spent that time in minutes in the direct care of this critically ill patient, excluding procedure time. ED Disposition Clinical Impression: Psychosis, Homelessness, Chronic wound of extremity Disposition: [address] [place] [address] Is pt being admited?: No Does the pt Need Aspirin: No Condition: Good Referrals: PRIMARY CARE, [Primary Care Provider] - 3-5 Days
[2021-06-23 04:37] LABS: Hematocrit 34.3 % (35.5-45.6); Mean Corpuscular HGB Conc 32 % (32-34); Mean Corpuscular Volume 81 fl (84-94); Platelet Count 274 K/mm3 (140-440); Red Blood Count 4.24 M/mm3 (3.65-5.03)
[2021-06-23 04:53] LABS: BUN/Creatinine Ratio 19; Blood Urea Nitrogen 15 mg/dL (9-20); Calcium 8.9 mg/dL (8.4-10.2); Hemolysis Index 17
[2021-06-23] MEDS: MUPIROCIN 2% OINT 22 GM TP SCH ×2 (07:55→14:08)
[2021-06-23] MEDS: PANTOPRAZOLE 20 MG TAB PO SCH (10:05)
--- NOTE | 2021-06-23 10:59 | Consultation ---
History of Present Illness - Reason for Consult Consult date: 06/23/21 Reason for consult: mental health evaluation - History of Present Psychiatric Illness The patient is a 51 year old male with history of schizophrenia and bipolar disorder who presents to the ED with leg pain. The patient was seen today. He was seen in seclusion. The patient presents with disorganized thoughts. Unable to state why he came to the ED " I'm in a situation, they want me to give give them something." PAST PSYCHIATRIC HISTORY PAST MEDICAL HISTORY: None reported Family Psychiatric History: None reported or documented SOCIAL HISTORY REVIEW OF SYSTEMS MENTAL STATUS EXAMINATION Assessment and Plan (1) Hx of Schizophrenia (2) Hx of Bipolar Treatment Plan 1013 Continue home meds Risks, benefits and alternatives of medications discussed with the patient, ques tions answered and consent obtained from patient. PSYCHOTHERAPY: Supportive psychotherapy provided MEDICAL: Per primary team DELIRIUM PRECAUTIONS: Please re-orient patient frequently, keep lights on during the day, and minimize benzodiazepines and opiates as these medications could worsen patient's confusion. PHARMACY GENERAL MANAGER: Defer to medical DISPOSITION: Recommend acute psychiatric inpatient treatment. Will follow. Thank you for the consult. Please contact with any questions and/or concerns. Case staffed with Dr. Tipton Medications and Allergies Allergies Allergy/AdvReac Type Severity Reaction Status Date / Time broccoli Allergy Unknown Verified 12/15/20 04:11 egg Allergy Unknown Verified 12/15/20 04:11 Penicillins Allergy Unknown Verified 12/15/20 04:11 pork derived (porcine) Allergy Unknown Verified 12/15/20 04:11 turkey Allergy Unknown Verified 12/15/20 04:11 benztropine [From Cogentin] AdvReac Unknown Verified 06/12/21 17:39 chicken derived AdvReac Unknown Verified 12/15/20 04:11 haloperidol [From Haldol] AdvReac Unknown Verified 06/12/21 17:39 Home Medications Medication Instructions Recorded Confirmed Last Taken Type Midodrine [Proamatine] 15 mg PO TID #60 tablet 06/06/20 Unknown Rx Mirtazapine [Remeron 15mg TAB] 15 mg PO QHS #30 tablet 06/06/20 Unknown Rx OLANzapine [ZyPREXA] 15 mg PO QDAY #30 tablet 06/06/20 Unknown Rx VALPROIC ACID Liq [DepaKENE Liq] 500 mg PO BID 30 Days 06/06/20 Unknown Rx Omeprazole 20 mg PO DAILY 30 Days #30 05/26/21 Unknown Rx Mupirocin [Bactroban 2% OINT] 1 applic TP TID #22 tube 06/13/21 Unknown Rx Sulfamethoxazole/Trimethoprim 1 each PO Q12H #20 tab 06/13/21 Unknown Rx [Bactrim DS TAB] Active Meds: Active Medications Lorazepam (Lorazepam 2 Mg/Ml Vial) 2 mg IM Q4HR PRN PRN Reason: Agitation Last Admin: 06/23/21 10:34 Dose: 2 mg Mupirocin (Mupirocin 2% Oint 22 Gm) 1 applic TP TID VICKIE Last Admin: 06/23/21 07:55 Dose: 1 applic Pantoprazole Sodium (Pantoprazole 20 Mg Tab) 20 mg PO DAILY VICKIE Ziprasidone (Ziprasidone Mesylate 20 Mg Vial) 10 mg IM Q2H PRN PRN Reason: Agitation Mental Status Exam - Vital signs Last Vital Signs Temp Pulse 101 H 06/22/21 22:18 Resp 18 06/22/21 22:18 BP 147/94 06/22/21 22:18 Pulse Ox 100 06/22/21 22:18 Results Result Diagrams: 06/23/21 04:18 06/23/21 04:18 Abnormal lab results 06/23/21 06/23/21 06/23/21 Range/Units 04:18 04:18 04:18 Hgb (11.8-15.2) gm/dl Hct (35.5-45.6) % MCV (84-94) fl MCH (28-32) pg Sodium 135 L (137-145) mmol/L Salicylates < 0.3 L (2.8-20.0) mg/dL Acetaminophen 5.0 L (10.0-30.0) ug/mL 06/23/21 Range/Units 04:18 Hgb 11.0 L (11.8-15.2) gm/dl Hct 34.3 L (35.5-45.6) % MCV 81 L (84-94) fl MCH 26 L (28-32) pg Sodium (137-145) mmol/L Salicylates (2.8-20.0) mg/dL Acetaminophen (10.0-30.0) ug/mL All other labs normal.
--- NOTE | 2021-06-23 17:51 | Event Note ---
S: patient here with acute psychosis; no significant events overnight O: VS wnl HEENT: MMM; airway patent Neck: supple; no JVD Heart: RRR; n o rub or gallop Resp: CTAB; no use of CITLALY; good air entry A: delirium P: 1013; inpatient psych recommended by psych; awaiting placement.
[2021-06-23 18:35] VITALS: BP 139/88
[2021-06-23] MEDS ORDERED: MIRTAZAPINE 15 MG TAB PO SCH (22:00)
[2021-06-24] MEDS: MUPIROCIN 2% OINT 22 GM TP SCH ×2 (08:12→10:11)
[2021-06-24] MEDS: PANTOPRAZOLE 20 MG TAB PO SCH (10:08)
--- NOTE | 2021-06-24 12:06 | Progress Note ---
Subjective - Reason for Consult Consult date: 06/24/21 Reason for consult: mental health evaluation - Chief Complaint Chief complaint: The patient was seen this morning. The patient reports doing well. He denies any current suicidal/homicidal and denies hallucinations. REVIEW OF SYSTEMS MENTAL STATUS EXAMINATION Assessment and Plan (1) Hx of Schizophrenia (2) Hx of Bipolar Treatment Plan Dc 1013 Continue Zyprexa 15 mg po daily Continue Remeron 15mg po QHS Continue home meds Risks, benefits and alternatives of medications discussed with the patient, questions answered and consent obtained from patient. PSYCHOTHERAPY: Supportive psychotherapy provided MEDICAL: Per primary team DELIRIUM PRECAUTIONS: Please re-orient patient frequently, keep lights on during the day, and minimize benzodiazepines and opiates as these medications could worsen patient's confusion. ACCOUNTANT: Defer to medical DISPOSITION:Do not recommend acute psychiatric inpatient treatment. Will sign off. Thank you for the consult. Please contact with any questions and/or concerns. Case staffed with Dr. Tipton Medications and Allergies Mental Status Exam - Vital signs Last Vital Signs Temp 98.9 F 06/23/21 10:24 Pulse 94 H 06/23/21 10:24 Resp 18 06/24/21 03:14 BP 139/88 06/23/21 10:24 Pulse Ox 97 06/24/21 03:14
--- NOTE | 2021-06-24 12:48 | Event Note ---
Date: 06/24/21 Psych provider discontinued 1013 on this patient and recommended patient to be discharged home on medications. Patient appears calm and stable and without complaints at this time.
== END 2021-06-24 13:55 | disposition home or self-care (01) ==
LOC: EEVIPCON 22:06 → ED 22:06
DX: T14.8XXA Other injury of unspecified body region, initial encounter (principal); F29 Unspecified psychosis not due to a substance or known physiological condition; Z59.00 Homelessness unspecified; Z20.822 Contact with and (suspected) exposure to COVID-19; X58.XXXA Exposure to other specified factors, initial encounter; Y93.89 Activity, other specified; Y92.89 Other specified places as the place of occurrence of the external cause; Y99.8 Other external cause status
CPT/HCPCS: 36415; 80048; 85027; 96372; 99284; J2060; J3486; U0003; 80320; 99285; G0480

== ENCOUNTER 2021-07-03 02:50 | Emergency (ER) | payer MEDICAID ==
[2021-07-03 03:11] VITALS: BP 94/67
== END 2021-07-03 06:15 | disposition left against medical advice (07) ==
LOC: ED 02:50
DX: Z00.00 Encounter for general adult medical examination without abnormal findings (principal); Z53.21 Procedure and treatment not carried out due to patient leaving prior to being seen by health care provider

== ENCOUNTER 2021-07-04 17:42 | Emergency (ER) | payer MEDICAID ==
[2021-07-04 18:27] VITALS: BP 140/80
--- NOTE | 2021-07-04 22:27 | Emergency Department Report ---
ED Extremity Problem HPI - General Chief complaint: Extremity Problem,Nontraumatic Stated complaint: WOUND CARE Time Seen by Provider: 07/04/21 21:58 Source: patient Mode of arrival: Ambulatory Limitations: No Limitations - History of Present Illness Initial comments: 51 yo M who present with wanting his chronic left wound care. He says he has noticed some maggots coming out of the wound. No fever or chills reported. Pt reports some swelling to the left leg as well. No other modifying or associated factors reported. - Related Data Previous Rx's Medication Instructions Recorded Last Taken Type Midodrine [Proamatine] 15 mg PO TID #60 tablet 06/06/20 Unknown Rx Mirtazapine [Remeron 15mg TAB] 15 mg PO QHS #30 tablet 06/06/20 Unknown Rx OLANzapine [ZyPREXA] 15 mg PO QDAY #30 tablet 06/06/20 Unknown Rx VALPROIC ACID Liq [DepaKENE Liq] 500 mg PO BID 30 Days 06/06/20 Unknown Rx Omeprazole 20 mg PO DAILY 30 Days #30 05/26/21 Unknown Rx Mupirocin [Bactroban 2% OINT] 1 applic TP TID #22 tube 06/13/21 Unknown Rx Sulfamethoxazole/Trimethoprim 1 each PO Q12H #20 tab 06/13/21 Unknown Rx [Bactrim DS TAB] Clindamycin [Clindamycin CAP] 300 mg PO Q8H #30 cap 06/24/21 Unknown Rx Mirtazapine [Remeron] 15 mg PO QHS 30 Days #30 06/24/21 Unknown Rx OLANZapine [Zyprexa] 15 mg PO DAILY 30 Days #30 06/24/21 Unknown Rx Allergies Allergy/AdvReac Type Severity Reaction Status Date / Time broccoli Allergy Unknown Verified 12/15/20 04:11 egg Allergy Unknown Verified 12/15/20 04:11 Penicillins Allergy Unknown Verified 12/15/20 04:11 pork derived (porcine) Allergy Unknown Verified 12/15/20 04:11 turkey Allergy Unknown Verified 12/15/20 04:11 benztropine [From Cogentin] AdvReac Unknown Verified 06/12/21 17:39 chicken derived AdvReac Unknown Verified 12/15/20 04:11 haloperidol [From Haldol] AdvReac Unknown Verified 03/25/22 17:39 ED Review of Systems ROS: Stated complaint: WOUND CARE Other details as noted in HPI Comment: All other systems reviewed and negative Skin: other (left lower leg chronic ulcer ) ED Past Medical Hx - Past Medical History Hx Hypertension: Yes Hx Diabetes: Yes (Borderline) Hx Deep Vein Thrombosis: No Hx Psychiatric Treatment: Yes (Schizophrenia, bipolar disorder) Additional medical history: Lymphedema - Surgical History Hx Pacemaker: No Hx Internal Defibrillator: No Additional Surgical History: leg - Social History Smoking Status: Current Every Day Smoker Substance Use Type: Alcohol - Medications Home Medications: Home Medications Medication Instructions Recorded Confirmed Last Taken Type Midodrine [Proamatine] 15 mg PO TID #60 tablet 06/06/20 Unknown Rx Mirtazapine [Remeron 15mg TAB] 15 mg PO QHS #30 tablet 06/06/20 Unknown Rx OLANzapine [ZyPREXA] 15 mg PO QDAY #30 tablet 06/06/20 Unknown Rx VALPROIC ACID Liq [DepaKENE Liq] 500 mg PO BID 30 Days 06/06/20 Unknown Rx Omeprazole 20 mg PO DAILY 30 Days #30 05/26/21 Unknown Rx Mupirocin [Bactroban 2% OINT] 1 applic TP TID #22 tube 06/13/21 Unknown Rx Sulfamethoxazole/Trimethoprim 1 each PO Q12H #20 tab 06/13/21 Unknown Rx [Bactrim DS TAB] Clindamycin [Clindamycin CAP] 300 mg PO Q8H #30 cap 06/24/21 Unknown Rx Mirtazapine [Remeron] 15 mg PO QHS 30 Days #30 06/24/21 Unknown Rx OLANZapine [Zyprexa] 15 mg PO DAILY 30 Days #30 06/24/21 Unknown Rx ED Physical Exam - General Limitations: No Limitations General appearance: alert, other (unkept with offensive odor) - Head Head exam: Present: normal inspection - Eye Eye exam: Present: normal appearance - ENT ENT exam: Present: normal exam, normal orophraynx, mucous membranes dry - Neck Neck exam: Present: normal inspection. Absent: tenderness - Respiratory Respiratory exam: Present: normal lung sounds bilaterally. Absent: respiratory distress, accessory muscle use - Cardiovascular Cardiovascular Exam: Present: regular rate, normal rhythm, normal heart sounds - GI/Abdominal GI/Abdominal exam: Present: soft, normal bowel sounds. Absent: tenderness - Expanded Lower Extremity Exam Left Hip exam: Present: normal inspection Lower Leg exam: Present: tenderness, swelling, erythema Ankle exam: Present: tenderness, swelling Neuro vascular tendon exam: Present: no vascular compromise - Back Exam Back exam: Present: normal inspection - Neurological Exam Neurological exam: Present: alert, oriented X3 - Psychiatric Psychiatric exam: Present: normal affect, normal mood - Skin Skin exam: Present: dry, other (chronic left lower leg ulcer wound eschar) ED Course Vital Signs 07/04/21 18:19 Pulse Rate 103 H Respiratory 20 Rate Blood Pressure 140/80 [Right] O2 Sat by Pulse 93 Oximetry - Reevaluation(s) Reevaluation #1: 07/04/21 22:31 chronic left lower leg ulcer-- will go ahead and order routine labs including CBC,CMP and coag level and consider admission for wound clear consult. Reevaluation #2: 07/05/21 02:51 Pt decided to sign out against medical advise -- ED Medical Decision Making - Lab Data Result diagrams: 07/04/21 22:35 07/04/21 22:35 Critical care attestation.: If time is entered above; I have spent that time in minutes in the direct care of this critically ill patient, excluding procedure time. ED Disposition Clinical Impression: Chronic ulcer of left lower extremity Qualifiers: Non-pressure ulcer stage: unspecified non-pressure ulcer stage Qualified Code(s): L97.929 - Non-pressure chronic ulcer of unspecified part of left lower leg with unspecified severity Disposition: 07 LEFT AGAINST MEDICAL ADVICE Is pt being admited?: No Does the pt Need Aspirin: No Condition: Stable Additional Instructions: call or return to ED if your symptoms worsen Referrals: PRIMARY MD TOBY [Primary Care Provider] - 3-5 Days Time of Disposition: 02:53
[2021-07-05 00:02] LABS: Basophils # (Auto) 0.1 K/mm3 (0.0-0.1); Basophils % (Auto) 0.8 % (0.0-1.8); Eosinophils # (Auto) 0.3 K/mm3 (0.0-0.4); Hematocrit 31.7 % (35.5-45.6); Hemoglobin 10.6 gm/dl (11.8-15.2); Lymphocytes # (Auto) 0.9 K/mm3 (1.2-5.4); Lymphocytes % (Auto) 8.2 % (13.4-35.0); Mean Corpuscular HGB Conc 34 % (32-34); Mean Corpuscular Volume 80 fl (84-94); Monocytes # (Auto) 0.9 K/mm3 (0.0-0.8); Monocytes % (Auto) 8.5 % (0.0-7.3); Platelet Count 306 K/mm3 (140-440); Red Blood Count 3.97 M/mm3 (3.65-5.03); Red Cell Distribution Width 14.8 % (13.2-15.2)
[2021-07-05 00:07] LABS: Alanine Aminotransferase 17 units/L (7-56); Albumin 3.6 g/dL (3.9-5); BUN/Creatinine Ratio 18; Blood Urea Nitrogen 14 mg/dL (9-20); Calcium 8.9 mg/dL (8.4-10.2); Hemolysis Index 26
[2021-07-05 00:17] LABS: INR 0.99 (0.87-1.13)
[2021-07-05 00:18] LABS: Partial Thromboplastin Time 31.5 Sec. (24.2-36.6)
== END 2021-07-05 00:04 | disposition left against medical advice (07) ==
LOC: ED 17:42
DX: L97.929 Non-pressure chronic ulcer of unspecified part of left lower leg with unspecified severity (principal)
CPT/HCPCS: 36415; 80053; 85025; 85610; 85730; 99283

== ENCOUNTER 2021-07-06 17:49 | Emergency (ER) | payer MEDICAID ==
--- NOTE | 2021-07-07 06:41 | Emergency Department Report ---
<KOLBY CANELA - Last Filed: 07/07/21 07:03> ED General Adult HPI - General Chief complaint: Extremity Problem,Nontraumatic Stated complaint: PSYCH Source: EMS Mode of arrival: Wheelchair Limitations: Altered Mental Status, Physical Limitation - History of Present Illness Initial comments: 51-year-old -Aust[place] male well-known to this facility with past medical history of bipolar disorder anxiety paranoia and suspect psychosis also chronic left wound infection presents emergency department seeking admission into a psychiatric facility stating he would like to stay in there forever as he does not wish to go be out mingling with people outside. He constantly reflects back to childhood issues with his mother stating that she did not care for him very well and having tangential psychosis thoughts and associations with various cartoons such as [place] and [place]. He states that he is not suicidal but he does dream of suicide and that makes him feel good. He does not report being homicidal. He denies any current illicit drugs. No chest pain palpitations no fever chills sweats -: Gradual Severity scale (0 -10): 0 Improves with: none Worsens with: none Associated Symptoms: denies other symptoms Treatments Prior to Arrival: none - Related Data Previous Rx's Medication Instructions Recorded Last Taken Type Midodrine [Proamatine] 15 mg PO TID #60 tablet 06/06/20 Unknown Rx Mirtazapine [Remeron 15mg TAB] 15 mg PO QHS #30 tablet 06/06/20 Unknown Rx OLANzapine [ZyPREXA] 15 mg PO QDAY #30 tablet 06/06/20 Unknown Rx VALPROIC ACID Liq [DepaKENE Liq] 500 mg PO BID 30 Days 06/06/20 Unknown Rx Omeprazole 20 mg PO DAILY 30 Days #30 05/26/21 Unknown Rx Mupirocin [Bactroban 2% OINT] 1 applic TP TID #22 tube 06/13/21 Unknown Rx Sulfamethoxazole/Trimethoprim 1 each PO Q12H #20 tab 06/13/21 Unknown Rx [Bactrim DS TAB] Clindamycin [Clindamycin CAP] 300 mg PO Q8H #30 cap 06/24/21 Unknown Rx Mirtazapine [Remeron] 15 mg PO QHS 30 Days #30 06/24/21 Unknown Rx OLANZapine [Zyprexa] 15 mg PO DAILY 30 Days #30 04/06/22 Unknown Rx Mirtazapine [Remeron] 15 mg PO QHS 30 Days #30 07/07/21 Unknown Rx OLANZapine [Zyprexa] 15 mg PO DAILY 30 Days #30 07/07/21 Unknown Rx Allergies Allergy/AdvReac Type Severity Reaction Status Date / Time broccoli Allergy Unknown Verified 07/07/21 12:16 egg Allergy Unknown Verified 07/07/21 12:16 Penicillins Allergy Unknown Verified 07/07/21 12:16 pork derived (porcine) Allergy Unknown Verified 07/07/21 12:16 turkey Allergy Unknown Verified 07/07/21 12:16 benztropine [From Cogentin] AdvReac Unknown Verified 07/07/21 12:16 chicken derived AdvReac Unknown Verified 07/07/21 12:16 haloperidol [From Haldol] AdvReac Unknown Verified 07/07/21 12:16 ED Review of Systems Comment: All other systems reviewed and negative ED Past Medical Hx - Past Medical History Hx Hypertension: Yes Hx Diabetes: Yes (Borderline) Hx Deep Vein Thrombosis: No Hx Psychiatric Treatment: Yes (Schizophrenia, bipolar disorder) Additional medical history: Lymphedema - Surgical History Hx Pacemaker: No Hx Internal Defibrillator: No Additional Surgical History: leg - Social History Smoking Status: Current Every Day Smoker Substance Use Type: Alcohol - Medications Home Medications: Home Medications Medication Instructions Recorded Confirmed Last Taken Type Midodrine [Proamatine] 15 mg PO TID #60 tablet 06/06/20 Unknown Rx Mirtazapine [Remeron 15mg TAB] 15 mg PO QHS #30 tablet 06/06/20 Unknown Rx OLANzapine [ZyPREXA] 15 mg PO QDAY #30 tablet 06/06/20 Unknown Rx VALPROIC ACID Liq [DepaKENE Liq] 500 mg PO BID 30 Days 06/06/20 Unknown Rx Omeprazole 20 mg PO DAILY 30 Days #30 05/26/21 Unknown Rx Mupirocin [Bactroban 2% OINT] 1 applic TP TID #22 tube 06/13/21 Unknown Rx Sulfamethoxazole/Trimethoprim 1 each PO Q12H #20 tab 06/13/21 Unknown Rx [Bactrim DS TAB] Clindamycin [Clindamycin CAP] 300 mg PO Q8H #30 cap 06/24/21 Unknown Rx Mirtazapine [Remeron] 15 mg PO QHS 30 Days #30 06/24/21 Unknown Rx OLANZapine [Zyprexa] 15 mg PO DAILY 30 Days #30 06/24/21 Unknown Rx Mirtazapine [Remeron] 15 mg PO QHS 30 Days #30 07/07/21 Unknown Rx OLANZapine [Zyprexa] 15 mg PO DAILY 30 Days #30 07/07/21 Unknown Rx ED Physical Exam - General Limitations: Altered Mental Status, Physical Limitation General appearance: alert, in no apparent distress - Head Head exam: Present: atraumatic, normocephalic - Eye Eye exam: Present: normal appearance - ENT ENT exam: Present: mucous membranes moist - Neck Neck exam: Present: normal inspection - Respiratory Respiratory exam: Present: normal lung sounds bilaterally. Absent: respiratory distress - Cardiovascular Cardiovascular Exam: Present: regular rate, normal rhythm. Absent: systolic murmur, diastolic murmur, rubs, gallop - GI/Abdominal GI/Abdominal exam: Present: soft, normal bowel sounds - Rectal Rectal exam: Present: deferred - Extremities Exam Extremities exam: Present: normal inspection, tenderness, pedal edema - Expanded Lower Extremity Exam Left Lower Leg exam: Present: tenderness, swelling (Extremity chronic wound with some serous drainage 1+ dorsalis pedis.) Foot/Toe exam: Absent: normal inspection (Onychomycosis is present scaling is appreciated between 2) Right Lower Leg exam: Present: tenderness, swelling (1+ edema to the right lower extremity pulses 2+ onychomycosis is present to the right toenails) Neuro vascular tendon exam: Present: no vascular compromise - Back Exam Back exam: Present: normal inspection - Neurological Exam Neurological exam: Present: alert, oriented X3 - Psychiatric Psychiatric exam: Present: normal affect, normal mood, agitated (Micro flares of aggression and agitation), anxious, other - Skin Skin exam: Present: warm, dry, intact, normal color. Absent: rash ED Course - Consultations Consultation #1: 07/07/21 07:[address] Wilkins who recommended to the psychiatric work- up/evaluation ED Disposition Clinical Impression: Homelessness, Schizophrenia Chronic ulcer of left lower extremity Qualifiers: Non-pressure ulcer stage: with fat layer exposed Qualified Code(s): L97.922 - Non-pressure chronic ulcer of unspecified part of left lower leg with fat layer exposed Disposition: 01 HOME / SELF CARE / HOMELESS Condition: Stable Instructions: Schizophrenia, Venous Ulcer, [id number] Additional Instructions: Professional and Agency Contacts To help [facility] Crises(11/10) [place] Crisis Line: Suicide Prevention Line: Crisis Text Line: Text START to 265060 Emergency: 911 Outpatient COMMUNITY Behavioral Health Resources: [place]: [facility] [address] [place], [place] [address] [place] [facility] [place]: [facility] [address] [place] [address] [place]: [facility] [address] [place] [address] Tuesday thru Tuesday - 8am - 5pm [facility] Service Address: [address] [place] [address] [place]: [facility] Address: [address] [place] [address] Tuesday thru Tuesday- 7am-2pm [facility] Address: [address] [place] [address] Tuesday thru Tuesday: 8:30AM-5PM OUTPATIENT MENTAL HEALTH RESOURCES [facility], [address] [place], [place] [id number] [facility] Afshin Bianchi MD: [address] [facility] [address] [place], [place] [id number] [place] [facility]: [address] [place], [place] [id number] [employer] [place], [place] [id number] [phone] [facility]: [address] [facility] [address] [place], [place] [id number] [facility]: [address] [facility] [address] [facility] [id number] [place] [facility]: [address] [place] [address] Matt Cagle MD: [address] [facility] [place] [place] [address] [facility]: [address] [place] [address] [phone] [place] CRISIS AND ACCESS LINE: * The [facility] goal is to take chronically homeless men and help them overcome their barriers, change them as human beings, making them productive and self- sufficient individuals. Each [facility] participant is housed at our facility for up to a year while they participate in transitional work (earning $7.40/hr for 30+ hours per week). All participants renounce dependency and remain drug and alcohol free. Personal support, case management, and workforce training is offered throughout the program. We also provide AA/NA Classes, GED classes, support in obtaining a fuel oil truck driver's licenses, help setting up a bank account, and life skill preparation courses. IF A MAN IS COMMITTED TO BEING CLEAN, TO ADDRESSING THE PAST, AND TO WORKING, WE WILL HELP HIM GET A BIOMETRICS EXPERIMENTALIST JOB, TRANSPORTATION AND PERMANENT HOUSING WITHIN A YEAR. [facility] [address] [place], [place] [id number] [email or web address] HOMELESS RESOURCES: [facility] NEED HELP? If you are in need of help or know someone who does, please contact us at [email or web address] or call , or come to our offices at [address] [place] [address], Tuesday-Tuesday beginning at 8AM. [facility] only Admission at 7am Tue to Tue Address: [address] [place] [address] Client Engagement Center [phone] Regular program admission occurs Tuesday through Tuesday at 7:00 am and operates on a first come, first serve basis. Because we cant anticipate program availability in advance and program spots are in high demand, we recommend arriving early. Space fills up fast! Next steps can include: Assignment to a [facility] program bed Connection to and placement in a partner program, or Referral to a partner agency [place]: [facility] Address: [address] [place] [address] How do I join the [facility] housing program? Our housing programs are offered based on availability. If you are looking to participate in our housing program, simply call [phone] to find out if we have available space. Since we do receive many calls, please allow up to 48 hours for one of our housing specialists to return your call. If we do not have vacancies, we suggest calling the [facility] hotline at [facility] for additional housing options. [facility] only Admission at 4:30pm daily Address: [address] , [place] [address] [facility] Services Admission from 8am to 10am Daily No intake until 03/17/20 Address: [address] , [place] [address] [facility] Providers: Travis Rai [phone] Address: [address] [place] [address] [place] [id number] Mr. Thorpe: [phone] Abran Escobar [phone] Ms. Mcgarry: [phone] Chelsey Dakota [phone] Ms. Fernandez [phone] [facility] [phone] Ms. Muñoz: [phone] [facility] [phone] [facility] Home: [facility] [phone] PC Prescriptions: Mirtazapine [Remeron] 15 mg PO QHS 30 Days #30 OLANZapine [Zyprexa] 15 mg PO DAILY 30 Days #30 [facility]errals[facility] [Outside] - 3-5 Days LAWANDA BRUNNER MD [Primary Care Provider] - 3-5 Days <PRAFUL ABREU - Last Filed: 07/08/21 23:42> ED Review of Systems ROS: Stated complaint: PSYCH Other details as noted in HPI ED Course Vital Signs 07/06/21 07/07/21 07/07/21 18:13 09:01 10:36 Temperature 98.5 F 97.9 F Pulse Rate 96 H 80 Respiratory 16 18 Rate Blood Pressure 127/73 149/89 [Left] O2 Sat by Pulse 98 97 97 Oximetry 07/07/21 14:41 Temperature 98.6 F Pulse Rate 67 Respiratory 18 Rate Blood Pressure 140/90 [Left] O2 Sat by Pulse 98 Oximetry - Consultations Consultation #1: 07/07/21 07:35 Patient seen by myself and exhibits rambling speech. Patient denies suicidal homicidal ideation. Awaiting [facility] ED Medical Decision Making - Lab Data Result diagrams: 07/07/21 07:21 07/07/21 07:21 Critical care attestation.: If time is entered above; I have spent that time in minutes in the direct care of this critically ill patient, excluding procedure time. ED Disposition Is pt being admited?: No Does the pt Need Aspirin: No
[2021-07-07 07:34] LABS: Basophils # (Auto) 0.1 K/mm3 (0.0-0.1); Basophils % (Auto) 0.7 % (0.0-1.8); Eosinophils # (Auto) 0.3 K/mm3 (0.0-0.4); Eosinophils % (Auto) 3.8 % (0.0-4.3); Hematocrit 35.5 % (35.5-45.6); Hemoglobin 11.3 gm/dl (11.8-15.2); Lymphocytes # (Auto) 0.9 K/mm3 (1.2-5.4); Lymphocytes % (Auto) 9.9 % (13.4-35.0); Mean Corpuscular HGB Conc 32 % (32-34); Mean Corpuscular Volume 81 fl (84-94); Monocytes # (Auto) 0.6 K/mm3 (0.0-0.8); Monocytes % (Auto) 6.5 % (0.0-7.3); Platelet Count 353 K/mm3 (140-440); Red Blood Count 4.41 M/mm3 (3.65-5.03); Red Cell Distribution Width 14.9 % (13.2-15.2)
[2021-07-07 07:51] LABS: BUN/Creatinine Ratio 14; Blood Urea Nitrogen 11 mg/dL (9-20); Calcium 9.2 mg/dL (8.4-10.2); Hemolysis Index 0
[2021-07-07] MEDS ORDERED: LORazepam 1 MG TAB PO ONE (08:00)
[2021-07-07] MEDS ORDERED: ZIPRASIDONE MESYLATE 20 MG VIAL IM ONE (08:40)
--- NOTE | 2021-07-07 10:32 | Consultation ---
History of Present Illness - Reason for Consult Consult date: 07/07/21 Reason for consult: mental health evaluation - History of Present Psychiatric Illness The patient is a 51 year old male with history of schizophrenia and bipolar. The patient was seen this morning. He was loud and pacing. The patient is homeless and well known to this establishment. The patient states "I has maggots in my legs." The patient seems anxious and responding to internal stimuli. He denies any current suicidal ideation and denies command auditory hallucinations. PAST PSYCHIATRIC HISTORY: reported or document Family Psychiatric History: None reported or documented SOCIAL HISTORY REVIEW OF SYSTEMS Assessment and Plan (1) Schizophrenia Treatment Plan case management Continue Zyprexa 15mg po daily Continue Remeron 15mg po QHS Sitter: refer to medical Medical: per primary Disposition: Do not recommend acute psychiatric inpatient treatment. Surveillance Director will provide patient with psychiatric outpatient resources resources. Will sign off. Thanks Case staffed with Dr. Tipton Medications and Allergies Medications and Allergies Allergies Allergy/AdvReac Type Severity Reaction Status Date / Time broccoli Allergy Unknown Verified 12/15/20 04:11 egg Allergy Unknown Verified 12/15/20 04:11 Penicillins Allergy Unknown Verified 12/15/20 04:11 pork derived (porcine) Allergy Unknown Verified 12/15/20 04:11 turkey Allergy Unknown Verified 12/15/20 04:11 benztropine [From Cogentin] AdvReac Unknown Verified 06/12/21 17:39 chicken derived AdvReac Unknown Verified 12/15/20 04:11 haloperidol [From Haldol] AdvReac Unknown Verified 06/12/21 17:39 Home Medications Medication Instructions Recorded Confirmed Last Taken Type Midodrine [Proamatine] 15 mg PO TID #60 tablet 06/06/20 Unknown Rx Mirtazapine [Remeron 15mg TAB] 15 mg PO QHS #30 tablet 06/06/20 Unknown Rx OLANzapine [ZyPREXA] 15 mg PO QDAY #30 tablet 06/06/20 Unknown Rx VALPROIC ACID Liq [DepaKENE Liq] 500 mg PO BID 30 Days 06/06/20 Unknown Rx Omeprazole 20 mg PO DAILY 30 Days #30 05/26/21 Unknown Rx Mupirocin [Bactroban 2% OINT] 1 applic TP TID #22 tube 06/13/21 Unknown Rx Sulfamethoxazole/Trimethoprim 1 each PO Q12H #20 tab 06/13/21 Unknown Rx [Bactrim DS TAB] Clindamycin [Clindamycin CAP] 300 mg PO Q8H #30 cap 06/24/21 Unknown Rx Mirtazapine [Remeron] 15 mg PO QHS 30 Days #30 06/24/21 Unknown Rx OLANZapine [Zyprexa] 15 mg PO DAILY 30 Days #30 06/24/21 Unknown Rx Mirtazapine [Remeron] 15 mg PO QHS 30 Days #30 07/07/21 Unknown Rx OLANZapine [Zyprexa] 15 mg PO DAILY 30 Days #30 07/07/21 Unknown Rx Mental Status Exam - Vital signs Last Vital Signs Temp 97.9 F 07/07/21 09:01 Pulse 80 07/07/21 09:01 Resp 18 07/07/21 09:01 BP 149/89 07/07/21 09:01 Pulse Ox 97 07/07/21 09:01 Results Result Diagrams: 07/07/21 07:21 07/07/21 07:21 Abnormal lab results 07/07/21 07/07/21 07/07/21 Range/Units 07:21 07:21 07:21 Hgb 11.3 L (11.8-15.2) gm/dl MCV 81 L (84-94) fl MCH 26 L (28-32) pg Lymph % (Auto) 9.9 L (13.4-35.0) % Lymph # (Auto) 0.9 L (1.2-5.4) K/mm3 Seg Neutrophils % 79.1 H (40.0-70.0) % Salicylates < 0.3 L (2.8-20.0) mg/dL Acetaminophen 5.0 L (10.0-30.0) ug/mL All other labs normal.
--- NOTE | 2021-07-07 12:11 | Emergency Department Report ---
Blank Doc - Documentation Documentation: 51-year-old male with past medical history of schizophrenia homelessness with frequent ER visits to the hospital for same has been cleared by ED provider for psychiatric placement and has been cleared by mental health for discharge with outpatient psychiatric medication. Case management consultation was recommended by mental health. Patient has been prepped for discharge pending case management evaluation
[2021-07-07 14:42] VITALS: BP 140/90
== END 2021-07-07 14:43 | disposition home or self-care (01) ==
LOC: ED 17:49
DX: F20.9 Schizophrenia, unspecified (principal); L97.929 Non-pressure chronic ulcer of unspecified part of left lower leg with unspecified severity; Z59.00 Homelessness unspecified; I10 Essential (primary) hypertension; E11.9 Type 2 diabetes mellitus without complications; Z98.890 Other specified postprocedural states; Z79.899 Other long term (current) drug therapy; F17.200 Nicotine dependence, unspecified, uncomplicated; Z91.012 Allergy to eggs; Z91.02 Food additives allergy status; Z88.0 Allergy status to penicillin; Z91.014 Allergy to mammalian meats; Z91.09 Other allergy status, other than to drugs and biological substances
CPT/HCPCS: 36415; 80048; 85025; 96372; 99284; J3486; 80320; G0480

== ENCOUNTER 2021-07-07 23:46 | Emergency (ER) | payer MEDICAID ==
--- NOTE | 2021-07-08 08:09 | Emergency Department Report ---
ED General Adult HPI - General Chief complaint: Wound/Laceration Stated complaint: WOUND Source: patient Mode of arrival: Ambulatory Limitations: Physical Limitation - History of Present Illness Initial comments: 51-year-old male presents to the ED with no complaints. Patient is homeless and current looking for a place to stay. Patient has no medical complaints as of today. Patient has a chronic left leg ulcer that he was evaluated 3 days ago. Patient has frequent ER visit with various complaints. Patient states that he needs somewhere to stay. Patient denies any homicidal or suicidal ideation at. Patient is alert and oriented x3. No acute distress no. No ill appearance no. - Related Data Previous Rx's Medication Instructions Recorded Last Taken Type Midodrine [Proamatine] 15 mg PO TID #60 tablet 06/06/20 Unknown Rx Mirtazapine [Remeron 15mg TAB] 15 mg PO QHS #30 tablet 06/06/20 Unknown Rx OLANzapine [ZyPREXA] 15 mg PO QDAY #30 tablet 06/06/20 Unknown Rx VALPROIC ACID Liq [DepaKENE Liq] 500 mg PO BID 30 Days 06/06/20 Unknown Rx Omeprazole 20 mg PO DAILY 30 Days #30 05/26/21 Unknown Rx Mupirocin [Bactroban 2% OINT] 1 applic TP TID #22 tube 06/13/21 Unknown Rx Sulfamethoxazole/Trimethoprim 1 each PO Q12H #20 tab 06/13/21 Unknown Rx [Bactrim DS TAB] Clindamycin [Clindamycin CAP] 300 mg PO Q8H #30 cap 06/24/21 Unknown Rx Mirtazapine [Remeron] 15 mg PO QHS 30 Days #30 06/24/21 Unknown Rx OLANZapine [Zyprexa] 15 mg PO DAILY 30 Days #30 06/24/21 Unknown Rx Mirtazapine [Remeron] 15 mg PO QHS 30 Days #30 07/07/21 Unknown Rx OLANZapine [Zyprexa] 15 mg PO DAILY 30 Days #30 07/07/21 Unknown Rx Allergies Allergy/AdvReac Type Severity Reaction Status Date / Time broccoli Allergy Unknown Verified 07/07/21 12:16 egg Allergy Unknown Verified 07/07/21 12:16 Penicillins Allergy Unknown Verified 07/07/21 12:16 pork derived (porcine) Allergy Unknown Verified 07/07/21 12:16 turkey Allergy Unknown Verified 07/07/21 12:16 benztropine [From Cogentin] AdvReac Unknown Verified 07/07/21 12:16 chicken derived AdvReac Unknown Verified 07/07/21 12:16 haloperidol [From Haldol] AdvReac Unknown Verified 07/07/21 12:16 ED Review of Systems ROS: Stated complaint: WOUND Other details as noted in HPI Constitutional: denies: chills, fever Eyes: denies: eye pain, eye discharge, vision change ENT: denies: ear pain, throat pain Respiratory: denies: cough, shortness of breath, wheezing Cardiovascular: denies: chest pain, palpitations Endocrine: no symptoms reported Gastrointestinal: denies: abdominal pain, nausea, diarrhea Genitourinary: denies: urgency, dysuria Musculoskeletal: denies: back pain, joint swelling, arthralgia Skin: other (ulcer). denies: rash, lesions Neurological: denies: headache, weakness, paresthesias Psychiatric: denies: anxiety, depression Hematological/Lymphatic: denies: easy bleeding, easy bruising ED Past Medical Hx - Past Medical History Hx Hypertension: Yes Hx Diabetes: Yes (Borderline) Hx Deep Vein Thrombosis: No Hx Psychiatric Treatment: Yes (Schizophrenia, bipolar disorder) Additional medical history: Lymphedema - Surgical History Hx Pacemaker: No Hx Internal Defibrillator: No Additional Surgical History: leg - Social History Smoking Status: Never Smoker - Medications Home Medications: Home Medications Medication Instructions Recorded Confirmed Last Taken Type Midodrine [Proamatine] 15 mg PO TID #60 tablet 06/06/20 Unknown Rx Mirtazapine [Remeron 15mg TAB] 15 mg PO QHS #30 tablet 06/06/20 Unknown Rx OLANzapine [ZyPREXA] 15 mg PO QDAY #30 tablet 06/06/20 Unknown Rx VALPROIC ACID Liq [DepaKENE Liq] 500 mg PO BID 30 Days 06/06/20 Unknown Rx Omeprazole 20 mg PO DAILY 30 Days #30 05/26/21 Unknown Rx Mupirocin [Bactroban 2% OINT] 1 applic TP TID #22 tube 06/13/21 Unknown Rx Sulfamethoxazole/Trimethoprim 1 each PO Q12H #20 tab 06/13/21 Unknown Rx [Bactrim DS TAB] Clindamycin [Clindamycin CAP] 300 mg PO Q8H #30 cap 06/24/21 Unknown Rx Mirtazapine [Remeron] 15 mg PO QHS 30 Days #30 06/24/21 Unknown Rx OLANZapine [Zyprexa] 15 mg PO DAILY 30 Days #30 06/24/21 Unknown Rx Mirtazapine [Remeron] 15 mg PO QHS 30 Days #30 07/07/21 Unknown Rx OLANZapine [Zyprexa] 15 mg PO DAILY 30 Days #30 07/07/21 Unknown Rx ED Physical Exam - General Limitations: Physical Limitation - Extremities Exam Extremities exam: Present: joint swelling ED Course Vital Signs 07/07/21 07/08/21 23:54 08:27 Temperature 97.1 F L Pulse Rate 102 H 75 Respiratory 18 16 Rate Blood Pressure 132/84 Blood Pressure 141/78 [Left] O2 Sat by Pulse 100 96 Oximetry ED Medical Decision Making - Medical Decision Making 51-year-old male presents to the ED with no complaints. Patient is homeless and current looking for a place to stay. Patient has no medical complaints as of today. Patient has a chronic left leg ulcer that he was evaluated 3 days ago. Patient has frequent ER visit with various complaints. Patient states that he needs somewhere to stay. Patient denies any homicidal or suicidal ideation at. Patient is alert and oriented x3. No acute distress no. No ill appearance no. Physical examination is unremarkable. Patient has t shirt tied around left lower leg. Rechecked the patient is resting quietly quietly and comfortable and feeling better. I discussed the results of diagnostic study, my clinical impression and the plan for further treatment with the patient. Patient agrees with plan and discharge at this present time. All question addressed. I have given the patient instruction regarding a diagnosis ,expectation ,follow- up and return precaution. I explained to the patient that emergent condition may arise and to return to the ED for new worsen and any new persisting condition. I have explained the importance of following up with the primary care physician or referral physician listed below has instructed. The patient verbalized understanding of discharge instruction. Critical care attestation.: If time is entered above; I have spent that time in minutes in the direct care of this critically ill patient, excluding procedure time. ED Disposition Clinical Impression: Chronic ulcer of left leg Qualifiers: Non-pressure ulcer stage: with fat layer exposed Qualified Code(s): L97.922 - Non-pressure chronic ulcer of unspecified part of left lower leg with fat layer exposed Disposition: 01 HOME / SELF CARE / HOMELESS Is pt being admited?: No Does the pt Need Aspirin: No Condition: Stable Instructions: Venous Ulcer, [id number] Additional Instructions: Return to the ED for any worsening symptom Follow-up with your primary care doctor Referrals: LAWANDA BRUNNER MD [Primary Care Provider] - 3-5 Days [facility] [Outside] - 3-5 Days Time of Disposition: 08:09
[2021-07-08 08:29] VITALS: BP 141/78
== END 2021-07-08 08:27 | disposition home or self-care (01) ==
LOC: ED 23:46
DX: L97.929 Non-pressure chronic ulcer of unspecified part of left lower leg with unspecified severity (principal); I10 Essential (primary) hypertension; Z88.0 Allergy status to penicillin; Z88.5 Allergy status to narcotic agent; Z91.018 Allergy to other foods
CPT/HCPCS: 99282

== ENCOUNTER 2021-07-08 22:26 | Emergency (ER) | payer MEDICAID | END 2021-07-09 01:19 | disposition left against medical advice (07) | LOC: ED 22:26 | DX: Z48.00 Encounter for change or removal of nonsurgical wound dressing (principal); Z53.21 Procedure and treatment not carried out due to patient leaving prior to being seen by health care provider ==